=== PATIENT | female | born 1945 | race African-American/Black ===

== ENCOUNTER 2017-06-16 16:11 | Emergency (ER) | payer OTHER ==
[2017-06-16] MEDS ORDERED: NA CHLORIDE 0.9% 500 ML ONE (17:07)
[2017-06-16] MEDS ORDERED: INSULIN -REGULAR HUMAN 50 UNIT/0.5 ML ML ONE (17:07)
[2017-06-16 17:14] LABS: Absolute Lymphocytes (CBC) 2.5 K/uL (0.7-4.9); Absolute Monocytes 0.4 K/uL (0.1-1.3); Basophils % 0.5 % (0-1.3); Eosinophils % 1.4 % (0-4.4); Hematocrit 40.2 % (36.0-45.0); Lymphocytes % 42.1 % (15.3-44.8); MCH 26.3 pg (27.0-35.0); MCV 82.9 fL (80-100); MPV 10.7 fL (7.6-11.3); RBC Red Blood Cell Count 4.85 M/uL (3.86-4.86)
[2017-06-16 17:26] LABS: Potassium 4.9 mEq/L (3.6-5.0)
--- NOTE | 2017-06-16 17:51 | ER ---
Nurse's Notes [facility] Name: Miya Emanuel Age: 71 yrs Sex: Female : 1945 Arrival Date: 06/16/2017 Time: 16:14 Bed 5 Private MD: Jacob Khan Diagnosis: Hyperglycemia, unspecified Presentation: 06/16 16:08 Presenting complaint: EMS states: Pt woke up today with a BS of 460, ate breakfast and sv rechecked her BS and it was 520. On EMS arrival BS was 510. Pt stated she had a headache today but it is gone at this time. Pt is taking her medications as prescribed. Transition of care: patient was not received from another setting of care. Onset of symptoms was June 16, 2017. Care prior to arrival: 1 IV attempt but unsuccessful. 16:08 Method Of Arrival: EMS: [facility] sv 16:08 Acuity: SHIRLEY 3 sv Triage Assessment: 16:18 General: Appears in no apparent distress. comfortable, slender, well groomed, well sv developed, Behavior is calm, cooperative, appropriate for age. Pain: Denies pain. EENT: No signs and/or symptoms were reported regarding the EENT system. Neuro: Level of Consciousness is awake, alert, obeys commands, Oriented to person, place, time, situation, Moves all extremities. Full function Speech is normal. Cardiovascular: Patient's skin is warm and dry. Respiratory: Respiratory effort is even, unlabored, Respiratory pattern is regular, symmetrical. GI: Abdomen is flat, Patient currently denies diarrhea, nausea, vomiting. Derm: Skin is normal. Musculoskeletal: Range of motion: intact in all extremities. Historical: - Allergies: 16:18 No Known Allergies; sv - PMHx: 16:18 Diabetes - NIDDM; heart attack; Hepatitis C; Hyperlipidemia; Hypertension; sv - Immunization history:: Adult Immunizations up to date. - Social history:: The patient lives at home, Smoking status: Patient/guardian denies using tobacco. Screenin:19 Abuse screen: Denies threats or abuse. Denies injuries from another. Nutritional sv screening: No deficits noted. Tuberculosis screening: No symptoms or risk factors identified. Fall Risk None identified. Assessment: 16:18 Reassessment: See triage assessment. sv 17:29 Reassessment: Patient appears in no apparent distress at this time. Patient and/or sv family updated on plan of care and expected duration. Pain level reassessed. Patient is alert, oriented x 3, equal unlabored respirations, skin warm/dry/pink. Vital Signs: 16:19 BP 167 / 78; Pulse 72; Resp 18; Temp 98(O); Pulse Ox 100% on R/A; Weight 71.67 kg (R); sv Height 5 ft. 2 in. (157.48 cm) (R); Pain 0/10; 17:30 BP 163 / 88; Pulse 72; Resp 16; Pulse Ox 98% on R/A; Pain 0/10; sv 16:19 Body Mass Index 28.90 (71.67 kg, 157.48 cm) sv ED Course: 16:14 Patient arrived in ED. sv 16:14 Althea Cunningham, RN is Primary Nurse. sv 16:16 Triage completed. sv 16:16 Francisco Javier Adams MD is Attending Physician. gs 16:18 Arm band placed on right wrist. sv 16:19 Patient has correct armband on for positive identification. Bed in low position. Call sv light in reach. Side rails up X2. Pulse ox on. NIBP on. Head of bed elevated. 16:21 Inserted saline lock: 20 gauge in right antecubital area, using aseptic technique. sv Blood collected. 16:27 Jacob Khan MD is Private Physician. hb 16:37 ED physician to see patient. sv 16:57 Basic Metabolic Panel Sent. sv 16:57 CBC with Diff Sent. sv 17:51 Jacob Khan MD is Referral Physician. gs 17:59 No provider procedures requiring assistance completed. IV discontinued, intact, hb bleeding controlled, No redness/swelling at site. Pressure dressing applied. Administered Medications: 16:50 Drug: NS 0.9% 500 ml Route: IV; Rate: bolus; Site: right antecubital; sv 17:29 Follow up: Response: No adverse reaction; IV Status: Completed infusion; IV Intake: sv 500ml 16:50 Drug: Insulin Regular Human 5 units {Co-Signature: sv (Althea Cunningham RN).} Route: ss IVP; Site: left antecubital; 17:29 Follow up: Response: No adverse reaction; Blood sugar is lowered Point of Care Testing: Blood Glucose: 16:16 Blood Glucose: 416 mg/dL; sv 17:29 Blood Glucose: 305 mg/dL; sv Ranges: Intake: 17:29 IV: 500ml; Total: 500ml. sv Outcome: 17:51 Discharge ordered by . 17:59 Discharged to home ambulatory. hb 17:59 Condition: stable 17:59 Discharge instructions given to patient, Instructed on discharge instructions, follow up and referral plans. medication usage, Demonstrated understanding of instructions, follow-up care, medications. 17:59 Patient left the ED. hb Signatures: Althea Cunningham RN RN sv Lorna Orellana RN RN Martine Khoury RN RN hb Francisco Javier Adams MD MD Althea Cunningham RN sv Corrections: (The following items were deleted from the chart) 16:57 16:21 Inserted saline lock: 20 gauge in left antecubital area, using aseptic technique. sv Blood collected. sv
--- NOTE | 2017-06-16 17:51 | EDPHYS ---
Physician Documentation [facility] Name: Miya Emanuel Age: 71 yrs Sex: Female : 1945 Arrival Date: 06/16/2017 Time: 16:14 Bed 5 Private MD: Jacob Sales ED Physician Francisco Javier Adams HPI: 06/16 17:48 This 71 yrs old Black Female presents to ER via EMS with complaints of High Blood Sugar.gs 17:49 The patient or guardian reports hyperglycemia. Onset: The symptoms/episode gs began/occurred 1 month(s) ago, and became persistent. Associated signs and symptoms: Pertinent negatives: anorexia, constipation, diaphoresis. Current symptoms: In the emergency department the patient's symptoms are unchanged from the initial presentation. The patient has experienced similar episodes in the past, multiple times. The patient has been recently seen by a physician: the patient's primary care provider, Dr. sales. Historical: - Allergies: 16:18 No Known Allergies; sv - PMHx: 16:18 Diabetes - NIDDM; heart attack; Hepatitis C; Hyperlipidemia; Hypertension; sv - Immunization history:: Adult Immunizations up to date. - Social history:: The patient lives at home, Smoking status: Patient/guardian denies using tobacco. ROS: 17:49 All other systems are negative. gs Exam: 17:49 Head/Face: Normocephalic, atraumatic. Eyes: Pupils equal round and reactive to light, gs extra-ocular motions intact. Lids and lashes normal. Conjunctiva and sclera are non-icteric and not injected. Cornea within normal limits. Periorbital areas with no swelling, redness, or edema. ENT: Nares patent. No nasal discharge, no septal abnormalities noted. Tympanic membranes are normal and external auditory canals are clear. Oropharynx with no redness, swelling, or masses, exudates, or evidence of obstruction, uvula midline. Mucous membranes moist. Neck: Trachea midline, no thyromegaly or masses palpated, and no cervical lymphadenopathy. Supple, full range of motion without nuchal rigidity, or vertebral point tenderness. No Meningismus. Chest/axilla: Normal chest wall appearance and motion. Nontender with no deformity. No lesions are appreciated. Cardiovascular: Regular rate and rhythm with a normal S1 and S2. No gallops, murmurs, or rubs. Normal PMI, no JVD. No pulse deficits. Respiratory: Lungs have equal breath sounds bilaterally, clear to auscultation and percussion. No rales, rhonchi or wheezes noted. No increased work of breathing, no retractions or nasal flaring. Abdomen/GI: Soft, non-tender, with normal bowel sounds. No distension or tympany. No guarding or rebound. No evidence of tenderness throughout. Back: No spinal tenderness. No costovertebral tenderness. Full range of motion. Skin: Warm, dry with normal turgor. Normal color with no rashes, no lesions, and no evidence of cellulitis. MS/ Extremity: Pulses equal, no cyanosis. Neurovascular intact. Full, normal range of motion. Neuro: Awake and alert, GCS 15, oriented to person, place, time, and situation. Cranial nerves II-XII grossly intact. Motor strength 5/5 in all extremities. Sensory grossly intact. Cerebellar exam normal. Normal gait. 17:49 Constitutional: The patient appears alert, awake. Vital Signs: 16:19 BP 167 / 78; Pulse 72; Resp 18; Temp 98(O); Pulse Ox 100% on R/A; Weight 71.67 kg (R); sv Height 5 ft. 2 in. (157.48 cm) (R); Pain 0/10; 17:30 BP 163 / 88; Pulse 72; Resp 16; Pulse Ox 98% on R/A; Pain 0/10; sv 16:19 Body Mass Index 28.90 (71.67 kg, 157.48 cm) sv MDM: 16:35 Patient medically screened. gs 17:49 Differential diagnosis: DKA, hyperglycemia, hypoglycemic episode. Data reviewed: vital gs signs, nurses notes. Response to treatment: the patient's symptoms have markedly improved after treatment, and as a result, I will discharge patient. 06/16 16:17 Order name: Glucose, Ancillary Testing; Complete Time: 16:28 EDMS 06/16 16:41 Order name: CBC with Diff 06/16 16:41 Order name: Basic Metabolic Panel 06/16 17:16 Order name: CBC with Automated Diff; Complete Time: 17:48 EDMS 06/16 17:18 Order name: Basic Metabolic Panel; Complete Time: 17:48 EDMS 06/16 17:30 Order name: Glucose, Ancillary Testing; Complete Time: 17:48 EDMS Administered Medications: 16:50 Drug: NS 0.9% 500 ml Route: IV; Rate: bolus; Site: right antecubital; sv 17:29 Follow up: Response: No adverse reaction; IV Status: Completed infusion; IV Intake: sv 500ml 16:50 Drug: Insulin Regular Human 5 units {Co-Signature: (Althea Cunningham RN).} Route: ss IVP; Site: left antecubital; 17:29 Follow up: Response: No adverse reaction; Blood sugar is lowered sv Point of Care Testing: Blood Glucose: 16:16 Blood Glucose: 416 mg/dL; sv 17:29 Blood Glucose: 305 mg/dL; sv Ranges: Critical Glucose Levels:Adult <50 mg/dl or >400 mg/dl <40 mg/dl or >180 mg/dl Disposition: 06/16/17 17:51 Discharged to Home. Impression: Hyperglycemia, unspecified. - Condition is Stable. - Discharge Instructions: Hyperglycemia. - Medication Reconciliation Form, Thank You Letter, Antibiotic Education, Prescription Opioid Use form. - Follow up: Jacob Sales MD; When: Tomorrow. Signatures: Dispatcher [employer] Althea Menon RN RN sv Smirch, Shelby, RN RN ss Baxter, Heather, RN RN hb Starr, Gregory, MD MD Althea prabhakar
[2017-06-16 18:11] VITALS: TEMP 98
[2017-06-16 18:12] VITALS: BP 163/88; O2SAT 98
== END 2017-06-16 17:59 | disposition home or self-care (01) ==
LOC: ER 16:11
DX: E11.65 Type 2 diabetes mellitus with hyperglycemia (principal); I10 Essential (primary) hypertension
CPT/HCPCS: 36415; 80048; 82962; 85025; 96361; 96374; 99284

== ENCOUNTER 2017-07-17 12:19 | Emergency (ER) | payer OTHER ==
--- NOTE | 2017-07-17 13:11 | ER ---
Nurse's Notes [facility] Name: Miya Emanuel Age: 71 yrs Sex: Female : 1945 Arrival Date: 07/17/2017 Time: 12:16 Bed 23 Private MD: Diagnosis: Constipation Presentation: 07/17 12:16 Presenting complaint: Patient states: rectal pain that began one hour ago after having ss a small BM. Pt states, "they looked like two little rocks. I've been constipated, but not like this." Pt states her last normal bowel movement was yesterday or the day before. Transition of care: patient was not received from another setting of care. Onset of symptoms was July 17, 2017. Initial Sepsis Screen: Does the patient meet any 2 criteria? No. Patient's initial sepsis screen is negative. Does the patient have a suspected source of infection? No. Patient's initial sepsis screen is negative. Care prior to arrival: None. 12:16 Method Of Arrival: EMS: [facility] 12:16 Acuity: SHIRLEY 3 ss Historical: - Allergies: 12:22 No Known Allergies; ss - PMHx: 12:22 Diabetes - NIDDM; Hepatitis C; Hyperlipidemia; Hypertension; CAD; Myocardial infarction;ss - PSHx: 12:22 Cholecystectomy; CABG; Tonsillectomy; ss - Immunization history:: Adult Immunizations unknown. - Social history:: Smoking status: Patient/guardian denies using tobacco. Screenin:23 Abuse screen: Denies threats or abuse. Denies injuries from another. Nutritional ss screening: No deficits noted. Tuberculosis screening: Never had TB. Fall Risk None identified. Assessment: 12:23 General: Appears distressed, uncomfortable, Behavior is calm, cooperative, Denies ss fever, feeling ill, fatigue, chills. Pain: Complains of pain in rectum, anus Pain currently is 10 out of 10 on a pain scale. Quality of pain is described as sharp, tender, Pain began 1 hour ago. Is continuous. Neuro: Level of Consciousness is awake, alert, obeys commands, Oriented to person, place, time, situation. Cardiovascular: Capillary refill < 3 seconds is brisk in bilateral fingers. Respiratory: Airway is patent Respiratory effort is even, unlabored, Respiratory pattern is regular, symmetrical, Breath sounds are clear bilaterally. Denies cough, pain with respiration, pain with cough, pain with movement. GI: Abdomen is non-distended, Bowel sounds present X 4 quads. Abd is soft and non tender X 4 quads. EENT: Oral mucosa is moist. Derm: Skin is intact, is healthy with good turgor, Skin is dry, Skin is pink, warm \\T\\ dry. normal. Musculoskeletal: Circulation, motion, and sensation intact. Capillary refill < 3 seconds, is brisk, in bilateral fingers. Range of motion: intact in all extremities, Swelling absent. 12:57 Reassessment: Pt was in restroom and reports she had a large BM with little blood only ss when she wiped. Pt reports feeling much better and reports only soreness to her rectum. RADHA Davila notified. Pt states, "If y'all want me to stay, I'll stay, but I figured I would just stay here until I had a BM.". Vital Signs: 12:22 BP 214 / 97; Pulse 83; Resp 18; Temp 98.2(TE); Pulse Ox 98% on R/A; Weight 71.67 kg; ss Height 5 ft. 2 in. (157.48 cm); Pain 0/10; 13:00 BP 177 / 92; Pulse 82; Resp 15; Pulse Ox 99% on R/A; Pain 1/10; ss 12:22 Body Mass Index 28.90 (71.67 kg, 157.48 cm) ss ED Course: 12:16 Patient arrived in ED. ss 12:16 Donato Schneider PA is PHCP. cp 12:16 Lemuel Luong MD is Attending Physician. cp 12:20 Triage completed. ss 12:22 Arm band placed on right wrist. ss 12:23 Patient has correct armband on for positive identification. Placed in gown. Bed in low ss position. Call light in reach. 12:45 Lorna Orellana RN is Primary Nurse. ss 13:38 No provider procedures requiring assistance completed. Patient did not have IV access ss during this emergency room visit. Administered Medications: 13:36 Not Given (After BM, patient has no complaints): Zofran 4 mg IVP once; over 2 minutes ss 13:37 Not Given (After BM, patient has no complaints at this time. ): morphine 2 mg IVP once ss Outcome: 13:10 Discharge ordered by . cp 13:38 Discharged to home ambulatory, with family. ss 13:38 Condition: good 13:38 Discharge instructions given to patient, family, Instructed on discharge instructions, follow up and referral plans. Demonstrated understanding of instructions, follow-up care. 13:39 Patient left the ED. ss Signatures: Lorna Orellana RN RN ss Donato Schneider, RADHA GARCIA cp
--- NOTE | 2017-07-17 13:12 | EDPHYS ---
Physician Documentation [facility] Name: Miya Emanuel Age: 71 yrs Sex: Female : 1945 Arrival Date: 07/17/2017 Time: 12:16 Bed 23 Private MD: ED Physician Lemuel Luong HPI: 07/17 12:50 This 71 yrs old Black Female presents to ER via EMS with complaints of Constipation. cp 12:50 The patient presents to the emergency department with pain in the rectal area, that is cp moderate, constipation. 12:50 Onset: The symptoms/episode began/occurred today. Associate signs and symptoms: cp Pertinent positives: constipation, Pertinent negatives: abdominal pain, diarrhea, dysuria, fever, lower GI bleeding, vomiting. Historical: - Allergies: 12:22 No Known Allergies; ss - PMHx: 12:22 Diabetes - NIDDM; Hepatitis C; Hyperlipidemia; Hypertension; CAD; Myocardial infarction;ss - PSHx: 12:22 Cholecystectomy; CABG; Tonsillectomy; ss - Immunization history:: Adult Immunizations unknown. - Social history:: Smoking status: Patient/guardian denies using tobacco. ROS: 12:55 Constitutional: Negative for body aches, chills, fever, poor PO intake. cp 12:55 Eyes: Negative for injury, pain, redness, and discharge. cp 12:55 ENT: Negative for drainage from ear(s), ear pain, sore throat, difficulty swallowing, difficulty handling secretions. 12:55 Cardiovascular: Negative for chest pain, edema, palpitations. 12:55 Respiratory: Negative for cough, shortness of breath, wheezing. 12:55 Abdomen/GI: Positive for constipation, rectal pain, Negative for abdominal pain. 12:55 Back: Negative for radiated pain. 12:55 : Negative for urinary symptoms. 12:55 Skin: Negative for cellulitis, rash. 12:55 Neuro: Negative for altered mental status, dizziness, headache, weakness. 12:55 All other systems are negative. Exam: 13:00 Constitutional: The patient appears in no acute distress, alert, awake, cp non-diaphoretic, non-toxic, well developed, well nourished, uncomfortable. 13:00 Head/Face: Normocephalic, atraumatic. cp 13:00 Eyes: Periorbital structures: appear normal, Conjunctiva: normal, no exudate, no injection, Sclera: no appreciated abnormality, Lids and lashes: appear normal, bilaterally. 13:00 ENT: External ear(s): are unremarkable, Nose: is normal, Mouth: Lips: moist, Oral mucosa: moist, Posterior pharynx: is normal, airway is patent, no erythema, no exudate. 13:00 Neck: ROM/movement: is normal, is supple, without pain, no range of motions limitations, no nuchal rigidity. 13:00 Chest/axilla: Inspection: normal, Palpation: is normal, no crepitus, no tenderness. 13:00 Cardiovascular: Rate: normal, Rhythm: regular. 13:00 Respiratory: the patient does not display signs of respiratory distress, Respirations: normal, no use of accessory muscles, no retractions, no splinting, no tachypnea, Breath sounds: are clear throughout, no decreased breath sounds, no stridor, no wheezing. 13:00 Abdomen/GI: Inspection: abdomen appears normal, Bowel sounds: active, all quadrants, Palpation: abdomen is soft and non-tender, in all quadrants, rebound tenderness, is not appreciated, voluntary guarding, is not appreciated, involuntary guarding, is not appreciated, Rectal exam: the exam is deferred, patient refused. 13:00 Back: CVA tenderness, is absent. 13:00 Skin: cellulitis, is not appreciated, no rash present. Vital Signs: 12:22 BP 214 / 97; Pulse 83; Resp 18; Temp 98.2(TE); Pulse Ox 98% on R/A; Weight 71.67 kg; ss Height 5 ft. 2 in. (157.48 cm); Pain 0/10; 13:00 BP 177 / 92; Pulse 82; Resp 15; Pulse Ox 99% on R/A; Pain 1/10; ss 12:22 Body Mass Index 28.90 (71.67 kg, 157.48 cm) MDM: 12:22 Patient medically screened. cp 13:06 ED course: VSS. Patient reports having BM while in ED and now pain resolved. Will cp discharge to home for continued monitoring. 13:08 Data reviewed: vital signs, nurses notes, and as a result, I will discharge patient. cp 13:08 Counseling: I had a detailed discussion with the patient and/or guardian regarding: the cp historical points, exam findings, and any diagnostic results supporting the discharge/admit diagnosis, to return to the emergency department if symptoms worsen or persist or if there are any questions or concerns that arise at home. 07/17 12:36 Order name: Amylase, Serum cp 07/17 12:36 Order name: Basic Metabolic Panel cp 07/17 12:36 Order name: Hepatic Function cp 07/17 12:36 Order name: Lipase cp 07/17 12:36 Order name: Urine Microscopic Only 07/17 13:06 Order name: Urine Dipstick--Ancillary (enter results) 2 07/17 13:07 Order name: Urine Dipstick-Ancillary [facility] 07/17 13:35 Order name: Urine Culture [facility] 07/17 12:36 Order name: Urine Dipstick-Ancillary (obtain specimen); Complete Time: 13:37 cp Administered Medications: 13:36 Not Given (After BM, patient has no complaints): Zofran 4 mg IVP once; over 2 minutes ss 13:37 Not Given (After BM, patient has no complaints at this time. ): morphine 2 mg IVP once ss Disposition: 16:38 Co-signature as Attending Physician, Lemuel Luong MD. rn Disposition: 07/17/17 13:10 Discharged to Home. Impression: Constipation. - Condition is Stable. - Discharge Instructions: Constipation, Adult. - Medication Reconciliation Form, Thank You Letter, Antibiotic Education, Prescription Opioid Use form. - Follow up: Private Physician; When: 1 - 2 days; Reason: Recheck today's complaints. - Problem is new. - Symptoms have improved. Signatures: Dispatcher [employer] Lemuel Garza MD MD rn Smirch, Shelby, RN RN ss Donato Schneider PA PA cp Corrections: (The following items were deleted from the chart) 13:10 12:37 Abdomen Pelvis W Con+CT.RAD.BRZ ordered. EDOK EDMS 13:17 12:37 Amylase Level ordered. EDOK EDMS 13:17 12:37 Basic Metabolic Panel ordered. EDOK EDMS 13:17 12:37 Liver (Hepatic) Function ordered. EDOK EDMS 13:17 12:37 Lipase ordered. EDOK EDMS 13:17 12:37 CBC+H.LAB.BRZ ordered. EDOK EDMS 13:17 12:37 Creatinine for Radiology+C.LAB.BRZ ordered. EDMS EDMS :37 12:36 IV Saline Lock ordered. cp ss 13:37 12:36 Labs collected and sent ordered. cp ss
[2017-07-17 13:15] LABS: Urine Blood NEGATIVE (NEG); Urine Glucose NEGATIVE (NEG); Urine Protein TRACE (NEG); Urine Specific Gravity 1.015 (1.005-1.030)
[2017-07-17 13:34] LABS: Urine Bacteria <20 /HPF (<20); Urine Culture Reflex Order REFLEXED; Urine Mucus NS /HPF (NONE SEEN); Urine RBC <5 /HPF (NONE SEEN)
[2017-07-17 13:43] VITALS: TEMP 98.2
[2017-07-17 13:44] VITALS: BP 177/92; O2SAT 99
== END 2017-07-17 13:39 | disposition home or self-care (01) ==
LOC: ER 12:19
DX: K59.00 Constipation, unspecified (principal); E11.9 Type 2 diabetes mellitus without complications; I10 Essential (primary) hypertension; E78.5 Hyperlipidemia, unspecified; I25.10 Atherosclerotic heart disease of native coronary artery without angina pectoris; B18.2 Chronic viral hepatitis C; I25.2 Old myocardial infarction
CPT/HCPCS: 81003; 81015; 87086; 87088; 99283

== ENCOUNTER 2017-09-01 15:19 | Emergency (ER) | payer OTHER ==
[2017-09-01] MEDS ORDERED: PANTOPRAZOLE 40 MG INJ ONE (15:39)
[2017-09-01] MEDS ORDERED: ONDANSETRON 4 MG/2 ML VIAL ONE ×3 (15:39→17:57)
[2017-09-01 15:58] LABS: Absolute Lymphocytes (CBC) 1.7 K/uL (0.7-4.9); Absolute Monocytes 0.3 K/uL (0.1-1.3); Absolute Neutrophil 4.4 K/uL (1.8-8.0); Basophils % 0.2 % (0-1.3); Eosinophils % 0.3 % (0-4.4); Hematocrit 42.9 % (36.0-45.0); Lymphocytes % 25.8 % (15.3-44.8); MPV 10.3 fL (7.6-11.3); Monocytes % 4.6 % (3.3-12.3); RBC Red Blood Cell Count 5.23 M/uL (3.86-4.86)
[2017-09-01] MEDS ORDERED: NA CHLORIDE 0.9% 1,000 ML ONE (15:58)
[2017-09-01 16:04] LABS: Protime INR 1.03
[2017-09-01 16:27] LABS: Potassium 4.4 mEq/L (3.6-5.0)
[2017-09-01 16:33] LABS: Albumin 3.9 g/dL (3.2-5.5); Bilirubin Direct 0.2 mg/dL (0-0.2); Bilirubin Total 1.3 mg/dL (0.3-1.2); Magnesium 1.5 mg/dL (1.8-2.5); Protein, Total 8.3 g/dL (6.0-8.3)
[2017-09-01 16:34] LABS: CKMB Creatine Kinase MB 3.2 ng/ml (0.3-4.0)
--- NOTE | 2017-09-01 16:39 | RAD REPORT ---
EXAM DESCRIPTION: CT - Head Brain Wo Cont - 09/01/2017 4:28 pm CLINICAL HISTORY: Dizziness and vomiting COMPARISON: 2015 TECHNIQUE: Computed axial tomography of the head was obtained. IV contrast was not requested. All CT scans are performed using dose optimization technique as appropriate and may include automated exposure control or mA/KV adjustment according to patient size. FINDINGS: An intracranial bleed is not seen . The ventricles are normal in caliber. No extra-axial fluid collection is noted. Mild to moderate low-density areas within periventricular, deep and subcortical white matter likely represent ischemic changes secondary to small vessel disease . Fluid within the sinuses/ mastoids is not seen. IMPRESSION: No acute intracranial abnormality is seen. If patient's symptoms persist MRI of the bra in would be recommended.
[2017-09-01] MEDS ORDERED: cloNIDine HCl 0.1 MG TAB ONE (16:52)
[2017-09-01] MEDS ORDERED: HYDRALAZINE HCL 20 MG/ML VIAL ONE (17:57)
--- NOTE | 2017-09-01 19:15 | RAD REPORT ---
EXAM DESCRIPTION: CT - Chest Abdomen Pelvis W Cont - 09/01/2017 6:53 pm CLINICAL HISTORY: Chest and abdominal pain. Vomiting COMPARISON: none TECHNIQUE: Computed axial tomography of the chest, abdomen and pelvis was obtained. 100 cc Isovue-30 0 was administered intravenously. Oral contrast was not requested. This limits evaluation of bowel. All CT scans are performed using dose optimization technique as appropriate and may include automated exposure control or mA/KV adjustment according to patient size. FINDINGS: An aberrant right subclavian artery is present. A pleural effusion is not present. A pericardial effusion is not seen. A 13 millimeter nodule within the left upper lobe contains fat and may represent a hamartoma. No mediastinal or hilar lymphadenopathy is noted. The liver, spleen, pancreas, and adrenals appear unremarkable. Renal cortical thinning may be secondary to prior inflammation. The wall of the distal stomach appears thickened Spondylosis involves lumbar spine resulting in spinal stenosis. The gallbladder has been removed. There is no evidence of diverticulitis. An adnexal mass is not seen . A tiny umbilical hernia is present. Right iliac and femoral stents are in place. Atherosclerosis is noted. IMPRESSION: No acute abnormality involving the chest Apparent thickening of the wall of the distal stomach may be secondary to incomplete distention or pa thology such as inflammation
--- NOTE | 2017-09-01 19:20 | RAD REPORT ---
EXAM DESCRIPTION: Krysta Single View09/01/2017 4:25 pm CLINICAL HISTORY: Chest pain COMPARISON: May 2016 FINDINGS: A left upper lobe nodular opacity is unchanged. A CT chest on today's date demonstrates th is to contain fat and likely representing a hamartoma. The lungs appear clear of acute infiltrate. The heart is mildly enlarged. Postsurgical changes involve the chest. IMPRESSION: No acute abnormalities displayed
[2017-09-01 19:25] LABS: Urine Blood 2+ (NEG); Urine Glucose NEGATIVE (NEG); Urine Protein 2+ (NEG)
[2017-09-01] MEDS ORDERED: METOCLOPRAMIDE 10 MG/2mL INJ ONE (20:32)
[2017-09-01] MEDS ORDERED: ACETAMINOPHEN 500 MG TAB ONE (20:33)
[2017-09-01] MEDS ORDERED: LIDOCAINE VISCOUS 2% SOLN 15 ML UDC ONE (20:51)
[2017-09-01] MEDS ORDERED: MAGNE/ALUM HYDROXD 30 ML UCUP ONE (20:51)
--- NOTE | 2017-09-01 21:31 | ER ---
Nurse's Notes [facility] Name: Miya Emanuel Age: 71 yrs Sex: Female : 1945 Arrival Date: 09/01/2017 Time: 15:22 Bed 7 Private MD: Diagnosis: Nausea and vomiting;Hypertensive heart disease Presentation: 09/01 15:22 Presenting complaint: EMS states: pt c/o nausea vomiting started this morning around 0830 after taking her insulin. EMS had bp of 220/110, and bgl of 127. pt c/o nausea. Transition of care: patient was not received from another setting of care. Onset of symptoms was September 01, 2017 at 08:30. Risk Assessment: Do you want to hurt yourself or someone else? Patient reports no desire to harm self or others. Initial Sepsis Screen: Does the patient meet any 2 criteria? No. Patient's initial sepsis screen is negative. Does the patient have a suspected source of infection? No. Patient's initial sepsis screen is negative. Care prior to arrival: None. 15:22 Method Of Arrival: EMS: [facility] 15: Acuity: SHIRLEY 3 ch Triage Assessment: 15:27 General: Appears in no apparent distress. comfortable, Behavior is calm, cooperative, ch appropriate for age. Pain: Denies pain. Neuro: No deficits noted. GI: Reports cramping, nausea, vomiting. Historical: - Allergies: 15: No Known Allergies; ch - Home Meds: 15: aspirin 81 mg Oral chew 1 tab once daily [Active]; metformin 1,000 mg Oral tr24 2 tabs once daily [Active]; clopidogrel 75 mg Oral tab 1 tab once daily [Active]; carvedilol 6.25 mg Oral tab 1 tab 2 times per day [Active]; pravastatin 20 mg Oral tab 1 tab once daily [Active]; lisinopril 10 mg Oral tab 1 tab once daily [Active]; pantoprazole 40 mg oral TbEC 1 tab once daily [Active]; vorapaxar oral oral once daily [Active]; sitagliptin 100 mg Oral 1 tab once daily [Active]; - PMHx: 15:27 CAD; Diabetes - NIDDM; heart attack; Hepatitis C; Hyperlipidemia; Hypertension; Myocardial infarction; - PSHx: 15:27 Cholecystectomy; CABG; Tonsillectomy; 7 cardiac stents; ch - Immunization history:: Adult Immunizations up to date. - Social history:: Smoking status: Patient/guardian denies using tobacco. - Ebola Screening: : Patient negative for fever greater than or equal to 101.5 degrees Fahrenheit, and additional compatible Ebola Virus Disease symptoms Patient denies exposure to infectious person Patient denies travel to an Ebola-affected area in the 21 days before illness onset No symptoms or risks identified at this time. Screenin:07 Abuse screen: Denies threats or abuse. Denies injuries from another. Nutritional jl7 screening: No deficits noted. Tuberculosis screening: No symptoms or risk factors identified. Fall Risk IV access (20 points). Total Chavez Fall Scale indicates No Risk (0-24 pts). Assessment: 15:30 General: Appears in no apparent distress. uncomfortable, Behavior is calm, cooperative. jl7 Pain: Denies pain. Neuro: Level of Consciousness is awake, alert, obeys commands, Oriented to person, place, time, situation. Cardiovascular: Heart tones S1 S2 present. Respiratory: Airway is patent Respiratory effort is even, unlabored, Respiratory pattern is regular, symmetrical. GI: Abdomen is round non-distended, Bowel sounds present X 4 quads. : No signs and/or symptoms were reported regarding the genitourinary system. EENT: No signs and/or symptoms were reported regarding the EENT system. Derm: Skin is pink, warm \T\ dry. Musculoskeletal: No signs and/or symptoms reported regarding the musculoskeletal system. 16:23 Reassessment: Patient appears in no apparent distress at this time. Patient and/or ch family updated on plan of care and expected duration. Pain level reassessed. Patient is alert, oriented x 3, equal unlabored respirations, skin warm/dry/pink. donato page notified of pt bp, awaiting ct resuts to medicated pt bp per donato page orders. Patient states feeling better. Patient states symptoms have improved. 16:59 Reassessment: Patient appears in no apparent distress at this time. pt states she fells ch more nauseous. pt medicated per orders. 17:30 Reassessment: Patient appears in no apparent distress at this time. pt urinated into a bed frias. pt finished contrast. ct notified. 18:23 Reassessment: Patient appears in no apparent distress at this time. Patient and/or ch family updated on plan of care and expected duration. Pain level reassessed. Patient is alert, oriented x 3, equal unlabored respirations, skin warm/dry/pink. Patient states feeling better. Patient states symptoms have improved. 19:19 Reassessment: Patient appears in no apparent distress at this time. Patient and/or ch family updated on plan of care and expected duration. Pain level reassessed. Patient is alert, oriented x 3, equal unlabored respirations, skin warm/dry/pink. report given to Phoebe. 22:35 Reassessment: Patient and/or family updated on plan of care and expected duration. Pain tl1 level reassessed. Patient is alert, oriented x 3, equal unlabored respirations, skin warm/dry/pink. Patient denies pain at this time. Patient states feeling better. Patient states symptoms have improved. Vital Signs: 15:27 BP 195 / 105; Pulse 82; Resp 16; Temp 98.7(O); Pulse Ox 100% on R/A; Weight 68.95 kg; Height 5 ft. 2 in. (157.48 cm); Pain 0/10; 16:07 BP 192 / 90; Pulse 71; Resp 16; Pulse Ox 97% ; jl7 16:23 BP 202 / 115; Pulse 68; Resp 14; Temp 98.3; Pulse Ox 99% on R/A; Pain 0/10; ch 18:23 BP 145 / 86; Pulse 87; Resp 14; Pulse Ox 96% on R/A; Pain 0/10; ch 19:11 BP 157 / 81; Pulse 86; Resp 18; Pulse Ox 100% on R/A; tl2 19:46 BP 133 / 79; Pulse 88; Resp 16; Pulse Ox 98% on R/A; mt 20:40 BP 127 / 78; Pulse 95; Resp 14; Temp 98.2; Pulse Ox 97% on R/A; tl1 20:44 BP 132 / 76; Pulse 88; Resp 17; Pulse Ox 97% on R/A; tl2 21:19 BP 120 / 62; Pulse 84; Resp 15; Pulse Ox 96% on R/A; mt 22:36 BP 116 / 71; Pulse 87; Resp 16; Temp 98.2; Pulse Ox 97% on R/A; Pain 0/10; tl1 15:27 Body Mass Index 27.80 (68.95 kg, 157.48 cm) ED Course: 15:22 Patient arrived in ED. ch 15:24 Triage completed. ch 15:27 Arm band placed on left wrist. Patient placed in an exam room, on a stretcher. ch 15:30 Donato Schneidre PA is PHCP. cp 15:30 Donato Walden MD is Attending Physician. cp 15:30 Ashley Gautam, RN is Primary Nurse. ch 15:34 EKG done, by ED staff. jp3 16:07 Patient has correct armband on for positive identification. Placed in gown. Bed in low jl7 position. Call light in reach. Side rails up X 1. compliance monitor on. Pulse ox on. NIBP on. Warm blanket given. 16:07 Initial lab(s) drawn, by me, sent to lab. Inserted saline lock: 20 gauge in right jl7 antecubital area, using aseptic technique. Blood collected. 16:23 X-ray completed. Portable x-ray completed in exam room. Patient tolerated procedure la2 well. 16:26 XRAY Chest (1 view) In Process Unspecified. EDMS 16:28 CT Head Brain wo Cont In Process Unspecified. EDMS 18:53 CT Chest, Abdomen, Pelvis - W/Contrast In Process Unspecified. EDMS 19:01 CT completed. Patient tolerated procedure well. Patient moved back from CT. bq 19:17 Primary Nurse role handed off by Ashley Gautam, RN tl2 19:17 Rebeca Edwards, RN is Primary Nurse. tl2 19:18 Primary Nurse role handed off by Rebeca Edwards, JALIL ch 19:18 Ashley Gautam, JALIL is Primary Nurse. ch 20:28 Phoebe Trammell, JALIL is Primary Nurse. tl1 22:35 No provider procedures requiring assistance completed. IV discontinued, intact, tl1 bleeding controlled, No redness/swelling at site. Pressure dressing applied. Administered Medications: 15:41 Drug: Zofran 4 mg Route: IVP; Site: right antecubital; ch 16:01 Follow up: Response: No adverse reaction; Nausea is decreased jl7 15:41 Drug: ProTONIX 40 mg Route: IVP; Site: right antecubital; ch 16:02 Follow up: Response: No adverse reaction jl7 16:01 Drug: NS 0.9% 1000 ml Route: IV; Rate: 75 ml/hr; Site: right antecubital; jl7 22:34 Follow up: IV Status: Completed infusion tl1 16:01 Drug: NS 0.9% 250 ml Route: IV; Rate: bolus; Site: right antecubital; jl7 18:24 Follow up: IV Status: Completed infusion; IV Intake: 250ml ch 16:59 Drug: cloNIDine 0.2 mg Route: PO; ch 18:01 Follow up: Response: No adverse reaction; Marked relief of symptoms ch 16:59 Drug: NS 0.9% 250 ml Route: IV; Rate: bolus; Site: right antecubital; ch 18:24 Follow up: IV Status: Completed infusion; IV Intake: 250ml ch 17:00 Drug: Zofran 4 mg Route: IVP; Site: right antecubital; ch 18:01 Follow up: Response: No adverse reaction; Marked relief of symptoms ch 17:59 Drug: Zofran 4 mg Route: IVP; Site: right antecubital; ch 18:01 Follow up: Response: No adverse reaction; Marked relief of symptoms ch 18:00 Drug: hydrALAZINE 10 mg Route: IV; Rate: calculated rate; Site: right antecubital; ch 18:23 Follow up: IV Status: Completed infusion; IV Intake: 10ml ch 20:40 Drug: Reglan 10 mg Route: IVP; Infused Over: 3 mins; Site: right antecubital; tl1 22:34 Follow up: Response: No adverse reaction; Marked relief of symptoms; Nausea is decreasedtl1 20:40 Drug: Tylenol 1000 mg Route: PO; tl1 22:34 Follow up: Response: No adverse reaction; Marked relief of symptoms; Pain is decreased tl1 20:51 Drug: GI Cocktail without - (Maalox Suspension 30 ml, Lidocaine Liquid 2 % 15 tl2 ml) Route: PO; 22:33 Follow up: Response: No adverse reaction; Marked relief of symptoms tl1 21:35 Drug: Magnesium Sulfate 2 grams Route: IVPB; Infused Over: 30 mins; Site: right tl1 antecubital; 22:33 Follow up: IV Status: Completed infusion tl1 Intake: 18:23 IV: 10ml; Total: 10ml. ch 18:24 IV: 250ml; Total: 260ml. ch 18:24 IV: 250ml; Total: 510ml. ch Outcome: 21:31 Discharge ordered by . cp 22:35 Discharged to home via wheelchair, with family. tl1 22:35 Condition: stable 22:35 Discharge instructions given to patient, family, Instructed on discharge instructions, follow up and referral plans. medication usage, Demonstrated understanding of instructions, follow-up care, medications, Prescriptions given X 2. 22:37 Patient left the ED. tl1 Signatures: Dispatcher [employer] EDMS Ashley Gautam, RN RN Tory Mcginnis Tonya RN RN tl1 Donato Schneider PA PA cp Knox, Taylor RN RN tl2 Tish Potts RN RN jl7 Soni Rey mt, Leslie la2 Pisarski, Jacob 3
--- NOTE | 2017-09-01 21:32 | EDPHYS ---
Physician Documentation [facility] Name: Miya Emanuel Age: 71 yrs Sex: Female : 1945 Arrival Date: 09/01/2017 Time: 15:22 Bed 7 Private MD: ED Physician Donato Walden HPI: 09/01 16:00 This 71 yrs old Black Female presents to ER via EMS with complaints of Nausea/Vomiting. cp 16:00 Onset: The symptoms/episode began/occurred this morning, at 08:30. cp 16:00 The patient presents to the emergency department with nausea, that is moderate, cp vomiting, that is intermittent, described as bilious, abdominal pain, of the epigastric area, described as waxing and waning, and does not radiate. Possible causes: unknown. Associated signs and symptoms: Pertinent positives: abdominal pain, headache, Pertinent negatives: constipation, diarrhea, dysuria, fever, GI bleeding. Severity of symptoms: in the emergency department the symptoms are unchanged despite home interventions. Historical: - Allergies: 15:27 No Known Allergies; ch - Home Meds: 15:27 aspirin 81 mg Oral chew 1 tab once daily [Active]; metformin 1,000 mg Oral tr24 2 tabs ch once daily [Active]; clopidogrel 75 mg Oral tab 1 tab once daily [Active]; carvedilol 6.25 mg Oral tab 1 tab 2 times per day [Active]; pravastatin 20 mg Oral tab 1 tab once daily [Active]; lisinopril 10 mg Oral tab 1 tab once daily [Active]; pantoprazole 40 mg oral TbEC 1 tab once daily [Active]; vorapaxar oral oral once daily [Active]; sitagliptin 100 mg Oral 1 tab once daily [Active]; - PMHx: 15:27 CAD; Diabetes - NIDDM; heart attack; Hepatitis C; Hyperlipidemia; Hypertension; ch Myocardial infarction; - PSHx: 15:27 Cholecystectomy; CABG; Tonsillectomy; 7 cardiac stents; ch - Immunization history:: Adult Immunizations up to date. - Social history:: Smoking status: Patient/guardian denies using tobacco. - Ebola Screening: : Patient negative for fever greater than or equal to 101.5 degrees Fahrenheit, and additional compatible Ebola Virus Disease symptoms Patient denies exposure to infectious person Patient denies travel to an Ebola-affected area in the 21 days before illness onset No symptoms or risks identified at this time. ROS: 16:05 Constitutional: Negative for body aches, chills, fever, poor PO intake. cp 16:05 Eyes: Negative for injury, pain, redness, and discharge. cp 16:05 ENT: Negative for drainage from ear(s), ear pain, sore throat, difficulty swallowing, difficulty handling secretions. 16:05 Cardiovascular: Negative for chest pain, edema, palpitations. 16:05 Respiratory: Negative for cough, pleurisy, wheezing. 16:05 Abdomen/GI: Positive for abdominal pain, nausea, vomiting, of the epigastric area, Negative for diarrhea, constipation, black/tarry stool, rectal bleeding. 16:05 Back: Negative for pain at rest, pain with movement, radiated pain. 16:05 : Negative for urinary symptoms. 16:05 Skin: Negative for cellulitis, rash. 16:05 Neuro: Positive for headache, speech changes, Negative for altered mental status, loss of consciousness, syncope, visual changes, weakness. 16:05 All other systems are negative. Exam: 15:35 ECG was reviewed by the Attending Physician. cp 16:11 Constitutional: The patient appears in no acute distress, alert, awake, cp non-diaphoretic, non-toxic, well developed, well nourished, uncomfortable. 16:11 Head/Face: Normocephalic, atraumatic. cp 16:11 Eyes: Periorbital structures: appear normal, Pupils: equal, round, and reactive to light and accomodation, Extraocular movements: intact throughout, Conjunctiva: normal, no exudate, no injection, Sclera: no appreciated abnormality, Lids and lashes: appear normal, bilaterally, Nystagmus: is not appreciated. 16:11 ENT: External ear(s): are unremarkable, Ear canal(s): are normal, clear, TM's: bulging, is not appreciated, bilaterally, dullness, bilaterally, erythema, is not appreciated, bilaterally, Nose: is normal, Mouth: Lips: moist, Oral mucosa: pink and intact, moist, Posterior pharynx: is normal, airway is patent, no erythema, no exudate, Voice: is normal. 16:11 Neck: ROM/movement: is normal, is supple, without pain, no range of motions limitations, no meningismus, no nuchal rigidity, Lymph nodes: no appreciated lymphadenopathy. 16:11 Chest/axilla: Inspection: normal, Palpation: is normal, no crepitus, no tenderness. 16:11 Cardiovascular: Rate: normal, Rhythm: regular, Edema: is not appreciated, JVD: is not appreciated. 16:11 Respiratory: the patient does not display signs of respiratory distress, Respirations: normal, no use of accessory muscles, no retractions, no splinting, no tachypnea, labored breathing, is not present, Breath sounds: are clear throughout, no decreased breath sounds, no stridor, no wheezing. 16:11 Abdomen/GI: Inspection: abdomen appears normal, Bowel sounds: active, all quadrants, Palpation: soft, in all quadrants, moderate abdominal tenderness, in the epigastric area, rebound tenderness, is not appreciated, voluntary guarding, is elicited in the epigastric area, involuntary guarding, is not appreciated. 16:11 Back: pain, is absent, ROM is normal. 16:11 Musculoskeletal/extremity: Exam is negative for deformity, edema, injury. 16:11 Skin: cellulitis, is not appreciated, no rash present. 16:11 Neuro: Orientation: to person, place \T\ time. Mentation: lucid, able to follow commands, Cerebellar function: is grossly normal, Motor: moves all fours, strength is normal, Sensation: no obvious gross deficits. 21:02 ECG was reviewed by the Attending Physician. cp Vital Signs: 15:27 BP 195 / 105; Pulse 82; Resp 16; Temp 98.7(O); Pulse Ox 100% on R/A; Weight 68.95 kg; ch Height 5 ft. 2 in. (157.48 cm); Pain 0/10; 16:07 BP 192 / 90; Pulse 71; Resp 16; Pulse Ox 97% ; jl7 16:23 BP 202 / 115; Pulse 68; Resp 14; Temp 98.3; Pulse Ox 99% on R/A; Pain 0/10; ch 18:23 BP 145 / 86; Pulse 87; Resp 14; Pulse Ox 96% on R/A; Pain 0/10; ch 19:11 BP 157 / 81; Pulse 86; Resp 18; Pulse Ox 100% on R/A; tl2 19:46 BP 133 / 79; Pulse 88; Resp 16; Pulse Ox 98% on R/A; mt 20:40 BP 127 / 78; Pulse 95; Resp 14; Temp 98.2; Pulse Ox 97% on R/A; tl1 20:44 BP 132 / 76; Pulse 88; Resp 17; Pulse Ox 97% on R/A; tl2 21:19 BP 120 / 62; Pulse 84; Resp 15; Pulse Ox 96% on R/A; mt 22:36 BP 116 / 71; Pulse 87; Resp 16; Temp 98.2; Pulse Ox 97% on R/A; Pain 0/10; tl1 15:27 Body Mass Index 27.80 (68.95 kg, 157.48 cm) ch MDM: 15:36 Patient medically screened. chanel 16:00 Differential diagnosis: gastritis, pancreatitis, viral gastroenteritis, cp gastroenteritis, acute OH, angina, unstable angina, GI bleed, CVA. 21:30 Data reviewed: vital signs, nurses notes, lab test result(s), EKG, radiologic studies, cp CT scan, plain films, and as a result, I will discharge patient. 21:30 Response to treatment: the patient's symptoms have markedly improved after treatment, cp VSS. Blood pressure markedly improve, nausea and vomiting resolved. Will discharge to home for continued monitoring. 09/01 15:40 Order name: Basic Metabolic Panel; Complete Time: 16:40 cp 09/01 16:40 Interpretation: Normal except: GLUC 129; CRE 1.03; GFR 64. cp 09/01 15:40 Order name: BNP; Complete Time: 16:40 cp 09/01 15:40 Order name: CBC with Diff; Complete Time: 16:40 cp 09/01 16:40 Interpretation: Normal except: RBC 5.23; MCH 26.0; MCHC 31.7; RDW 15.8. cp 09/01 15:40 Order name: Ckmb; Complete Time: 16:40 cp 09/01 15:40 Order name: CPK; Complete Time: 16:40 cp 09/01 15:40 Order name: LFT's; Complete Time: 16:40 cp 09/01 20:41 Interpretation: Normal except: BILIT 1.3; GLOB 4.4; A/G 0.9. cp 09/01 15:40 Order name: Magnesium; Complete Time: 16:40 cp 09/01 20:41 Interpretation: Abnormal: MG 1.5. cp 06/10 15:40 Order name: PT-INR; Complete Time: 16:40 cp 06/10 15:40 Order name: Ptt, Activated; Complete Time: 16:40 cp 06/10 15:40 Order name: Troponin (emerg Dept Use Only); Complete Time: 16:40 cp 06/10 15:40 Order name: XRAY Chest (1 view); Complete Time: 19:31 cp 06/10 15:40 Order name: Lipase; Complete Time: 16:40 cp /10 17:41 Order name: Urine Dipstick--Ancillary (enter results); Complete Time: 19:31 bd 06/10 19:31 Interpretation: Normal except: UBLD 2+; UPROT 2+; UESTR TRACE. cp 06/10 20:49 Order name: Troponin I; Complete Time: 21:29 cp 06/10 15:40 Order name: EKG; Complete Time: 15:40 cp 06/10 15:43 Order name: CT Head Brain wo Cont; Complete Time: 16:40 cp /10 16:43 Order name: CT Chest, Abdomen, Pelvis - W/Contrast; Complete Time: 19:31 cp 06/10 15:40 Order name: Cardiac monitoring; Complete Time: 15:41 cp 06/10 15:40 Order name: EKG - Nurse/Tech; Complete Time: 15:41 cp 06/10 15:40 Order name: IV Saline Lock; Complete Time: 15:41 cp 06/10 15:40 Order name: Labs collected and sent; Complete Time: 16:59 cp 06/10 15:40 Order name: O2 Per Protocol; Complete Time: 15:41 cp 06/10 15:40 Order name: O2 Sat Monitoring; Complete Time: 15:41 cp 06/10 15:40 Order name: Urine Dipstick-Ancillary (obtain specimen); Complete Time: 18:25 cp 06/10 20:43 Order name: PO challenge; Complete Time: 20:49 cp 06/10 20:49 Order name: EKG; Complete Time: 20:50 cp 06/10 20:49 Order name: EKG - Nurse/Tech; Complete Time: 20:52 cp EC:35 Rate is 75 beats/min. Rhythm is regular. WA interval is normal. QRS interval is normal. cp QT interval is normal. T waves are Inverted in lead aVF. No ST changes noted. Interpreted by me. Reviewed by me. 21:02 Rate is 81 beats/min. Rhythm is regular. WA interval is normal. QRS interval is normal. cp QT interval is normal. T waves are Inverted in lead aVF. No ST changes noted. Interpreted by me. Reviewed by me. Administered Medications: 15:41 Drug: Zofran 4 mg Route: IVP; Site: right antecubital; ch 16:01 Follow up: Response: No adverse reaction; Nausea is decreased jl7 15:41 Drug: ProTONIX 40 mg Route: IVP; Site: right antecubital; ch 16:02 Follow up: Response: No adverse reaction jl7 16:01 Drug: NS 0.9% 1000 ml Route: IV; Rate: 75 ml/hr; Site: right antecubital; jl7 22:34 Follow up: IV Status: Completed infusion tl1 16:01 Drug: NS 0.9% 250 ml Route: IV; Rate: bolus; Site: right antecubital; jl7 18:24 Follow up: IV Status: Completed infusion; IV Intake: 250ml ch 16:59 Drug: cloNIDine 0.2 mg Route: PO; ch 18:01 Follow up: Response: No adverse reaction; Marked relief of symptoms ch 16:59 Drug: NS 0.9% 250 ml Route: IV; Rate: bolus; Site: right antecubital; ch 18:24 Follow up: IV Status: Completed infusion; IV Intake: 250ml ch 17:00 Drug: Zofran 4 mg Route: IVP; Site: right antecubital; ch 18:01 Follow up: Response: No adverse reaction; Marked relief of symptoms ch 17:59 Drug: Zofran 4 mg Route: IVP; Site: right antecubital; ch 18:01 Follow up: Response: No adverse reaction; Marked relief of symptoms ch 18:00 Drug: hydrALAZINE 10 mg Route: IV; Rate: calculated rate; Site: right antecubital; ch 18:23 Follow up: IV Status: Completed infusion; IV Intake: 10ml ch 20:40 Drug: Reglan 10 mg Route: IVP; Infused Over: 3 mins; Site: right antecubital; tl1 22:34 Follow up: Response: No adverse reaction; Marked relief of symptoms; Nausea is decreasedtl1 20:40 Drug: Tylenol 1000 mg Route: PO; tl1 22:34 Follow up: Response: No adverse reaction; Marked relief of symptoms; Pain is decreased tl1 20:51 Drug: GI Cocktail without - (Maalox Suspension 30 ml, Lidocaine Liquid 2 % 15 tl2 ml) Route: PO; 22:33 Follow up: Response: No adverse reaction; Marked relief of symptoms tl1 21:35 Drug: Magnesium Sulfate 2 grams Route: IVPB; Infused Over: 30 mins; Site: right tl1 antecubital; 22:33 Follow up: IV Status: Completed infusion tl1 Disposition: 09/02 09:09 Co-signature as Attending Physician, Donato Walden MD I agree with the assessment and chanel plan of care. Disposition: 09/01/17 21:31 Discharged to Home. Impression: Nausea and vomiting, Hypertensive heart disease. - Condition is Stable. - Discharge Instructions: Nausea and Vomiting, Managing Your High Blood Pressure. - Prescriptions for Protonix 40 mg Oral Tablet - take 1 tablet by ORAL route once daily; 30 tablet. Zofran 4 mg Oral Tablet - take 1 tablet by ORAL route every 12 hours As needed; 20 tablet. - Medication Reconciliation Form, Thank You Letter, Antibiotic Education, Prescription Opioid Use form. - Follow up: Private Physician; When: 1 - 2 days; Reason: Recheck today's complaints. - Problem is new. - Symptoms have improved. Signatures: Dispatcher [employer] EDAshley Shah, RN Donato Villalba ch, MD MD cha Lasagna, Tonya RN RN tl1 Donato Schneider PA PA cp Rebeca Edwards RN RN tl2 Tish Potts RN RN jl7 Corrections: (The following items were deleted from the chart) 09/01 22:37 21:31 09/01/2017 21:31 Discharged to Home. Impression: Nausea and vomiting; tl1 Hypertensive heart disease. Condition is Stable. Forms are Medication Reconciliation Form, Thank You Letter, Antibiotic Education, Prescription Opioid Use. Follow up: Private Physician; When: 1 - 2 days; Reason: Recheck today's complaints. Problem is new. Symptoms have improved. cp
[2017-09-01] MEDS ORDERED: Magnesium Sulfate 2gm IVPB 2 G/50 ML BAG IV ONE (21:34)
[2017-09-01 22:48] VITALS: TEMP 98.2
[2017-09-01 22:52] VITALS: BP 116/71; O2SAT 97
--- NOTE | 2017-09-02 06:29 | EKG ---
Test Date: 2017-09-01 Test Time: 20:55:51 Scoop Filler: KENDRICK MEASUREMENT RESULTS: Intervals: Rate: 81 PA: 140 QRSD: 92 QT: 404 QTc: 469 [place]: P: 61 PA: 140 QRS: 31 T: -27 INTERPRETIVE STATEMENTS: Normal sinus rhythm Inferior infarct, age undetermined Abnormal ECG Compared to ECG 06/12/2016 03:06:06 No significant changes Electronically Signed On 09-02-17 06:28:26 CDT by Alireza Brooks
--- NOTE | 2017-09-02 07:33 | EKG ---
Test Date: 2017-09-01 Test Time: 15:29:40 Crematory Attendant: ELISA MEASUREMENT RESULTS: Intervals: Rate: 75 IA: 152 QRSD: 98 QT: 402 QTc: 448 [place]: P: 56 IA: 152 QRS: 20 T: -20 INTERPRETIVE STATEMENTS: Normal sinus rhythm Minimal voltage criteria for LVH, may be normal variant Inferior infarct, age undetermined Abnormal ECG Compared to ECG 06/12/2016 03:06:06 Left ventricular hypertrophy now present Myocardial infarct finding still present Electronically Signed On 09-02-17 07:32:55 CDT by Alireza Brooks
== END 2017-09-01 22:37 | disposition home or self-care (01) ==
LOC: ER 15:19
DX: I11.9 Hypertensive heart disease without heart failure (principal); I10 Essential (primary) hypertension; E11.9 Type 2 diabetes mellitus without complications; E78.5 Hyperlipidemia, unspecified; I25.10 Atherosclerotic heart disease of native coronary artery without angina pectoris; Z79.82 Long term (current) use of aspirin; Z95.1 Presence of aortocoronary bypass graft; Z95.818 Presence of other cardiac implants and grafts
CPT/HCPCS: 36415; 70450; 71045; 71260; 74177; 80048; 80076; 81003; 82550; 82553; 83690; 83735; 83880; 84484 ×2; 85025; 85610; 85730; 93005 ×2; C9113; J0360; J2405 ×3; J2765; J3475; J7030; Q9967; 82962; 96361; 96365; 96367; 96375; 99285

== ENCOUNTER 2018-09-14 15:14 | Emergency (ER) | payer OTHER ==
--- OUTSIDE RECORDS SUMMARY | 2018-09-14 15:55 | XMS REPORT ---
:1945 Author Organization [employer] Care Team Providers Name Role Phone Jacob Khan Provider Role Unavailable Allergies, Adverse Reactions, Alerts Substance Reaction Event Type N.K.D.A. Info Not Available Non Drug Allergy Problems Problem Type Condition Code Onset Dates Condition Status Problem Stress incontinence N39.3 Active Problem Hyperlipidemia E78.5 Active Problem Hypertension I10 Active Problem Primary insomnia F51.01 Active Problem Chronic hepatitis C without hepatic B18.2 Active coma Problem Chronic renal failure, stage 2 N18.2 Active (mild) Problem Esophagitis, unspecified K20.9 Active Problem Osteoarthritis of knees, bilateral M17.0 Active Problem Hepatitis C carrier Z22.52 Active Problem Type 2 diabetes mellitus with other E11.69 Active specified complication Problem Respiratory tract congestion with R05 Active cough Problem Encounter for screening mammogram Z12.31 Active for malignant neoplasm of breast Assessment Medicare annual wellness visit, Z00.00 Active subsequent Problem Coronary atherosclerosis of artery I25.810 Active bypass graft Medications Medication Code Code Instructions Start End Status Dosage System Date Date Pantoprazole ND 71132943618 20 MG Oral Active not Sodium defined NovoTwist [facility] 44483303994 32G X 5 MM Active not defined Metformin HCl ND 77485735607 500 MG Oral Active 1 tablet twice a day with a meal Mavyret ND 17660142362 100-40 MG Orally Active 3 tablets Once a day Lisinopril ND 37818081671 20 MG Orally Active 1 tablet Once a day Ranexa ND 76073971897 500 MG Oral Active not defined Tresiba ND 85385159102 200 UNIT/ML May 10, Active 26 units FlexTouch Subcutaneous 2017 daily Atorvastatin ND 42629800725 40 MG Active TAKE 1 Calcium TABLET ONCE DAILY INTHE EVENING Nitroglycerin ND 45214670981 0.4 MG May Active as Sublingual as 2017 directed needed for chest pain Flonase ND 62861020938 50 MCG/ACT May 10, Active 1 spray in Nasally Once a 2018 each day nostril Zolpidem [facility] 77373758495 5 MG Orally Once August 12, Active 1 tablet Tartrate a day 2018 at bedtime Carvedilol [facility] 91463333471 12.5 MG Oral Active not defined Victoza [facility] 85977005644 18 MG/3ML Active 1.8 units Subcutaneous Nitroglycerin [facility] 55230630850 0.4 MG Active as Sublingual directed Clopidogrel [facility] 56936548575 75 MG Oral Active not Bisulfate defined Prevnar 13 [facility] 44912097222 - Intramuscular Active not defined Restasis [facility] 14057550438 0.05 % Active 1 drop Ophthalmic Twice into a day affected eye Results No Known Results Summary Purpose [employer] Submission
--- OUTSIDE RECORDS SUMMARY | 2018-09-14 15:55 | XMS REPORT ---
:1945 Author Organization [employer] Care Team Providers Name Role Phone Jacob Khan Provider Role Unavailable Allergies No Known Allergies Problems Problem Type Condition Code Onset Dates [...] Z12.31 Active for malignant neoplasm of breast Problem Coronary atherosclerosis of artery I25.810 Active bypass graft Medications No Known Medications Results No Known Results Summary Purpose [employer] Submission
--- OUTSIDE RECORDS SUMMARY | 2018-09-14 15:55 | XMS REPORT ---
[...] Active for malignant neoplasm of breast Assessment Type 2 diabetes mellitus with other E11.69 Active specified complication Problem Coronary atherosclerosis of artery I25.810 Active bypass graft Medications Medication Code Code Instructions Start End Status Dosage System Date Date Nitroglycerin [facility] 00928159587 0.4 MG Active as directed Sublingual Tresiba [facility] 71768678518 200 UNIT/ML May 10, Active 26 units FlexTouch Subcutaneous 2018 daily Results No Known Results Summary Purpose [employer]ClinicalWorks Submission
--- OUTSIDE RECORDS SUMMARY | 2018-09-14 15:55 | XMS REPORT | Clinical Summary ---
:1945 Author Organization [facility] Address [address] [place] [address] Care Team Providers Name Role Phone Jacob Khan MD Primary Care Provider Allergies No Known Allergies Medications Medication Sig Dispensed Refills Start Date End Date Status clopidogrel (PLAVIX) Take 75 mg by 0 Active 75 mg tablet mouth daily. atorvastatin Take 40 mg by 0 Active (LIPITOR) 40 MG mouth daily. tablet aspirin (ECOTRIN) 81 Take 81 mg by 0 Active MG enteric coated mouth daily. tablet lisinopril Take 20 mg by 0 Active (PRINIVIL,ZESTRIL) mouth daily. [address] 0.4 mg 0 Active (NITROSTAT) 0.4 MG under the SL tablet tongue every 5 (five) minutes as needed for chest pain. calcium carbonate Take by 0 Active (CALCIUM 600 ORAL) mouth. cholecalciferol, Take by mouth 0 Active vitamin D3, (VITAMIN daily. D3 ORAL) ferrous sulfate Take 325 mg 0 Active (IRON) 325 (65 FE) by mouth MG tablet daily with breakfast. ranolazine (RANEXA) Take 500 mg 0 Active 500 MG 12 hr ER by mouth 2 tablet (two) times a day. vitamin E 400 UNIT Take 400 0 Active capsule Units by mouth daily. insulin degludec Inject 40 0 Active (TRESIBA FLEXTOUCH Units under U-200) 200 unit/mL the skin (3 mL) insulin pen daily. liraglutide (VICTOZA Inject 0.6 mg 0 Active 2-ALIE) 0.6 mg/0.1 mL under the (18 mg/3 mL) pen skin daily injector with breakfast. vitamin A 59751 UNIT Take 10,000 0 01/09/2018 Discontinued capsule Units by mouth daily. metFORMIN Take 500 mg 0 01/14/2018 Discontinued (GLUCOPHAGE) 500 mg by mouth 2 tablet (two) times a day with meals. pravastatin Take 20 mg by 0 01/14/2018 Discontinued (PRAVACHOL) 20 MG mouth tablet nightly. 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 01/09/2018 Encounters Date Type Specialty Care Team Description 01/13/2018 Anesthesia Event Cardiothoracic Surgery Ollie Gabriel MD 01/13/2018 Surgery Cardiothoracic Surgery Jayshree Torres, ARTERIOGRAM WITH MD ANGIOPLASTY, IF INDICATED 01/09/2018 - Hospital Encounter Cardiology [facility], Peripheral vascular 01/14/2018 James Tay Sr., disease (HCC) (Primary Dx) 01/09/2018 Orders Only General Internal [facility], Medicine James Tay Sr., MD after 09/13/2017 Social History Tobacco Use Types Packs/Day Years Used Date Never Assessed Sex Assigned at Date Recorded Not on file Job Start Date Occupation Industry Not on file Not on file Not on file Travel History Travel Start Travel End No recent travel history available. Last Filed Vital Signs Vital Sign Reading Time Taken Blood Pressure 150/74 01/14/2018 7:28 AM CDT Pulse 82 01/14/2018 7:28 AM CDT Temperature 36.4 C (97.5 F) 01/14/2018 7:28 AM CDT Respiratory Rate 16 01/14/2018 7:28 AM CDT Oxygen Saturation 96% 01/14/2018 7:28 AM CDT Inhaled Oxygen Concentration - - Weight 65.8 kg (145 lb 1.6 oz) 01/14/2018 5:19 AM CDT Height 162.6 cm (5' 4") 01/09/2018 1:27 PM CDT Body Mass Index 24.91 01/09/2018 1:27 PM CDT Plan of Treatment Health Maintenance Due Date Last Done Comments DIABETIC RETINAL EYE EXAM 1945 DIABETIC FOOT EXAM 11/07/1955 URINE MICROALBUMIN 11/07/1955 BREAST CANCER SCREENING 11/07/1995 COLONOSCOPY SCREENING 11/07/1995 SHINGLES VACCINES (#1) 11/07/1995 65+ PNEUMOCOCCAL VACCINE (1 of 2 - PCV13) 2010 INFLUENZA VACCINE 10/23/2018 04/06/2015 Implants Implanted Type Area Erosion Control Coordinator Device Shelf Model / Identifier Expiration Serial / Date Lot Catheter Supp Quick-Cross Str Tip 5fr 0.035in 150cm 3.1fr - [id number] Cardiovascular N/A: [id number] / Implanted: Qty: 1 on 01/13/2018 by Jayshree Torres MD [employer]plants [employer] / Catheter [employer] [place] 5fr 75cm 6x40mm 0.035in H-Pres - [id number] Cardiovascular N/A: BSC PERIPHERAL [id number] / Implanted: Qty: 1 on 01/13/2018 by Jayshree Torres MD Implants N/A INTERVENTION / VASCULAR TANNA Device Vasclr Clsr Baln Cath 10ml Lkng Syr 6fr 7fr Mynxgrip - [id number] Cardiovascular N/A: CARDINAL 09/22/2019 [id number] / Implanted: Qty: 1 on 01/13/2018 by Jayshree Torres MD Implants N/A [facility] / [id number] Procedures Procedure Name Priority Date/Time Associated Comments Diagnosis POC GLUCOSE Routine 01/14/2018 7:28 Results for this AM CDT procedure are in the results section. B NATRIURETIC PEPTIDE Routine 01/14/2018 2:24 Results for this AM CDT procedure are in the results section. POC GLUCOSE Routine 01/13/2018 8:50 Results for this PM CDT procedure are in the results section. POC GLUCOSE Routine 01/13/2018 5:57 Results for this PM CDT procedure are in the results section. POC GLUCOSE Routine 01/13/2018 4:33 Results for this PM CDT procedure are in the results section. POC GLUCOSE Routine 01/13/2018 2:57 Results for this PM CDT procedure are in the results section. ACTIVATED CLOTTING TIME Routine 01/13/2018 2:56 Results for this PM CDT procedure are in the results section. POC GLUCOSE Routine 01/13/2018 11:43 Results for this AM CDT procedure are in the results section. POC GLUCOSE Routine 01/13/2018 7:21 Results for this AM CDT procedure are in the results section. ESTIMATED GFR Routine 01/13/2018 2:44 Results for this AM CDT procedure are in the results section. BASIC METABOLIC PANEL Routine 01/13/2018 2:44 Results for this AM CDT procedure are in the results section. TYPE AND SCREEN Routine 01/13/2018 2:30 Results for this AM CDT procedure are in the results section. HC COMPLETE BLD COUNT Routine 01/13/2018 2:30 Results for this W/AUTO DIFF AM CDT procedure are in the results section. B NATRIURETIC PEPTIDE Routine 01/13/2018 2:30 Results for this AM CDT procedure are in the results section. POC GLUCOSE Routine 01/12/2018 9:59 Results for this PM CDT procedure are in the results section. MRI LUMBAR SPINE WO Routine 01/12/2018 7:38 Results for this CONTRAST PM CDT procedure are in the results section. POC GLUCOSE Routine 01/12/2018 5:35 Results for this PM CDT procedure are in the results section. POC GLUCOSE Routine 01/12/2018 1:03 Results for this PM CDT procedure are in the results section. POC GLUCOSE Routine 01/12/2018 11:34 Results for this AM CDT procedure are in the results section. POC GLUCOSE Routine 01/12/2018 7:57 Results for this AM CDT procedure are in the results section. B NATRIURETIC PEPTIDE Routine 01/12/2018 5:14 Results for this AM CDT procedure are in the results section. HC COMPLETE BLD COUNT Routine 01/12/2018 5:14 Results for this W/AUTO DIFF AM CDT procedure are in the results section. ESTIMATED GFR Routine 01/12/2018 4:00 Results for this AM CDT procedure are in the results section. BASIC METABOLIC PANEL Routine 01/12/2018 4:00 Results for this AM CDT procedure are in the results section. POC GLUCOSE Routine 01/11/2018 8:53 Results for this PM CDT procedure are in the results section. POC GLUCOSE Routine 01/11/2018 5:48 Results for this PM CDT procedure are in the results section. POC GLUCOSE Routine 01/11/2018 12:34 Results for this PM CDT procedure are in the results section. POC GLUCOSE Routine 01/11/2018 7:58 Results for this AM CDT procedure are in the results section. PARTIAL THROMBOPLASTIN Routine 01/11/2018 4:30 Results for this TIME (PTT) AM CDT procedure are in the results section. PROTHROMBIN TIME WITH Routine 01/11/2018 4:30 Results for this INR AM CDT procedure are in the results section. ESTIMATED GFR Routine 01/11/2018 4:30 Results for this AM CDT procedure are in the results section. BASIC METABOLIC PANEL Routine 01/11/2018 4:30 Results for this AM CDT procedure are in the results section. HC COMPLETE BLD COUNT Routine 01/11/2018 4:30 Results for this W/AUTO DIFF AM CDT procedure are in the results section. POC GLUCOSE Routine 01/10/2018 8:47 Results for this PM CDT procedure are in the results section. POC GLUCOSE Routine 01/10/2018 5:17 Results for this PM CDT procedure are in the results section. XR CHEST 2 VW Routine 01/10/2018 3:44 Results for this PM CDT procedure are in the results section. POC GLUCOSE Routine 01/10/2018 12:00 Results for this PM CDT procedure are in the results section. POC GLUCOSE Routine 01/10/2018 8:35 Results for this AM CDT procedure are in the results section. POC GLUCOSE Routine 01/10/2018 7:34 Results for this AM CDT procedure are in the results section. ESTIMATED GFR Routine 01/10/2018 2:47 Results for this AM CDT procedure are in the results section. T4, FREE Routine 01/10/2018 2:47 Results for this AM CDT procedure are in the results section. THYROID STIMULATING Routine 01/10/2018 2:47 Results for this HORMONE AM CDT procedure are in the results section. LIPID PANEL Routine 01/10/2018 2:47 Results for this AM CDT procedure are in the results section. BASIC METABOLIC PANEL Routine 01/10/2018 2:47 Results for this AM CDT procedure are in the results section. HC COMPLETE BLD COUNT Routine 01/10/2018 2:14 Results for this W/AUTO DIFF AM CDT procedure are in the results section. HEPATIC FUNCTION PANEL Routine 01/10/2018 12:00 Results for this AM CDT procedure are in the results section. CT ANGIOGRAM ABDOMINAL STAT 01/09/2018 10:50 Results for this AORTA AND BILATERAL PM CDT procedure are in ILIOFEMORAL RUNOFF W WO the results CONTRAST section. URINALYSIS SCREEN AND Routine 01/09/2018 10:00 Results for this MICROSCOPY, WITH REFLEX PM CDT procedure are in TO CULTURE the results section. GRAM STAIN Routine 01/09/2018 10:00 Results for this PM CDT procedure are in the results section. URINE CULTURE Routine 01/09/2018 10:00 Results for this PM CDT procedure are in the results section. ECG 12-LEAD Routine 01/09/2018 9:27 Results for this PM CDT procedure are in the results section. POC GLUCOSE Routine 01/09/2018 7:23 Results for this PM CDT procedure are in the results section. HC COMPLETE BLD COUNT Routine 01/09/2018 5:00 Results for this W/AUTO DIFF PM CDT procedure are in the results section. HEMOGLOBIN A1C Routine 01/09/2018 5:00 Results for this PM CDT procedure are in the results section. PARTIAL THROMBOPLASTIN Routine 01/09/2018 5:00 Results for this TIME (PTT) PM CDT procedure are in the results section. PROTHROMBIN TIME WITH Routine 01/09/2018 5:00 Results for this INR PM CDT procedure are in the results section. ESTIMATED GFR Routine 01/09/2018 4:44 Results for this PM CDT procedure are in the results section. BASIC METABOLIC PANEL Routine 01/09/2018 4:44 Results for this PM CDT procedure are in the results section. POC GLUCOSE Routine 01/09/2018 4:08 Results for this PM CDT procedure are in the results section. after 09/13/2017 Results POC glucose (01/14/2018 7:28 AM CDT)Only the most recent of23 resultswithin the time period is included. [facility] POC glucose 115 (H) 65 - 99 mg/dL [facility] DEPARTMENT OF Comment: PATHOLOGY AND [facility] Notified RN [facility] Meter ID: [id number] Roller Embosser: Neal Kumar Specimen Performing Organization Address City/[facility]ode Phone Number [facility] DEPARTMENT OF PATHOLOGY AND [address] [place] [phone] [facility] MEDICINE B natriuretic peptide (01/14/2018 2:24 AM CDT)Only the most recent of3 resultswithin the time period is included. [facility] BNP 19 0 - 100 pg/mL [facility] DEPARTMENT OF PATHOLOGY AND GENOMIC MEDICINE Specimen Blood Performing Organization Address City/[facility] Cent[facility]ode Phone Number [facility] DEPARTMENT OF PATHOLOGY AND [address] [place] [phone] [facility] MEDICINE Activated clotting time (01/13/2018 2:56 PM CDT) [facility] Activated clotting 272 (H) 96 - 152 sec [facility] DEPARTMENT OF time Comment: PATHOLOGY AND Meter ID: [id number] GENOMIC MEDICINE Roller Embosser ID: David Hill Specimen Performing Organization Address City/[facility] Centercode Phone Number [facility] DEPARTMENT PATHOLOGY AND [address] [place] [address] MEDICINE Estimated GFR (01/13/2018 2:44 AM CDT)Only the most recent of5 resultswithin the time period is included. Pathologist [facility] Estimated GFR 48 (A) mL/min/1.73 [facility] DEPARTMENT OF Comment: m2 PATHOLOGY AND CatergoryUnitsInterpretation GENOMIC MEDICINE G1 >=90 Normal or high G2 60-89Mildly decreased [id number] to moderately decreased [id number] to severely decreased G4 15-29Severely decreased G5 <15Kidney failure The eGFR was calculated using the Chronic Kidney Disease Epidemiology Collaboration (CKD-EPI) equation. Interpretation is based on recommendations of the National Kidney Foundation-Kidney Disease Outcomes Quality Initiative (NKF-KDOQI) published in 2014. Specimen Plasma specimen Performing Organization Address [facility] Cent[facility]ode Phone Number [facility] DEPARTMENT OF PATHOLOGY AND [address] [place] [phone] [facility] Basic metabolic panel (01/13/2018 2:44 AM CDT)Only the most recent of5 resultswithin the time period is included. Pathologist [facility] Sodium 135 135 - 148 mEq/L [facility] DEPARTMENT OF PATHOLOGY AND GENOMIC MEDICINE Potassium 4.4 3.5 - 5.0 mEq/L [facility] DEPARTMENT OF PATHOLOGY AND GENOMIC MEDICINE Chloride 102 98 - 112 mEq/L [facility] DEPARTMENT OF PATHOLOGY AND GENOMIC MEDICINE CO2 22 (L) 24 - 31 mEq/L [facility] DEPARTMENT OF PATHOLOGY AND GENOMIC MEDICINE Anion gap 11@ANIO 7 - 15 mEq/L [facility] DEPARTMENT OF PATHOLOGY AND GENOMIC MEDICINE BUN 20 8 - 23 mg/dL [facility] DEPARTMENT OF PATHOLOGY AND GENOMIC MEDICINE Creatinine 1.14 (H) 0.50 - 0.90 mg/dL [facility] DEPARTMENT OF PATHOLOGY AND GENOMIC MEDICINE Glucose 147 (H) 65 - 99 mg/dL [facility] DEPARTMENT OF PATHOLOGY AND GENOMIC MEDICINE Calcium 8.8 8.8 - 10.2 mg/dL [facility] DEPARTMENT OF PATHOLOGY AND GENOMIC MEDICINE Specimen Plasma specimen Performing Organization Address City/[facility]/Zipcode Phone Number [facility] DEPARTMENT OF PATHOLOGY AND [address] [place] [address] GENOMIC MEDICINE CBC with platelet and differential (01/13/2018 2:30 AM CDT)Only the most recent of5 resultswithin the time period is included. WBC 7.19 4.50 - 11.00 [facility] DEPARTMENT OF k/uL PATHOLOGY AND GENOMIC MEDICINE RBC 4.13 (L) 4.20 - 5.50 [facility] DEPARTMENT OF m/uL PATHOLOGY AND GENOMIC MEDICINE HGB 11.3 (L) 12.0 - 16.0 [facility] DEPARTMENT OF g/dL PATHOLOGY AND GENOMIC MEDICINE HCT 35.2 (L) 37.0 - 47.0 % [facility] DEPARTMENT OF PATHOLOGY AND GENOMIC MEDICINE MCV 85.2 82.0 - 100.0 [facility] DEPARTMENT OF fL PATHOLOGY AND GENOMIC MEDICINE MCH 27.4 27.0 - 34.0 [facility] DEPARTMENT OF PATHOLOGY AND GENOMIC MEDICINE MCHC 32.1 31.0 - 37.0 [facility] DEPARTMENT OF g/dL PATHOLOGY AND GENOMIC MEDICINE RDW - SD 45.1 37.0 - 55.0 [facility] DEPARTMENT OF fL PATHOLOGY AND GENOMIC MEDICINE MPV 11.8 8.8 - 13.2 [facility] DEPARTMENT OF PATHOLOGY AND GENOMIC MEDICINE Platelet count 264 150 - 400 [facility] DEPARTMENT OF k/uL PATHOLOGY AND GENOMIC MEDICINE Nucleated RBC 0.00 /100 WBC [facility] DEPARTMENT OF PATHOLOGY AND GENOMIC MEDICINE Neutrophils 45.4 39.0 - 69.0 % [facility] DEPARTMENT OF PATHOLOGY AND GENOMIC MEDICINE Lymphocytes 43.1 25.0 - 45.0 % [facility] DEPARTMENT OF PATHOLOGY AND GENOMIC MEDICINE Monocytes 9.6 0.0 - 10.0 % [facility] DEPARTMENT OF PATHOLOGY AND GENOMIC MEDICINE Eosinophils 1.5 0.0 - 5.0 % [facility] DEPARTMENT OF PATHOLOGY AND GENOMIC MEDICINE Basophils 0.3 0.0 - 1.0 % [facility] DEPARTMENT OF PATHOLOGY AND GENOMIC MEDICINE Immature granulocytes 0.1Comment: 0.0 - 1.0 % [facility] DEPARTMENT OF "Immature PATHOLOGY AND granulocytes" GENOMIC MEDICINE (promyelocytes , myelocytes, metamyelocytes ) Specimen Blood Performing Organization Address City/State/Zipcode Phone Number [facility] DEPARTMENT OF PATHOLOGY AND [address] [place] [address] GENOMIC MEDICINE Type and screen (01/13/2018 2:30 AM CDT) ABO grouping O [facility] DEPARTMENT OF PATHOLOGY AND GENOMIC MEDICINE Rh type POS [facility] DEPARTMENT OF PATHOLOGY AND GENOMIC MEDICINE Antibody screen (gel) NEG [facility] DEPARTMENT OF PATHOLOGY AND GENOMIC MEDICINE Specimen Blood Performing Organization Address City/State/Zipcode Phone Number [facility] DEPARTMENT OF PATHOLOGY AND [address] [place] [address] GENOMIC MEDICINE MRI Lumbar Spine Wo Contrast (01/12/2018 7:38 PM CDT) Specimen Narrative Performed At EXAMINATION:MRI LUMBAR SPINE WO CONTRAST [facility] CLINICAL HISTORY:Back paincauda equina syndrome suspected COMPARISON: None. FINDINGS: Noncontrast MRI of the lumbar spine is interpreted. The lowest fully formed disc space is designated L5-S1. Conus terminates in a normal position and is normal in signal intensity. Bone marrow signal is normal. L1-2: Mild bilateral facet arthrosis. L2-3: Mild bilateral facet arthrosis. L3-4: Mild bilateral facet arthrosis. L4-5: Mild disc degenerative changes. Minimal disc bulge. Slight grade 1 anterolisthesis. Prominent bilateral facet arthrosis. Moderate canal stenosis, most pronounced in lateral recesses with contact on the traversing L5 nerve roots. Mild bilateral foraminal narrowing. L5-S1: Moderate disc degenerative changes. Disc bulge. Mild grade 1 anterolisthesis. Mild bilateral facet arthrosis. Moderate lateral recess stenosis with contact on the traversing S1 nerve roots. Moderate right and mild left foraminal stenosis. The paraspinous soft tissues are unremarkable. IMPRESSION: Multifactorial moderate canal stenosis at L4-5, most pronounced in the lateral recesses with contact on the traversing L5 nerve roots. Moderate lateral recess stenosis at L5-S1 with contact on the traversing S1 nerve roots. [facility]-[id number] Procedure Note Interface, Radiology Results Incoming - 01/12/2018 9:13 PM CDT EXAMINATION: MRI LUMBAR SPINE WO CONTRAST CLINICAL HISTORY: Back pain cauda equina syndrome suspected COMPARISON: None. FINDINGS: Noncontrast MRI of the lumbar spine is interpreted. The lowest fully formed disc space is designated L5-S1. Conus terminates in a normal position and is normal in signal intensity. Bone marrow signal is normal. L1-2: Mild bilateral facet arthrosis. L2-3: Mild bilateral facet arthrosis. L3-4: Mild bilateral facet arthrosis. L4-5: Mild disc degenerative changes. Minimal disc bulge. Slight grade 1 anterolisthesis. Prominent bilateral facet arthrosis. Moderate canal stenosis, most pronounced in lateral recesses with contact on the traversing L5 nerve roots. Mild bilateral foraminal narrowing. L5-S1: Moderate disc degenerative changes. Disc bulge. Mild grade 1 anterolisthesis. Mild bilateral facet arthrosis. Moderate lateral recess stenosis with contact on the traversing S1 nerve roots. Moderate right and mild left foraminal stenosis. The paraspinous soft tissues are unremarkable. IMPRESSION: Multifactorial moderate canal stenosis at L4-5, most pronounced in the lateral recesses with contact on the traversing L5 nerve roots. Moderate lateral recess stenosis at L5-S1 with contact on the traversing S1 nerve roots. [facility]-[id number] Performing Organization Address City/[facility]/Zipcode Phone Number [facility] [address] [place] [phone] Partial thromboplastin time, activated (01/11/2018 4:30 AM CDT)Only the most recent of2 resultswithin the time period is included. PTT 31.8 23.0 - 36.0 [facility] DEPARTMENT OF Comment: sec PATHOLOGY AND PTT therapeutic range for unfractionated heparin is [facility] MEDICINE 61.0-112.0 seconds which corresponds to Anti-Xa 0.3-0.7 U/ml. Specimen Blood Performing Organization Address City/[facility] Centercotn Phone Number [facility] DEPARTMENT OF PATHOLOGY AND [address] [place] [phone] [facility] Prothrombin time with INR (01/11/2018 4:30 AM CDT)Only the most recent of2 resultswithin the time period is included. Prothrombin time 16.1 (H) 12.0 - 15.0 [facility] DEPARTMENT OF sec PATHOLOGY AND GENOMIC MEDICINE INR 1.3 [facility] DEPARTMENT OF Comment: PATHOLOGY AND The International Normalized Ratio (INR) is a therapeutic GENOMIC MEDICINE monitoring tool for patients who are stable on oral anticoagulant therapy. An INR of 2.0-3.0 is suggested for deep vein thrombosis/pulmonary embolism. Specimen Blood Performing Organization Address City/[facility] Centercode Phone Number [facility] DEPARTMENT OF PATHOLOGY AND [address] [place] [phone] GENOMIC MEDICINE XR Chest 2 Vw (01/10/2018 3:44 PM CDT) Specimen Narrative Performed At EXAMINATION:XR CHEST 2 VW HM [facility] CLINICAL HISTORY:Shortness of breath COMPARISON:CTA abdomen from 01/09/2018 IMPRESSION: Sternotomy wires and postoperative changes from coronary bypass are present. Cardiac silhouette is normal in size. The aorta is minimally atherosclerotic. There is a small nodular opacity in the periphery of the left upper lobe. CT scan of the chest is recommended for further evaluation. No focal consolidations are present. There is no pulmonary edema. No pleural effusion or pneumothorax. There are no fractures or suspicious osseous lesions. Regional skeletal structures are osteopenic. Patient is status post cholecystectomy. I personally reviewed the images and the resident's findings and agree with the final report. [facility]-[id number] Procedure Note Hm Interface, Radiology Results Incoming - 01/10/2018 4:36 PM CDT EXAMINATION: XR CHEST 2 VW CLINICAL HISTORY: Shortness of breath COMPARISON: CTA abdomen from 01/09/2018 IMPRESSION: Sternotomy wires and postoperative changes from coronary bypass are present. Cardiac silhouette is normal in size. The aorta is minimally atherosclerotic. There is a small nodular opacity in the periphery of the left upper lobe. CT scan of the chest is recommended for further evaluation. No focal consolidations are present. There is no pulmonary edema. No pleural effusion or pneumothorax. There are no fractures or suspicious osseous lesions. Regional skeletal structures are osteopenic. Patient is status post cholecystectomy. I personally reviewed the images and the resident's findings and agree with the final report. [facility]-[id number] Performing Organization Address City/[facility]/Zipcode Phone Number [facility] [address] [place] [phone] Thyroid stimulating hormone (01/10/2018 2:47 AM CDT) TSH 1.55 0.27 - 4.20 uIU/mL [facility] DEPARTMENT OF PATHOLOGY AND GENOMIC MEDICINE Specimen Plasma specimen Performing Organization Address City/[facility]/Zipcode Phone Number [facility] DEPARTMENT OF PATHOLOGY AND [address] [place] [phone] GENOMIC MEDICINE T4, free (01/10/2018 2:47 AM CDT) T4, free 1.1 0.9 - 1.7 ng/dL [facility] DEPARTMENT OF PATHOLOGY AND GENOMIC MEDICINE Specimen Plasma specimen Performing Organization Address City/[facility]/Zipcode Phone Number [facility] DEPARTMENT OF PATHOLOGY AND [address] [place] [phone] GENOMIC MEDICINE Lipid panel (01/10/2018 2:47 AM CDT) Cholesterol 106 <200 mg/dL [facility] DEPARTMENT OF PATHOLOGY AND GENOMIC MEDICINE Triglycerides 114 <150 mg/dL [facility] DEPARTMENT OF PATHOLOGY AND GENOMIC MEDICINE HDL cholesterol 51 >40 mg/dL [facility] DEPARTMENT OF PATHOLOGY AND GENOMIC MEDICINE LDL cholesterol 43Comment: Result <100 mg/dL [facility] DEPARTMENT obtained by direct OF PATHOLOGY AND LDL measurement GENOMIC MEDICINE Lipid panel SeeBelow [facility] DEPARTMENT interpretation Comment: OF PATHOLOGY AND Total Cholesterol (mg/dL) GENOMIC MEDICINE <200 Desirable 175-560Cpywnzfcgr-ztyx >=240High Triglycerides (mg/dL) <150 Normal 279-152Ziprepqnmo-cizf 200-499High >=500Very high HDL Cholesterol (mg/dL) <40Low (male) <40Low (female) LDL Cholesterol (mg/dL) <100 Optimal 100-129Near or above optimal 455-848Gwwbrjegsm-nfjp 160-189High >=190Very high Risk Catergories that modify LDL goals. Risk CatergoriesLDL goal (mg/dL) CHD and CHD risk equivalent<100 (10-year risk >20%) Multiple (2+) risk factors <130 (10-year risk=<20%) 0-1 risk factors <160 (<10-year risk) Defining levels of lipids in metabolic syndrome Triglycerides>=150 mg/dL HDL Cholesterol Men<40 mg/dL Women<40 mg/dL Non-HDL cholesterol is a second target for therapy in persons with high triglycerides (>=200 mg/dL) Specimen Plasma specimen Performing Organization Address City/State/Zipcode Phone Number [facility] DEPARTMENT OF PATHOLOGY AND [address] [place] [address] [facility] Hepatic function panel (01/10/2018 12:00 AM CDT) Albumin 3.1 (L) 3.5 - 5.0 g/dL [facility] DEPARTMENT OF PATHOLOGY AND GENOMIC MEDICINE Total bilirubin 0.4 0.0 - 1.2 [facility] DEPARTMENT OF mg/dL PATHOLOGY AND GENOMIC MEDICINE Bilirubin direct <0.2 0.0 - 0.3 [facility] DEPARTMENT OF mg/dL PATHOLOGY AND GENOMIC MEDICINE Alkaline phosphatase 69 35 - 104 U/L [facility] DEPARTMENT OF PATHOLOGY AND GENOMIC MEDICINE Protein 7.1 6.3 - 8.3 g/dL [facility] DEPARTMENT OF Comment: PATHOLOGY AND 4.6-7.0 g/dL GENOMIC MEDICINE 1 week 4.4-7.6 g/dL 7 months-1year5.1-7.3 g/dL 1-2 years5.6-7.5 g/dL >3 years6.0-8.0 g/dL 18-150 6.3-8.3 g/dL ALT 8 5 - 50 U/L [facility] DEPARTMENT OF PATHOLOGY AND GENOMIC MEDICINE AST 14 10 - 35 U/L [facility] DEPARTMENT OF PATHOLOGY AND GENOMIC MEDICINE Specimen Plasma specimen Performing Organization Address City/State/Zipcode Phone Number [facility] DEPARTMENT OF PATHOLOGY AND [address] [place] [address] [facility] CTA Abdominal Aorta And Bilateral Iliofemoral Runoff W Wo Contrast (01/09/2018 10:50 PM CDT) Specimen Narrative Performed At EXAMINATION:CT ANGIOGRAM ABDOMINAL AORTA AND BILATERAL ILIOFEMORAL HM RADIANT RUNOFF W WO CONTRAST CLINICAL HISTORY:peripheral arterial disease TECHNIQUE: Multiple CT angiographic images of the abdomen, pelvis, and bilateral lower extremities were obtained during intravenous administration of iodinated contrast. Multiple computerized reformatted images as well as 3-D volume rendered images were also obtained. CT imaging was performed with iterative reconstruction technique and/or automated exposure control to reduce radiation dose. COMPARISON:None. 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 Mild atherosclerotic plaque and calcification is seen of the aorta throughout its course. Distal descending thoracic aorta measures 2.4 cm. Aorta at the diaphragmatic hiatus measures 2.4 cm. Suprarenal abdominal aorta measures 2.3 cm. Infrarenal abdominal aorta measures 1.6 cm. No aortic aneurysm or dissection is seen. Mild atherosclerotic calcification is seen at the origin of the celiac artery without significant stenosis. Common hepatic artery and splenic artery are normal. Some mild atherosclerotic plaque and calcification is seen of superior mesenteric artery, without stenosis. The major branches are normal. There is mild atherosclerotic plaque at the origin of the inferior mesenteric artery. There is moderate atherosclerotic plaque and calcification of the origin of the bilateral renal arteries. Stenosis is less than 50% stenosis on the right and up to 50% stenosis on the left. Bilateral lower extremity runoff: Right lower extremity: Mild atherosclerotic calcification is seen of the right common iliac artery and right external iliac artery, without significant stenosis. Right external iliac artery is stented; the stented portion is patent. Right common femoral artery is unremarkable, with postoperative changes seen. There is severe stenosis of the origin of the right femoral artery with up to 90% stenosis. Just beyond this, the right femoral artery is stented to the distal portion. Some minimal intimal thickening is seen of the stent distally with less than 50% stenosis. The stent is otherwise patent. Popliteal artery demonstrates some atherosclerotic plaque and calcification of the origin with up to 50% stenosis. Severe atherosclerotic calcification is seen of the distal popliteal artery and popliteal trifurcation limiting evaluation for patency. Anterior tibial and peroneal artery opacify in the mid and distal portion; however, it is unclear if these vessels are patent distally as no distal contrast opacification is seen. This could be secondary to occlusion or slow flow. The posterior tibial artery is occluded beyond its origin. Left lower extremity: Mild atherosclerotic calcification is seen of the left common iliac artery and proximal left external iliac artery without significant stenosis. Postoperative appearance of left common femoral artery. Stented left femoral artery is occluded. A common femoral-popliteal graft is occluded. Contrast opacification is seen of the profunda femoris and collaterals vessels. Reconstitution of the popliteal artery is seen. Runoff to the foot is seen via the peroneal artery and posterior tibial artery. Mid and distal anterior tibial artery are occluded. Abdomen/pelvis: Subsegmental atelectasis is seen of the lung bases. Some areas of air trapping are seen. A 3 mm nodule is seen in the right middle lobe. Coronary artery calcifications are seen. Patient is status post cholecystectomy. Liver, spleen, pancreas, adrenal glands are normal. Nonobstructive calculus is seen of interpolar region of the right kidney. Punctate nonobstructive calculi are seen of collecting system of the left kidney. No hydronephrosis or hydroureter. The bladder is normal. No free intraperitoneal fluid or air. A few diverticula are seen without diverticulitis. The appendix is normal. No gastrointestinal tract obstruction. No acute osseous abnormalities. Well-corticated nonaggressive sclerotic focus in the distal diaphysis of the left tibia is suggestive of enchondroma. 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 Multifocal atherosclerotic disease of the abdominal and bilateral lower extremity arterial vasculature as detailed above. Severe stenosis of the origin of the right femoral artery is seen with up to 90% stenosis. Just distal, the stented femoral artery is patent. No opacification of distal right anterior tibial and peroneal artery was seen; it is unclear if this is due to occlusion or slow flow. Posterior tibial artery is occluded beyond its origin. The stented ambler left femoral artery is occluded. Left common femoral-popliteal graft is occluded. Reconstitution of the left popliteal artery is seen via collaterals, and runoff to the foot is seen via the peroneal artery and posterior tibial artery. Nonobstructive calculi are seen of the collecting system of the kidneys. [facility]-[id number] Procedure Note [facility], Radiology Results Incoming - 01/09/2018 11:33 PM CDT EXAMINATION: CT ANGIOGRAM ABDOMINAL AORTA AND BILATERAL ILIOFEMORAL RUNOFF W WO CONTRAST CLINICAL HISTORY: peripheral arterial disease TECHNIQUE: Multiple CT angiographic images of the abdomen, pelvis, and bilateral lower extremities were obtained during intravenous administration of iodinated contrast. Multiple computerized reformatted images as well as 3-D volume rendered images were also obtained. CT imaging was performed with iterative reconstruction technique and/or automated exposure control to reduce radiation dose. COMPARISON: None. 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 Mild atherosclerotic plaque and calcification is seen of the aorta throughout its course. Distal descending thoracic aorta measures 2.4 cm. Aorta at the diaphragmatic hiatus measures 2.4 cm. Suprarenal abdominal aorta measures 2.3 cm. Infrarenal abdominal aorta measures 1.6 cm. No aortic aneurysm or dissection is seen. Mild atherosclerotic calcification is seen at the origin of the celiac artery without significant stenosis. Common hepatic artery and splenic artery are normal. Some mild atherosclerotic plaque and calcification is seen of superior mesenteric artery, without stenosis. The major branches are normal. There is mild atherosclerotic plaque at the origin of the inferior mesenteric artery. There is moderate atherosclerotic plaque and calcification of the origin of the bilateral renal arteries. Stenosis is less than 50% stenosis on the right and up to 50% stenosis on the left. Bilateral lower extremity runoff: Right lower extremity: Mild atherosclerotic calcification is seen of the right common iliac artery and right external iliac artery, without significant stenosis. Right external iliac artery is stented; the stented portion is patent. Right common femoral artery is unremarkable, with postoperative changes seen. There is severe stenosis of the origin of the right femoral artery with up to 90% stenosis. Just beyond this, the right femoral artery is stented to the distal portion. Some minimal intimal thickening is seen of the stent distally with less than 50% stenosis. The stent is otherwise patent. Popliteal artery demonstrates some atherosclerotic plaque and calcification of the origin with up to 50% stenosis. Severe atherosclerotic calcification is seen of the distal popliteal artery and popliteal trifurcation limiting evaluation for patency. Anterior tibial and peroneal artery opacify in the mid and distal portion; however, it is unclear if these vessels are patent distally as no distal contrast opacification is seen. This could be secondary to occlusion or slow flow. The posterior tibial artery is occluded beyond its origin. Left lower extremity: Mild atherosclerotic calcification is seen of the left common iliac artery and proximal left external iliac artery without significant stenosis. Postoperative appearance of left common femoral artery. Stented left femoral artery is occluded. A common femoral-popliteal graft is occluded. Contrast opacification is seen of the profunda femoris and collaterals vessels. Reconstitution of the popliteal artery is seen. Runoff to the foot is seen via the peroneal artery and posterior tibial artery. Mid and distal anterior tibial artery are occluded. Abdomen/pelvis: Subsegmental atelectasis is seen of the lung bases. Some areas of air trapping are seen. A 3 mm nodule is seen in the right middle lobe. Coronary artery calcifications are seen. Patient is status post cholecystectomy. Liver, spleen, pancreas, adrenal glands are normal. Nonobstructive calculus is seen of interpolar region of the right kidney. Punctate nonobstructive calculi are seen of collecting system of the left kidney. No hydronephrosis or hydroureter. The bladder is normal. No free intraperitoneal fluid or air. A few diverticula are seen without diverticulitis. The appendix is normal. No gastrointestinal tract obstruction. No acute osseous abnormalities. Well-corticated nonaggressive sclerotic focus in the distal diaphysis of the left tibia is suggestive of enchondroma. 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 Multifocal atherosclerotic disease of the abdominal and bilateral lower extremity arterial vasculature as detailed above. Severe stenosis of the origin of the right femoral artery is seen with up to 90% stenosis. Just distal, the stented femoral artery is patent. No opacification of distal right anterior tibial and peroneal artery was seen; it is unclear if this is due to occlusion or slow flow. Posterior tibial artery is occluded beyond its origin. The stented ambler left femoral artery is occluded. Left common femoral- popliteal graft is occluded. Reconstitution of the left popliteal artery is seen via collaterals, and runoff to the foot is seen via the peroneal artery and posterior tibial artery. Nonobstructive calculi are seen of the collecting system of the kidneys. [facility]-[id number] Performing Organization Address City/State/Zipcode Phone Number [facility] [address] [place] [address] Urinalysis screen and microscopy, with reflex to culture (01/09/2018 10:00 PM CDT) Specimen site Clean catch [facility] DEPARTMENT OF PATHOLOGY AND GENOMIC MEDICINE Color, UA Colorless [facility] DEPARTMENT OF PATHOLOGY AND GENOMIC MEDICINE Appearance, UA Clear [facility] DEPARTMENT OF PATHOLOGY AND GENOMIC MEDICINE Specific gravity, 1.002 1.001 - 1.035 [facility] DEPARTMENT OF UA PATHOLOGY AND GENOMIC MEDICINE pH, UA 7.0 5.0 - 8.5 [facility] DEPARTMENT OF PATHOLOGY AND GENOMIC MEDICINE Protein, UA Negative Negative [facility] DEPARTMENT OF PATHOLOGY AND GENOMIC MEDICINE Glucose, UA Negative Negative [facility] DEPARTMENT OF PATHOLOGY AND GENOMIC MEDICINE Ketones, UA Negative Negative [facility] DEPARTMENT OF PATHOLOGY AND GENOMIC MEDICINE Bilirubin, UA Negative Negative [facility] DEPARTMENT OF PATHOLOGY AND GENOMIC MEDICINE Blood, UA Negative Negative [facility] DEPARTMENT OF PATHOLOGY AND GENOMIC MEDICINE Nitrite, UA Negative Negative [facility] DEPARTMENT OF PATHOLOGY AND GENOMIC MEDICINE Urobilinogen, UA <2.0 <2.0 [facility] DEPARTMENT OF PATHOLOGY AND GENOMIC MEDICINE Leukocyte esterase, Trace (A) Negative [facility] DEPARTMENT OF UA PATHOLOGY AND GENOMIC MEDICINE WBC, UA 4 0 - 4 /HPF [facility] DEPARTMENT OF PATHOLOGY AND GENOMIC MEDICINE RBC, UA None seen 0 - 5 /HPF [facility] DEPARTMENT OF PATHOLOGY AND GENOMIC MEDICINE Bacteria, UA None seen None seen [facility] DEPARTMENT OF PATHOLOGY AND GENOMIC MEDICINE Yeast, UA None seen [facility] DEPARTMENT OF PATHOLOGY AND GENOMIC MEDICINE Yeast with None seen [facility] DEPARTMENT OF pseudohyphae, UA PATHOLOGY AND GENOMIC MEDICINE Specimen Urine Performing Organization Address City/[facility] Phone Number [facility] DEPARTMENT OF PATHOLOGY AND [address] [place] [phone] GENOMIC MEDICINE Gram stain (01/09/2018 10:00 PM CDT) Gram stain result No WBC's or organisms seen. [facility] DEPARTMENT OF Comment: PATHOLOGY AND Specimen Information GENOMIC MEDICINE Specimen Source: Urine Specimen Site: Clean catch Specimen Urine Performing Organization Address City/[facility] Phone Number [facility] DEPARTMENT OF PATHOLOGY AND [address] [place] [phone] [facility] MEDICINE Urine culture (01/09/2018 10:00 PM CDT) Urine culture Mixed Gram positive yohana [facility] DEPARTMENT OF isolate 10-2 cfu/ml PATHOLOGY AND (A) GENOMIC MEDICINE Comment: Specimen Information Specimen Source: Urine Specimen Site: Clean catch Specimen Urine Performing Organization Address [facility] Phone Number [facility] DEPARTMENT OF PATHOLOGY AND [address] [place] [phone] [facility] MEDICINE ECG 12 lead (01/09/2018 9:27 PM CDT) Ventricular rate 75 [facility] Atrial rate 75 [facility] AZ interval 156 [facility] QRSD interval 98 [facility] QT interval 398 [facility] QTC interval 444 [facility] P axis 1 60 [facility] QRS axis 1 28 [facility] T wave axis -29 [facility] EKG impression Normal sinus [facility] MUSE rhythm-Possible Inferior infarct (cited on or before 10-DEC-2012)-Abnormal ECG- Specimen Performing Organization Address [facility] Centercotn Phone Number [facility] MUSE [address] [place] [address] Hemoglobin A1c (01/09/2018 5:00 PM CDT) Hemoglobin A1C 5.5 4.0 - 5.6 % [facility] DEPARTMENT OF Comment: PATHOLOGY AND HbA1c cutoffs for diagnosing diabetes: GENOMIC MEDICINE 4.0% - 5.6%=normal 5.7% - 6.4%=increased risk for diabetes (prediabetes) >=6.5%=diabetes Goals for glycemic control (ADA 2016) < 7.0%Target for non adults with diabetes. More or less stringent targets may be appropriate for individual patients. <7.5% Target for Children and adolescents with type 1 diabetes. Specimen Blood Performing Organization Address City/State/Zipcode Phone Number [facility] DEPARTMENT OF PATHOLOGY AND [address] [place] [address] GENOMIC MEDICINE after 09/13/2017 Advance Directives Patient has advance care planning documents, and code status on file. For more information, please contact:Ruslan Luna[address] [place] [address] Code Status Date Activated Date Inactivated Comments Full Code 01/09/2018 4:44 PM 01/14/2018 2:20 PM Code Status decision reached by: Patient
--- OUTSIDE RECORDS SUMMARY | 2018-09-14 15:55 | XMS REPORT ---
:1945 Author Organization [employer] Care Team Providers Name Role Phone Jacob Khan Provider Role Unavailable Allergies No Known Allergies Problems Problem Type Condition Code Onset Dates Condition Status Problem Stress incontinence N39.3 Active Problem Hyperlipidemia E78.5 Active Problem Hypertension I10 Active Problem Respiratory tract congestion with R05 Active cough Problem Encounter for screening mammogram Z12.31 Active for malignant neoplasm of breast Problem Coronary atherosclerosis of artery I25.810 Active bypass graft Problem Primary insomnia F51.01 Active Problem Chronic hepatitis C without hepatic B18.2 Active coma Problem Chronic renal failure, stage 2 N18.2 Active (mild) Problem Esophagitis, unspecified K20.9 Active Problem Osteoarthritis of knees, bilateral M17.0 Active Problem Hepatitis C carrier Z22.52 Active Problem Type 2 diabetes mellitus with other E11.69 Active specified complication Medications Medication Code Code Instructions Start End Status Dosage System Date Date Atorvastatin [facility] 00144072542 40 MG Orally Active 1 tablet Calcium Once a day Nitroglycerin [facility] 73655658754 0.4 MG Inactive as Sublingual directed Nitrostat [facility] 72044750396 0.4 MG Mar 19, Active as Sublingual 2018 directed Results No Known Results Summary Purpose eClinicalWorks Submission
--- OUTSIDE RECORDS SUMMARY | 2018-09-14 15:55 | XMS REPORT ---
[...] mellitus with other E11.69 Active specified complication Assessment Chronic hepatitis C without hepatic B18.2 Active coma Assessment Type 2 diabetes mellitus with other E11.69 Active specified complication Assessment Chronic renal failure, stage 2 N18.2 Active (mild) Assessment Coronary atherosclerosis of artery I25.810 Active bypass graft Problem Respiratory tract congestion with R05 Active cough Assessment Hypertension I10 Active Problem Encounter for screening mammogram Z12.31 Active for malignant neoplasm of breast Assessment Hyperlipidemia E78.5 Active Problem Coronary atherosclerosis of artery I25.810 Active bypass graft Medications Medication Code Code Instructions Start End Status Dosage System Date Date Pantoprazole [facility] 01618166488 20 MG Oral Active not Sodium defined NovoTwist [facility] 77014080488 32G X 5 MM Active not defined Atorvastatin [facility] 16991709624 40 MG Active TAKE 1 Calcium TABLET ONCE DAILY INTHE EVENING Nitroglycerin ND 07345907328 0.4 MG May Active as Sublingual as 2017 directed needed for chest pain Metformin HCl ND 13128531105 500 MG Oral Active 1 tablet twice a day with a meal Ranexa [facility] 61758110172 500 MG Oral Active not defined Mavyret [facility] 57535196649 100-40 MG Orally Active 3 tablets Once a day Lisinopril [facility] 08615351714 20 MG Orally Active 1 tablet Once a day Flonase [facility] 53858582034 50 MCG/ACT May 10, Active 1 spray in Nasally Once a 2017 each day nostril Restasis [facility] 16941418193 0.05 % Active 1 drop Ophthalmic Twice into a day affected eye Nitroglycerin [facility] 67483308862 0.4 MG Active not Sublingual defined Zolpidem [facility] 68729904457 5 MG Orally Once August 12, Active 1 tablet Tartrate a day 2018 at bedtime Tresiba [facility] 08976097767 200 UNIT/ML May 10, Active 26 units FlexTouch Subcutaneous 2018 daily Victoza [facility] 36755622831 18 MG/3ML Active 1.8 units Subcutaneous Carvedilol [facility] 96347347212 12.5 MG Oral Active not defined Clopidogrel [facility] 82397707983 75 MG Oral Active not Bisulfate defined Prevnar 13 [facility] 93332769255 - Intramuscular Active not defined Results No Known Results Summary Purpose eClinicalWorks Submission
--- OUTSIDE RECORDS SUMMARY | 2018-09-14 15:56 | XMS REPORT ---
[...] with other E11.69 Active specified complication Assessment Osteoarthritis of knees, bilateral M17.0 Active Problem Respiratory tract congestion with R05 Active cough Assessment Chronic renal failure, stage 2 N18.2 Active (mild) Problem Encounter for screening mammogram Z12.31 Active for malignant neoplasm of breast Assessment Type 2 diabetes mellitus with other E11.69 Active specified complication Problem Coronary atherosclerosis of artery I25.810 Active bypass graft Medications Medication Code Code Instructions Start End Status Dosage System Date Date Pantoprazole [facility] 33594719516 20 MG Oral Once Active 1 tablet Sodium a day Carvedilol [facility] 34703254942 12.5 MG Orally Active 1 tablet twice a day Prevnar [address] [facility] 46081534675 - Intramuscular Active not defined Metformin HCl [facility] 12408684860 500 MG Oral Active 1 tablet twice a day with a meal Zolpidem ND 06996064739 5 MG Orally Once August 12, Active 1 tablet Tartrate a day 2018 at bedtime Tresiba [facility] [address]-44 200 UNIT/ML May 10, Active 36 units FlexTouch Subcutaneous [address] [facility] 02693949939 32G X 5 MM Active not defined Victoza [facility] 14228846275 18 MG/3ML Active 1.2 mg Subcutaneous once a day Restasis [facility] 63372829418 0.05 % Active 1 drop Ophthalmic Twice into a day affected eye Clopidogrel [facility] 36196397858 75 MG Orally Active 1 tablet Bisulfate Once a day Atorvastatin [facility] 87141994275 40 MG Orally Active 1 tablet Calcium Once a day Fluticasone [facility] 09971830513 50 MCG/ACT Mar 03, Active 1 spray in Propionate Nasally Once a 2017 each day nostril Nitrostat [facility] 92830469605 0.4 MG Mar 19, Active as Sublingual daily 2017 directed as needed Mavyret [facility] 85690770953 100-40 MG Orally Active 3 tablets Once a day Flonase [facility] 79940088566 50 MCG/ACT May 10, Active 1 spray in Nasally Once a 2017 each day nostril Lisinopril [facility] 57385606190 20 MG Orally Active 1 tablet Once a day Ranexa [facility] 43342028323 500 MG Orally Active 1 tablet Twice a day Results No Known Results Summary Purpose eClinicalWorks Submission
--- OUTSIDE RECORDS SUMMARY | 2018-09-14 15:56 | XMS REPORT ---
[...] Assessment Osteoarthritis of knees, bilateral M17.0 Active Assessment Type 2 diabetes mellitus with other E11.69 Active specified complication Problem Respiratory tract congestion with R05 Active cough Assessment Hyperlipidemia E78.5 Active Problem Encounter for screening mammogram Z12.31 Active for malignant neoplasm of breast Assessment Coronary atherosclerosis of artery I25.810 Active bypass graft Problem Coronary atherosclerosis of artery I25.810 Active bypass graft Medications Medication Code Code Instructions Start End Status Dosage System Date Date Pantoprazole [facility] 43028728387 20 MG Oral Once Active 1 tablet Sodium a day Clopidogrel [facility] 76497765282 75 MG Orally Active 1 tablet Bisulfate Once a day Metformin HCl [facility] 39354066729 500 MG Oral Active 1 tablet twice a day with a meal Flonase ND 42216374466 50 MCG/ACT May 10, Active 1 spray in Nasally Once a 2017 each day nostril NovoTwist [facility] 63162116471 32G X 5 MM Active not defined Zolpidem ND 15412667345 5 MG Orally Once August 12, Active 1 tablet at Tartrate a day 2018 bedtime Lisinopril ND 73655415942 20 MG Orally Active 1 tablet Once a day Atorvastatin [facility] 27472168833 40 MG Orally Active 1 tablet Calcium Once a day Carvedilol [facility] 39873995776 12.5 MG Orally Active 1 tablet twice a day Prevnar 13 [facility] 11787943571 - Intramuscular Active not defined Nitrostat [facility] 02314225343 0.4 MG Mar 19, Active as directed Sublingual daily 2018 as needed Tresiba [facility] 21233218146 200 UNIT/ML May 10, Active 16 units FlexTouch Subcutaneous 2018 daily Mavyret [facility] 08511933304 100-40 MG Orally Active 3 tablets Once a day Victoza [facility] 14024838761 18 MG/3ML Active 1.2 mg Subcutaneous once a day Restasis [facility] 32556596566 0.05 % Active 1 drop into Ophthalmic Twice affected a day eye Ranexa [facility] 59626068664 500 MG Orally Active 1 tablet Twice a day Results No Known Results Summary Purpose eClinicalWorks Submission
--- OUTSIDE RECORDS SUMMARY | 2018-09-14 15:56 | XMS REPORT ---
[...] Start End Status Dosage System Date Date Carvedilol [facility] 37192084240 12.5 MG Orally Active 1 tablet twice a day Clopidogrel [facility] 40564491130 75 MG Orally Active 1 tablet Bisulfate Once a day Ranexa [facility] 50695214336 500 MG Orally Active 1 tablet Twice a day Results No Known Results Summary Purpose eClinicalWorks Submission
--- OUTSIDE RECORDS SUMMARY | 2018-09-14 15:56 | XMS REPORT ---
[...] tract congestion with R05 Active cough Assessment Respiratory tract congestion with R05 Active cough Problem Encounter for screening mammogram Z12.31 Active for malignant neoplasm of breast Assessment Hypertension I10 Active Problem Coronary atherosclerosis of artery I25.810 Active bypass graft Medications Medication Code Code Instructions Start End Status Dosage System Date Date Tresiba [facility] 53969898595 200 UNIT/ML May 10, Active 40 units FlexTouch Subcutaneous 2017 daily Metformin HCl [facility] 31530461910 500 MG Oral Active 1 tablet twice a day with a meal Flonase ND 07457465344 50 MCG/ACT May 10, Active 1 spray in Nasally Once a 2017 each day nostril Nitroglycerin [facility] 66200997124 0.4 MG May Active as directed Sublingual as 2017 needed for chest pain Clopidogrel ND 45558883913 75 MG Orally Active 1 tablet Bisulfate Once a day Atorvastatin ND 53844905810 40 MG Orally Active 1 tablet Calcium Once a day Carvedilol ND 42576473100 12.5 MG Orally Active 1 tablet twice a day Restasis [facility] 78716471406 0.05 % Active 1 drop into Ophthalmic affected Twice a day eye Ranexa [facility] 08195900753 500 MG Orally Active 1 tablet Twice a day Victoza [facility] 00023279465 18 MG/3ML Active 1.2 mg Subcutaneous once a day Pantoprazole [facility] 67962221176 20 MG Oral Once Active 1 tablet Sodium a day Lisinopril [facility] 59050606709 20 MG Orally Active 1 tablet Once a day Results No Known Results Summary Purpose eClinicalWorks Submission
--- OUTSIDE RECORDS SUMMARY | 2018-09-14 15:56 | XMS REPORT ---
[...] with other E11.69 Active specified complication Assessment Type 2 diabetes mellitus with other E11.69 Active specified complication Assessment Hypertension I10 Active Assessment Chronic renal failure, stage 2 N18.2 Active (mild) Problem Respiratory tract congestion with R05 Active cough Assessment Hyperlipidemia E78.5 Active Problem Encounter for screening mammogram Z12.31 Active for malignant neoplasm of breast Assessment Coronary atherosclerosis of artery I25.810 Active bypass graft Problem Coronary atherosclerosis of artery I25.810 Active bypass graft Medications Medication Code Code Instructions Start End Status Dosage System Date Date Pantoprazole [facility] 74070080887 20 MG Oral Once Active 1 tablet Sodium a day Zolpidem [facility] 94743751030 5 MG Orally Once August 12, Active 1 tablet at Tartrate a day 2018 bedtime Prevnar 13 [facility] 65919241899 - Intramuscular Active not defined Mavyret [facility] 93695608063 100-40 MG Orally Active 3 tablets Once a day Lisinopril [facility] 70140987613 20 MG Orally Active 1 tablet Once a day Nitrostat [facility] 35831577601 0.4 MG Mar 19, Active as directed Sublingual daily 2018 as needed Victoza [facility] 55729273433 18 MG/3ML Active 1.2 mg Subcutaneous once a day Ranexa [facility] 78687961685 500 MG Orally Active 1 tablet Twice a day Carvedilol [facility] 02551976036 12.5 MG Orally Active 1 tablet twice a day Fluticasone [facility] 10396931456 50 MCG/ACT Mar 03, Active 1 spray in Propionate Nasally Once a 2017 each day nostril Metformin HCl [facility] 07703523152 500 MG Oral Active 1 tablet twice a day with a meal Tresiba [facility] 72346599571 200 UNIT/ML May 10, Active 40 units FlexTouch Subcutaneous 2017 daily NovoTwist [facility] 11368274567 32G X 5 MM Active not defined Flonase ND 63883996838 50 MCG/ACT May 10, Active 1 spray in Nasally Once a 2017 each day nostril Restasis [facility] 03692881809 0.05 % Active 1 drop into Ophthalmic Twice affected a day eye Clopidogrel [facility] 56840235710 75 MG Orally Active 1 tablet Bisulfate Once a day Atorvastatin [facility] 98016813190 40 MG Orally Active 1 tablet Calcium Once a day Results No Known Results Summary Purpose eClinicalWorks Submission
--- OUTSIDE RECORDS SUMMARY | 2018-09-14 15:56 | XMS REPORT ---
[...] Active for malignant neoplasm of breast Assessment Viral URI J06.9 Active Problem Coronary atherosclerosis of artery I25.810 Active bypass graft Medications Medication Code Code Instructions Start End Status Dosage System Date Date Nitroglycerin [facility] 48455416148 0.4 MG Active as Sublingual directed Atorvastatin [facility] 17482779202 40 MG Orally Active 1 tablet Calcium Once a day Pantoprazole [facility] 60780987483 20 MG Oral Once Active 1 tablet Sodium a day Victoza [facility] 00892963719 18 MG/3ML Active 1.2 mg Subcutaneous once a day Prevnar 13 [facility] 84943842122 - Intramuscular Active not defined NovoTwist [facility] 42836714195 32G X 5 MM Active not defined Metformin HCl ND 66997359197 500 MG Oral Active 1 tablet twice a day with a meal Clopidogrel [facility] 02932829630 75 MG Orally Active 1 tablet Bisulfate Once a day Carvedilol [facility] 89464283037 12.5 MG Orally Active 1 tablet twice a day Restasis [facility] 00443475442 0.05 % Active 1 drop Ophthalmic Twice into a day affected eye Ranexa [facility] 06264568955 500 MG Orally Active 1 tablet Twice a day Mavyret [facility] 43145181739 100-40 MG Orally Active 3 tablets Once a day Fluticasone [facility] 64013936239 50 MCG/ACT Mar 03, Active 1 spray in Propionate Nasally Once a 2017 each day nostril Flonase ND 29685426489 50 MCG/ACT May 10, Active 1 spray in Nasally Once a 2017 each day nostril Zolpidem [facility] 19988306827 5 MG Orally Once August 12, Active 1 tablet Tartrate a day 2018 at bedtime GNP Loratadine-D [facility] 65160312020 5-120 MG Orally Mar 03, Mar 18, Active 1 tablet 12HR every 12 hrs 2017 2017 as needed Tresiba [facility] 05502281289 200 UNIT/ML May 10, Active 40 units FlexTouch Subcutaneous 2018 daily Lisinopril [facility] 62469365677 20 MG Orally Active 1 tablet Once a day Results No Known Results Summary Purpose eClinicalWorks Submission
--- OUTSIDE RECORDS SUMMARY | 2018-09-14 15:56 | XMS REPORT ---
[...] tract congestion with R05 Active cough Assessment Viral upper respiratory tract J06.9 Active infection Problem Encounter for screening mammogram Z12.31 Active for malignant neoplasm of breast Assessment Type 2 diabetes mellitus with other E11.69 Active specified complication Problem Coronary atherosclerosis of artery I25.810 Active bypass graft Medications Medication Code Code Instructions Start End Date Status Dosage System Date NovoTwist [facility] 11599343607 32G X 5 MM Active not defined Lisinopril [facility] 50369667868 20 MG Orally Active 1 tablet Once a day Prevnar 13 [facility] 55543436290 - Intramuscular Active not defined GNP [facility] 79384193612 5-120 MG Orally May 21May Active 1 tablet Loratadine-D every 12 hrs 2018 as needed 12HR Flonase ND 51494197745 50 MCG/ACT May 10, Active 1 spray in Nasally Once a 2017 each day nostril Fluticasone ND 21807148317 50 MCG/ACT Mar 03, Active 1 spray in Propionate Nasally Once a 2017 each day nostril Restasis ND 04253393584 0.05 % Active 1 drop Ophthalmic Twice into a day affected eye Nitrostat ND 46021030004 0.4 MG Mar 19, Active as Sublingual daily 2017 directed as needed Metformin HCl [facility] 90400886855 500 MG Oral Active 1 tablet twice a day with a meal Pantoprazole [facility] 09851339413 20 MG Oral Once Active 1 tablet Sodium a day Carvedilol [facility] 45108215599 12.5 MG Orally Active 1 tablet twice a day Zolpidem [facility] 60788444677 5 MG Orally Once August 12, Active 1 tablet Tartrate a day 2018 at bedtime Tresiba [facility] 64684080225 200 UNIT/ML May 10, Active 16 units FlexTouch Subcutaneous 2018 daily Clopidogrel [facility] 15762356031 75 MG Orally Active 1 tablet Bisulfate Once a day Atorvastatin [facility] 89776284819 40 MG Orally Active 1 tablet Calcium Once a day Mavyret [facility] 68851755425 100-40 MG Orally Active 3 tablets Once a day Victoza [facility] 82403810266 18 MG/3ML Active 1.2 mg Subcutaneous once a day Ranexa [facility] 61850108504 500 MG Orally Active 1 tablet Twice a day Results No Known Results Summary Purpose eClinicalWorks Submission
[2018-09-14] MEDS ORDERED: ACETAMINOPHEN 325 MG TABLET ONE (15:59)
[2018-09-14] MEDS ORDERED: IBUPROFEN 400 MG TAB ONE (15:59)
--- NOTE | 2018-09-14 17:23 | RAD REPORT ---
EXAM DESCRIPTION: RAD - Hip Left 2 View - 09/14/2018 4:47 pm CLINICAL HISTORY: Trip and fall, hip pain COMPARISON: None. FINDINGS: AP and frogleg views of the left hip were obtained. There is no fracture or dislocation. N o AVN or focal femoral head abnormality. Moderate severity degenerative changes present along the sup erior aspect of the left hip joint. No fracture of the left hemipelvis seen. Dense arterial tree calcifications are present. There is extensive stenting of the left lower extremi ty arterial tree. IMPRESSION: Moderate severity left hip degenerative change. No fracture.
--- NOTE | 2018-09-14 17:24 | RAD REPORT ---
EXAM DESCRIPTION: RAD - Pelvis - 09/14/2018 4:47 pm CLINICAL HISTORY: Fall, pelvic pain COMPARISON: None. TECHNIQUE: AP imaging of the pelvis was obtained. FINDINGS: No fracture of the bony pelvis identified. Lower lumbar degenerative changes are only part ially imaged. Left greater than right hip joint degenerative change seen without fracture, dislocatio n or acute hip joint finding. Dense arterial tree calcifications are present. Patient has stenting along the right iliac arterial t ree and bilateral femoral arterial tree. IMPRESSION: Degenerative change as detailed. No fracture.
--- NOTE | 2018-09-14 17:25 | RAD REPORT ---
EXAM DESCRIPTION: RAD - Knee Left 3 View - 09/14/2018 4:47 pm CLINICAL HISTORY: Fall, knee pain COMPARISON: July 2013 FINDINGS: No fracture, dislocation or periosteal reaction.No joint effusion seen. No joint space vinod rowing. 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 Enchondroma is a lesser consideration. Arterial tree calcifications and femoral and popliteal artery stenting present. IMPRESSION: Negative left knee for acute bone or joint finding. No significant change from 2014.
--- NOTE | 2018-09-14 17:54 | EDPHYS ---
Physician Documentation [facility] Name: Miya Emanuel Age: 72 yrs Sex: Female : 1945 Arrival Date: 09/14/2018 Time: 15:18 Bed 30 Private MD: ED Physician oDnato Walden HPI: 09/14 15:35 This 72 yrs old Black Female presents to ER via EMS with complaints of Knee Injury, Hip cp Injury. 15:35 Details of fall: The patient fell from an upright position, while walking. Onset: The cp symptoms/episode began/occurred this morning. Associated injuries: The patient sustained left knee and left hip, painful injury. 15:35 Patient reports trip and fall onto ground while at [employer] this morning. Patient reports cp continued pain to left hip and left knee. Historical: - Allergies: 15:25 No Known Allergies; ls4 - Home Meds: 15:25 clopidogrel 75 mg Oral tab 1 tab once daily [Active]; aspirin 81 mg Oral chew 1 tab ls4 once daily [Active]; lisinopril 10 mg Oral tab 1 tab once daily [Active]; 15:27 atorvastatin oral oral 1 tab once daily [Active]; ls4 - PMHx: 15:25 CAD; Diabetes - NIDDM; heart attack; Hepatitis C; Hyperlipidemia; Hypertension; ls4 - PSHx: 15:25 Cholecystectomy; CABG; Tonsillectomy; 7 cardiac stents; ls4 - Immunization history:: Adult Immunizations up to date. - Social history:: Smoking status: Patient/guardian denies using tobacco. - Ebola Screening: : Patient negative for fever greater than or equal to 101.5 degrees Fahrenheit, and additional compatible Ebola Virus Disease symptoms Patient denies exposure to infectious person Patient denies travel to an Ebola-affected area in the 21 days before illness onset No symptoms or risks identified at this time. ROS: 15:45 Constitutional: Negative for body aches, chills, fever, poor PO intake. cp 15:45 Eyes: Negative for injury, pain, redness, and discharge. cp 15:45 Neck: Negative for pain with movement, pain at rest, stiffness, bony tenderness. 15:45 Cardiovascular: Negative for chest pain, edema, palpitations. 15:45 Respiratory: Negative for cough, shortness of breath, wheezing. 15:45 Abdomen/GI: Negative for abdominal pain, nausea, vomiting, and diarrhea. 15:45 Back: Negative for pain at rest, pain with movement, radiated pain. 15:45 MS/extremity: Positive for pain, tenderness, of the left hip and left knee, Negative for decreased range of motion, deformity, paresthesias. 15:45 Skin: Negative for rash. 15:45 Neuro: Negative for altered mental status, headache, loss of consciousness, syncope, weakness. 15:45 All other systems are negative. Exam: 15:50 Constitutional: The patient appears in no acute distress, alert, awake, cp non-diaphoretic, non-toxic, well developed, well nourished. 15:50 Head/Face: Normocephalic, atraumatic. cp 15:50 Eyes: Periorbital structures: appear normal, Pupils: equal, round, and reactive to light and accomodation, Extraocular movements: intact throughout, Lids and lashes: appear normal, bilaterally. 15:50 ENT: External ear(s): are unremarkable, Nose: is normal, Mouth: Lips: moist, Oral mucosa: moist, Posterior pharynx: Airway: no evidence of obstruction, patent. 15:50 Neck: C-spine: vertebral tenderness, is not appreciated, crepitus, is not appreciated, ROM/movement: is normal, is supple, without pain, no range of motions limitations, no nuchal rigidity. 15:50 Chest/axilla: Inspection: normal, Palpation: is normal, no crepitus, no tenderness. 15:50 Cardiovascular: Rate: normal. 15:50 Respiratory: the patient does not display signs of respiratory distress, Respirations: normal, no use of accessory muscles, no retractions, no splinting, no tachypnea. 15:50 Abdomen/GI: Inspection: abdomen appears normal, Bowel sounds: active, all quadrants, Palpation: abdomen is soft and non-tender, in all quadrants, voluntary guarding, is not appreciated, involuntary guarding, is not appreciated. 15:50 Back: pain, is absent, ROM is normal. 15:50 Musculoskeletal/extremity: ROM: limited passive range of motion due to pain, in the left hip and left knee, Perfusion: the extremity is normally perfused throughout, Sensation intact. Joints: All joints are normal except the left hip displays pain at rest, painful range of motion, tenderness, the left knee displays painful range of motion, tenderness. 15:50 Neuro: Orientation: to person, place \T\ time. Mentation: is normal. Vital Signs: 15:31 BP 167 / 67; Pulse 79; Resp 14; Temp 98.6; Pulse Ox 96% on R/A; Weight 63.5 kg; Height ls4 5 ft. 1 in. (154.94 cm); Pain 8/10; 16:30 BP 148 / 72; Pulse 74; Resp 14; Pulse Ox 99% on R/A; Pain 5/10; ls4 15:31 Body Mass Index 26.45 (63.50 kg, 154.94 cm) ls4 MDM: 15:39 Patient medically screened. chanel 16:00 Differential diagnosis: closed head injury, contusion, fracture, multiple trauma. cp 17:06 ED course: xray of pelvis negative for fracture, xrays of left hip negative for cp fracture, xrays of left knee negative for fracture. 17:07 Data reviewed: vital signs, nurses notes, radiologic studies, plain films, and as a cp result, I will discharge patient. 17:07 Test interpretation: by ED physician or midlevel provider: plain radiologic studies. cp Counseling: I had a detailed discussion with the patient and/or guardian regarding: the historical points, exam findings, and any diagnostic results supporting the discharge/admit diagnosis, radiology results, to return to the emergency department if symptoms worsen or persist or if there are any questions or concerns that arise at home. Response to treatment: the patient's symptoms have markedly improved after treatment, and as a result, I will discharge patient. ED course: Patient observed ambulating in ED w/o assistance. 09/14 15:32 Order name: XRAY Pelvis cp 09/14 15:32 Order name: XRAY Hip LEFT 2 view cp 09/14 15:32 Order name: XRAY Knee LEFT 3 view cp 09/14 16:32 Order name: Misc. Order: ambulate patient; Complete Time: 16:42 cp Administered Medications: 15:45 Drug: Ibuprofen 800 mg Route: PO; ls4 16:15 Follow up: Response: No adverse reaction; Marked relief of symptoms ls4 15:45 Drug: Tylenol 650 mg Route: PO; ls4 16:15 Follow up: Response: No adverse reaction; Marked relief of symptoms ls4 Disposition: 09/15 10:08 Co-signature as Attending Physician, Donato Walden MD I agree with the assessment and chanel plan of care. Disposition: 09/14/18 17:08 Discharged to Home. Impression: Fall on same level from slipping, tripping and stumbling, Pain in left hip, Pain in left knee. - Condition is Stable. - Discharge Instructions: Knee Pain, Hip Pain. - Prescriptions for Naprosyn 500 mg Oral Tablet - take 1 tablet by ORAL route 2 times per day As needed take with food; 15 tablet. - Medication Reconciliation Form, Thank You Letter, Antibiotic Education, Prescription Opioid Use form. - Follow up: Private Physician; When: 2 - 3 days; Reason: Recheck today's complaints. - Problem is new. - Symptoms have improved. Signatures: Dispatcher [employer] EDDonato Morocho MD MD cha Page, Corey, PA PA cp Mary Vivas, RN RN ls4 Corrections: (The following items were deleted from the chart) 09/14 17:39 17:08 09/14/2018 17:08 Discharged to Home. Impression: Fall on same level from ls4 slipping, tripping and stumbling; Pain in left hip; Pain in left knee. Condition is Stable. Forms are Medication Reconciliation Form, Thank You Letter, Antibiotic Education, Prescription Opioid Use. Follow up: Private Physician; When: 2 - 3 days; Reason: Recheck today's complaints. Problem is new. Symptoms have improved. cp
--- NOTE | 2018-09-14 17:54 | ER ---
Nurse's Notes [facility] Name: Miya Emanuel Age: 72 yrs Sex: Female : 1945 Arrival Date: 09/14/2018 Time: 15:18 Bed 30 Private MD: Diagnosis: Fall on same level from slipping, tripping and stumbling;Pain in left hip;Pain in left knee Presentation: 09/14 15:20 Presenting complaint: Patient states: I was at [employer] and someone left satchel on ls4 ground and I tripped over it. I got up and was able to walk and drive home but Im still in pain in my left knee and hip. Transition of care: patient was not received from another setting of care. Onset of symptoms was September 14, 2018. Risk Assessment: Do you want to hurt yourself or someone else? Patient reports no desire to harm self or others. Initial Sepsis Screen: Does the patient meet any 2 criteria? No. Patient's initial sepsis screen is negative. Does the patient have a suspected source of infection? No. Patient's initial sepsis screen is negative. Care prior to arrival: None. 15:20 Method Of Arrival: EMS: [facility] ls4 15:20 Acuity: SHIRLEY 4 ls4 Triage Assessment: 15:27 General: Appears in no apparent distress. Behavior is calm, cooperative. Pain: ls4 Complains of pain in left hip Pain currently is 8 out of 10 on a pain scale. 15:30 Pain: Complains of pain in left hip Pain currently is 8 out of 10 on a pain scale. ls4 Musculoskeletal: Circulation, motion, and sensation intact. Capillary refill < 3 seconds, Range of motion: intact in all extremities, none Swelling absent no visible bruising or or redness. Injury Description: pt reports pain. Historical: - Allergies: 15:25 No Known Allergies; ls4 - Home Meds: 15:25 clopidogrel 75 mg Oral tab 1 tab once daily [Active]; aspirin 81 mg Oral chew 1 tab ls4 once daily [Active]; lisinopril 10 mg Oral tab 1 tab once daily [Active]; 15:27 atorvastatin oral oral 1 tab once daily [Active]; ls4 - PMHx: 15:25 CAD; Diabetes - NIDDM; heart attack; Hepatitis C; Hyperlipidemia; Hypertension; ls4 - PSHx: 15:25 Cholecystectomy; CABG; Tonsillectomy; 7 cardiac stents; ls4 - Immunization history:: Adult Immunizations up to date. - Social history:: Smoking status: Patient/guardian denies using tobacco. - Ebola Screening: : Patient negative for fever greater than or equal to 101.5 degrees Fahrenheit, and additional compatible Ebola Virus Disease symptoms Patient denies exposure to infectious person Patient denies travel to an Ebola-affected area in the 21 days before illness onset No symptoms or risks identified at this time. Screenin:34 Abuse screen: Denies threats or abuse. Denies injuries from another. Nutritional ls4 screening: No deficits noted. Tuberculosis screening: No symptoms or risk factors identified. Fall Risk None identified. Assessment: 15:32 Reassessment: Patient appears in no apparent distress at this time. Patient is alert, ls4 oriented x 3, equal unlabored respirations, skin warm/dry/pink. Neuro: No deficits noted. Cardiovascular: No deficits noted. Respiratory: No deficits noted. GI: No deficits noted. : No deficits noted. Derm: No deficits noted. Musculoskeletal: Circulation, motion, and sensation intact. Capillary refill < 3 seconds, Range of motion: intact in all extremities, Tenderness present in left hip and left knee Denies. 16:43 Reassessment: Patient appears in no apparent distress at this time. Patient and/or ls4 family updated on plan of care and expected duration. Pain level reassessed. Patient is alert, oriented x 3, equal unlabored respirations, skin warm/dry/pink. pt ambulated. Pt has limp but gate steady. pt able to bend left hip and left knee while sitting on bed to put slipper independently. Vital Signs: 15:31 BP 167 / 67; Pulse 79; Resp 14; Temp 98.6; Pulse Ox 96% on R/A; Weight 63.5 kg; Height ls4 5 ft. 1 in. (154.94 cm); Pain 8/10; 16:30 BP 148 / 72; Pulse 74; Resp 14; Pulse Ox 99% on R/A; Pain 5/10; ls4 15:31 Body Mass Index 26.45 (63.50 kg, 154.94 cm) ls4 ED Course: 15:18 Patient arrived in ED. aa5 15:19 Mary Vivas, RN is Primary Nurse. ls4 15:21 Triage completed. ls4 15:22 Donato Schneider PA is PHCP. cp 15:22 Donato Walden MD is Attending Physician. cp 15:31 Arm band placed on. ls4 15:34 Patient has correct armband on for positive identification. Bed in low position. Call ls4 light in reach. Side rails up X 1. Pulse ox on. NIBP on. Warm blanket given. Pillow given. Verbal reassurance given. 16:42 No provider procedures requiring assistance completed. Patient did not have IV access ls4 during this emergency room visit. 16:47 XRAY Pelvis In Process Unspecified. EDMS 16:47 XRAY Hip LEFT 2 view In Process Unspecified. EDMS 16:47 XRAY Knee LEFT 3 view In Process Unspecified. EDMS Administered Medications: 15:45 Drug: Ibuprofen 800 mg Route: PO; ls4 16:15 Follow up: Response: No adverse reaction; Marked relief of symptoms ls4 15:45 Drug: Tylenol 650 mg Route: PO; ls4 16:15 Follow up: Response: No adverse reaction; Marked relief of symptoms ls4 Outcome: 17:08 Discharge ordered by MD. cp 17:24 Discharged to home ambulatory. ls4 17:24 Condition: stable 17:24 Discharge instructions given to patient, Instructed on discharge instructions, follow up and referral plans. medication usage, safety practices, Demonstrated understanding of instructions, follow-up care, medications, Prescriptions given X 1. 17:39 Patient left the ED. ls4 Signatures: Dispatcher [employer] EDMS Shaista Bojorquez, RN RN aa5 Donato Schneider PA PA cp Stewart, Lisa, RN RN ls4
[2018-09-14 18:48] VITALS: TEMP 98.6
[2018-09-14 18:50] VITALS: BP 148/72; O2SAT 99
== END 2018-09-14 17:39 | disposition home or self-care (01) ==
LOC: ER 15:14
DX: M25.562 Pain in left knee (principal); W01.0XXA Fall on same level from slipping, tripping and stumbling without subsequent striking against object, initial encounter; Y93.01 Activity, walking, marching and hiking; Y92.22 Religious institution as the place of occurrence of the external cause; Z79.82 Long term (current) use of aspirin; Z95.1 Presence of aortocoronary bypass graft; Z95.818 Presence of other cardiac implants and grafts; I10 Essential (primary) hypertension; E11.9 Type 2 diabetes mellitus without complications; E78.5 Hyperlipidemia, unspecified; I25.10 Atherosclerotic heart disease of native coronary artery without angina pectoris
CPT/HCPCS: 72170; 99284

== ENCOUNTER 2019-06-22 15:04 | Emergency (ER) | payer OTHER ==
--- OUTSIDE RECORDS SUMMARY | 2019-06-22 15:06 | XMS REPORT ---
[...] I25.810 Active bypass graft Medications Medication Code System Code Instructions Start Date End Date Status Dosage Lisinopril [facility] 92921906313 20 MG Orally Once Active 1 tablet a day Results No Known Results Summary Purpose eClinicalWorks Submission
--- OUTSIDE RECORDS SUMMARY | 2019-06-22 15:07 | XMS REPORT ---
:1945 Author Organization eClinicalWorks Care Team Providers Name Role Phone Katlyn Benitez Provider Role Unavailable Allergies No Known Allergies Problems Problem Type Condition Code Onset Dates Condition Status Problem Chronic renal failure, stage 2 N18.2 Active (mild) Problem Hyperlipidemia, unspecified E78.5 Active hyperlipidemia type Problem Type 2 diabetes mellitus with E11.21 Active diabetic nephropathy Problem Essential hypertension I10 Active Problem Encounter for screening mammogram Z12.31 Active for malignant neoplasm of breast Problem 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) Problem Respiratory tract congestion with R05 Active cough Problem Microalbuminuria R80.9 Active Problem History of hepatitis C virus Z86.19 Active infection Problem Stage 3 chronic kidney disease N18.3 Active Problem Right shoulder pain, unspecified M25.511 Active chronicity Problem 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 Problem Hypertension I10 Active Problem Hyperlipidemia E78.5 Active Problem Coronary atherosclerosis of artery I25.810 Active bypass graft Problem Stress incontinence N39.3 Active Problem Osteoarthritis of knees, bilateral M17.0 Active Problem Esophagitis, unspecified K20.9 Active Problem Hepatitis C carrier Z22.52 Active Problem Chronic hepatitis C without hepatic B18.2 Active coma Problem Type 2 diabetes mellitus with other E11.69 Active specified complication Problem Primary insomnia F51.01 Active Medications No Known Medications Results No Known Results Summary Purpose eClinicalWorks Submission
--- OUTSIDE RECORDS SUMMARY | 2019-06-22 15:07 | XMS REPORT ---
:1945 [facility] Care Team Providers Name Role Phone Katlyn Benitez Provider Role Unavailable Allergies, Adverse Reactions, Alerts Substance Reaction Event Type N.K.D.A. 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 Problem Chronic hepatitis C without hepatic B18.2 Active coma Assessment Essential hypertension I10 Active Problem Primary insomnia F51.01 Active Assessment Type 2 diabetes mellitus with E11.21 Active diabetic nephropathy Problem Chronic renal failure, stage 2 N18.2 Active (mild) Problem Hyperlipidemia, unspecified E78.5 Active hyperlipidemia type Problem Type 2 diabetes mellitus with E11.21 Active diabetic nephropathy Problem Essential hypertension I10 Active Problem 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) Problem Encounter for screening mammogram Z12.31 Active for malignant neoplasm of breast Problem Respiratory tract congestion with R05 Active cough Problem Microalbuminuria R80.9 Active Problem History of hepatitis C virus Z86.19 Active infection Problem Stage 3 chronic kidney disease N18.3 Active Problem Right shoulder pain, unspecified M25.511 Active chronicity Problem 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 Problem Hypertension I10 [...] Start End Status Dosage System Date Date Victoza [facility] 32004446801 18 MG/3ML Active 1.8 mg Subcutaneous Once a day NovoTwist [facility] 63018702131 32G X 5 MM Active not defined Atorvastatin [facility] 29397810848 40 MG Orally Active 1 tablet Calcium Once a day Pen [place] [facility] 10722965443 32G X 5 MM Mar 05, Active as directed Subcutaneous 2019 Once daily on each pen (To be used with Tresiba FlexTouch & Victoza) Carvedilol [facility] 97838991803 12.5 MG Orally Active 1 tablet twice a day Flonase [facility] 08884622674 50 MCG/ACT May 10, Active 1 spray in Nasally Once a 2017 each day nostril Metformin HCl [facility] 79833893818 500 MG Oral Active 1 tablet twice a day with a meal Nitrostat [facility] 32589021610 0.4 MG May 13, Active as directed Sublingual 1 2020 tablet every 5 minutes x 3 doses as needed for chest pain Zolpidem ND 00549636839 5 MG Orally Once August 12, Active 1 tablet at Tartrate a day 2017 bedtime Lisinopril [facility] 76018634305 20 MG Orally Active 1 tablet Once a day Amlodipine ND 92717791143 5 MG Orally Once Active 1 tablet Besylate daily Mavyret [facility] 64436178748 100-40 MG Orally Active 3 tablets Once a day Ranexa [facility] 05338431977 500 MG Orally Active 1 tablet Twice a day Prevnar 13 [facility] 97764114873 - Intramuscular Active not defined Tresiba [facility] 10079314665 200 UNIT/ML Active 40 units FlexTouch Subcutaneous Once daily Naproxen ND 99572834858 500 MG Orally Active 1 tablet every 12 hrs with food or milk as needed Nitrostat [facility] 58796037279 0.4 MG Mar 19, Active as directed Sublingual daily 2017 as needed Clopidogrel ND 68564563006 75 MG Orally Active 1 tablet Bisulfate Once a day Restasis [facility] 64794721585 0.05 % Active 1 drop into Ophthalmic Twice affected a day eye Pantoprazole [facility] 43251527683 20 MG Oral Once Active 1 tablet Sodium a day Results No Known Results Summary Purpose eClinicalWorks Submission
--- OUTSIDE RECORDS SUMMARY | 2019-06-22 15:07 | XMS REPORT ---
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
--- OUTSIDE RECORDS SUMMARY | 2019-06-22 15:07 | XMS REPORT ---
:1945 [facility] Team Providers Name Role Phone Katlyn Benitez Provider Role Unavailable Allergies, Adverse Reactions, Alerts Substance Reaction Event Type N.K.D.A. Info Not Available Non Drug Allergy Problems Problem Type Condition Code Onset Dates Condition Status Problem Hypertension I10 Active Problem Type 2 diabetes mellitus with other E11.69 Active specified complication Problem Hyperlipidemia E78.5 Active Problem Chronic renal failure, stage 2 N18.2 Active (mild) Problem Primary insomnia F51.01 Active Problem Type 2 diabetes mellitus with E11.21 Active diabetic nephropathy Problem Osteoarthritis of knees, bilateral M17.0 Active Problem Hepatitis C carrier Z22.52 Active Problem Chronic hepatitis C without hepatic B18.2 Active coma Problem Esophagitis, unspecified K20.9 Active Assessment Type 2 diabetes mellitus with E11.21 Active diabetic nephropathy Assessment Screening mammogram, encounter for Z12.31 Active Problem Respiratory tract congestion with R05 Active cough Problem Encounter for screening mammogram Z12.31 Active for malignant neoplasm of breast Assessment Eye hemorrhage H57.89 Active Problem Coronary atherosclerosis of artery I25.810 Active bypass graft Problem Stress incontinence N39.3 Active Medications Medication Code Code Instructions Start End Status Dosage System Date Date Carvedilol [facility] 88774636895 12.5 MG Orally Active 1 tablet twice a day Atorvastatin [facility] 51825748844 40 MG Orally Active 1 tablet Calcium Once a day NovoTwist ND 24984869973 32G X 5 MM Active not defined Naproxen ND 15016468451 500 MG Orally Active 1 tablet every 12 hrs with food or milk as needed Restasis [facility] 58324727527 0.05 % Active 1 drop into Ophthalmic Twice affected a day eye Lisinopril ND 13317365033 20 MG Orally Active 1 tablet Once a day Pantoprazole ND 84839832155 20 MG Oral Once Active 1 tablet Sodium a day Prevnar 13 [facility] 96074493308 - Intramuscular Active not defined Tresiba [facility] 58870484264 200 UNIT/ML May 10, Active 16 units FlexTouch Subcutaneous 2017 daily Ranexa [facility] 03079376455 500 MG Orally Active 1 tablet Twice a day Clopidogrel [facility] 31414153566 75 MG Orally Active 1 tablet Bisulfate Once a day Mavyret [facility] 66124936236 100-40 MG Orally Active 3 tablets Once a day Zolpidem ND 06676558101 5 MG Orally Once August 12, Active 1 tablet at Tartrate a day 2018 bedtime Victoza [facility] 46477768272 18 MG/3ML Mar 22, Active 1.2 mg Subcutaneous 2018 once a day Metformin HCl [facility] 41165762274 500 MG Oral Active 1 tablet twice a day with a meal Flonase [facility] 51056985299 50 MCG/ACT May 10, Active 1 spray in Nasally Once a 2017 each day nostril Nitrostat [facility] 95607744445 0.4 MG Mar 19, Active as directed Sublingual daily 2017 as needed Amlodipine [facility] 23686342303 5 MG Oral Active TAKE 1 Besylate TABLET BY MOUTH ONCE DAILY Results No Known Results Summary Purpose eClinicalWorks Submission
--- OUTSIDE RECORDS SUMMARY | 2019-06-22 15:07 | XMS REPORT ---
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 Problem Chronic renal failure, stage 2 N18.2 [...] Problem 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
--- OUTSIDE RECORDS SUMMARY | 2019-06-22 15:07 | XMS REPORT ---
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 Problem Hypertension I10 Active Problem Hyperlipidemia E78.5 Active Problem Coronary atherosclerosis of artery I25.810 Active bypass graft Problem Stress incontinence N39.3 Active Problem Osteoarthritis of knees, bilateral M17.0 Active Problem Esophagitis, unspecified K20.9 Active Assessment Essential hypertension I10 Active Problem Hepatitis C carrier Z22.52 Active Problem Chronic hepatitis C without hepatic B18.2 Active coma Assessment Hyperlipidemia, unspecified E78.5 Active hyperlipidemia type Problem Type 2 diabetes mellitus with other E11.69 Active specified complication Problem Primary insomnia F51.01 Active Medications Medication Code Code Instructions Start End Status Dosage System Date Date Atorvastatin [facility] 08388060766 40 MG Orally Active 1 tablet Calcium Once a day Lisinopril [facility] 94927842302 20 MG Orally Active 1 tablet Once a day Results No Known Results Summary Purpose eClinicalWorks Submission
--- OUTSIDE RECORDS SUMMARY | 2019-06-22 15:07 | XMS REPORT ---
:1945 [facility] Team Providers Name Role Phone Katlyn Benitez Provider Role Unavailable Allergies, Adverse Reactions, Alerts Substance Reaction Event Type N.K.D.A. 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 Problem Chronic hepatitis [...] Problem 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 Problem Hypertension I10 [...] Start End Date Status Dosage System Date Zolpidem [facility] 32607324389 5 MG Orally Once August 12, Active 1 tablet Tartrate a day 2017 at bedtime Pantoprazole [facility] 51499035958 20 MG Oral Once Active 1 tablet Sodium a day NovoTwist [facility] 16657875071 32G X 5 MM Active not defined Prevnar 13 [facility] 39369424018 - Intramuscular Active not defined Clopidogrel [facility] 39818354391 75 MG Orally Active 1 tablet Bisulfate Once a day Ranexa [facility] 17570635129 500 MG Orally Active 1 tablet Twice a day Restasis [facility] 86422362379 0.05 % Active 1 drop Ophthalmic Twice into a day affected eye Mavyret [facility] 31471288113 100-40 MG Orally Active 3 tablets Once a day Metformin HCl [facility] 18651966585 500 MG Oral Active 1 tablet twice a day with a meal Tresiba [facility] 47065274781 200 UNIT/ML May 10, Active 16 units FlexTouch Subcutaneous 2017 Once daily Victoza [facility] 91543397586 18 MG/3ML May Active 1.8 mg Subcutaneous 2020 Once a day Nitrostat [facility] 37500460723 0.4 MG Mar 19, Active as Sublingual daily 2017 directed as needed Atorvastatin [facility] 21555447394 40 MG Orally Active 1 tablet Calcium Once a day Naproxen [facility] 47520920032 500 MG Orally Active 1 tablet every 12 hrs with food or milk as needed Flonase [facility] 70414146845 50 MCG/ACT May 10, Active 1 spray in Nasally Once a 2017 each day nostril Lisinopril [facility] 11494947548 20 MG Orally Active 1 tablet Once a day Pen [place] [facility] 88917489187 32G X 5 MM Mar 05, Active as Subcutaneous 2018 directed Once daily on each pen (To be used with Tresiba FlexTouch & Victoza) Carvedilol [facility] 79257607247 12.5 MG Orally Active 1 tablet twice a day Meloxicam [facility] 83339747835 7.5 MG Orally Mar 05, May 04, Active 1-2 Once a day 2018 2019 tablets as needed for pain; take with food or milk Amlodipine [facility] 29674551826 5 MG Oral Active TAKE 1 Besylate TABLET BY MOUTH ONCE DAILY Results Name Result Date Reference Range Unit Abnormality Flag GLUCOSE FINGER ----Result 421--[facility] [id number] Summary Purpose eClinicalWorks Submission
[2019-06-22] MEDS ORDERED: NA CHLORIDE 0.9% 1,000 ML ONE (15:39)
[2019-06-22 15:51] LABS: Absolute Lymphocytes (CBC) 1.8 K/uL (0.7-4.9); Basophils % 0.7 % (0-1.3); Lymphocytes % 36.8 % (15.3-44.8); MPV 10.7 fL (7.6-11.3); RBC Red Blood Cell Count 4.74 M/uL (3.86-4.86)
[2019-06-22 16:08] LABS: Albumin 3.7 g/dL (3.4-5.0); Bilirubin Total 0.4 mg/dL (0.2-1.0); Potassium 4.9 mmol/L (3.5-5.1); Protein, Total 8.3 g/dL (6.4-8.2)
--- NOTE | 2019-06-22 16:35 | ER ---
Nurse's Notes [facility] Name: Miya Emanuel Age: 73 yrs Sex: Female : 1945 Arrival Date: 06/22/2019 Time: 15:10 Bed 20 Private MD: Diagnosis: Hyperglycemia, unspecified Presentation: 06/21 15:19 Chief complaint: Patient states: FSBS was 446 about 10 minutes ago. I haven't been able [facility] to see me doctor. Coronavirus screen: Patient denies fever greater than 100.4F, cough, shortness of breath, or difficulty breathing. Proceed with normal triage process. Ebola Screen: No symptoms or risks identified at this time. Initial Sepsis Screen: Does the patient meet any 2 criteria? No. Patient's initial sepsis screen is negative. Does the patient have a suspected source of infection? No. Patient's initial sepsis screen is negative. Risk Assessment: Do you want to hurt yourself or someone else? Patient reports no desire to harm self or others. Onset of symptoms is unknown. 15:19 Method Of Arrival: Ambulatory [facility] 15:19 Acuity: SHIRLEY 3 jl7 Triage Assessment: 15:23 General: Appears in no apparent distress. uncomfortable, Behavior is calm, cooperative, jl7 appropriate for age. Pain: Denies pain. Historical: - Allergies: 15:23 No Known Allergies; jl7 - Home Meds: 15:23 amlodipine 2.5 mg tab 1 tab TID [Active]; aspirin 81 mg Oral chew 1 tab once daily jl7 [Active]; atorvastatin Oral 1 tab once daily [Active]; carvedilol 6.25 mg Oral tab 1 tab 2 times per day [Active]; clopidogrel 75 mg Oral tab 1 tab once daily [Active]; gabapentin 300 mg Oral cap 1 cap BID [Active]; Iron CR Oral 27 mg daily [Active]; lisinopril 10 mg Oral tab 1 tab once daily [Active]; omeprazole 40 mg Oral cpDR 1 cap once daily [Active]; raloxifene 60 mg Oral tab 1 tab once daily [Active]; Ranexa oral oral [Active]; Tresiba FlexTouch U-100 100 unit/mL (3 mL) subcutaneous inpn [Active]; - PMHx: 15:23 CAD; Diabetes - NIDDM; heart attack; Hepatitis C; Hyperlipidemia; Hypertension; jl7 Myocardial infarction; - PSHx: 15:23 7 cardiac stents; Tonsillectomy; CABG; Cholecystectomy; jl7 - Immunization history:: Adult Immunizations up to date. - Social history:: Smoking status: Patient denies any tobacco usage or history of. Screenin:40 Abuse screen: Denies threats or abuse. Nutritional screening: No deficits noted. em Tuberculosis screening: No symptoms or risk factors identified. Fall Risk None identified. Assessment: 15:35 General: Appears in no apparent distress. comfortable, well groomed, well developed, em well nourished, Behavior is calm, cooperative, appropriate for age, Reports reports glucose in the 600s few days and 400s this morning Denies fever. Pain: Denies pain. Neuro: Level of Consciousness is awake, alert, obeys commands, Oriented to person, place, time, situation, Appropriate for age. Cardiovascular: Capillary refill < 3 seconds Patient's skin is warm and dry. Respiratory: Airway is patent Respiratory effort is even, unlabored, Respiratory pattern is regular, symmetrical. GI: Abdomen is round non-distended, Patient currently denies nausea, vomiting. Derm: Skin is intact, is healthy with good turgor, Skin is pink, warm \T\ dry. Musculoskeletal: Capillary refill < 3 seconds, Range of motion: intact in all extremities. Vital Signs: 15:19 BP 167 / 76; Pulse 73; Resp 16; Temp 97.3; Pulse Ox 100% ; Weight 71.67 kg; Pain 0/10; jl7 16:00 BP 165 / 75; Pulse 72; Resp 18; Pulse Ox 99% on R/A; em ED Course: 15:10 Patient arrived in ED. fj1 15:15 Anthony Guerrero PA is PHCP. jmm 15:15 Donato Walden MD is Attending Physician. jm 15:20 Triage completed. jl7 15:23 Arm band placed on right wrist. jl7 15:28 David Hurst, RN is Primary Nurse. em 15:40 Patient has correct armband on for positive identification. Bed in low position. Call em light in reach. Pulse ox on. NIBP on. 15:40 Initial lab(s) drawn, by ED staff, sent to lab. Inserted saline lock: 20 gauge in right em antecubital area, using aseptic technique. Blood collected. 16:50 No provider procedures requiring assistance completed. IV discontinued, intact, em bleeding controlled, No redness/swelling at site. Pressure dressing applied. Administered Medications: 15:46 Drug: NS 0.9% 1000 ml Route: IV; Rate: 1 bolus; Site: right antecubital; em 16:52 Follow up: IV Status: Completed infusion; IV Intake: 1000ml em Intake: 16:52 IV: 1000ml; Total: 1000ml. em Outcome: 16:34 Discharge ordered by . swati 16:52 Discharged to home ambulatory. em 16:52 Condition: good 16:52 Discharge instructions given to patient, Instructed on discharge instructions, follow up and referral plans. medication usage, Demonstrated understanding of instructions, follow-up care, medications, Prescriptions given X 1. 16:53 Patient left the ED. em Signatures: Anthony Guerrero PA PA jmm Munoz, Edgar, RN RN em Tish Potts RN RN Chapito Rogers fj1
--- NOTE | 2019-06-22 16:36 | EDPHYS ---
Physician Documentation [facility] Name: Miya Emanuel Age: 73 yrs Sex: Female : 1945 Arrival Date: 06/22/2019 Time: 15:10 Bed 20 Private MD: ED Physician Donato Walden HPI: 06/21 15:48 This 73 yrs old Black Female presents to ER via Ambulatory with complaints of High jmm Blood Sugar. 15:48 The patient or guardian reports hyperglycemia. Onset: The symptoms/episode jmm began/occurred gradually, 5 day(s) ago. Associated signs and symptoms: Pertinent negatives: vomiting. This is a 73 year old female with a history of CAD, DM, Hep C, HLP, that presents to the ED with complaints of elevated blood glucose. Patient states BGL have been as high as 600 at home. Denies vomiting or shortness of breath. . Historical: - Allergies: 15:23 No Known Allergies; jl7 - Home Meds: 15:23 amlodipine 2.5 mg tab 1 tab TID [Active]; aspirin 81 mg Oral chew 1 tab once daily jl7 [Active]; atorvastatin Oral 1 tab once daily [Active]; carvedilol 6.25 mg Oral tab 1 tab 2 times per day [Active]; clopidogrel 75 mg Oral tab 1 tab once daily [Active]; gabapentin 300 mg Oral cap 1 cap BID [Active]; Iron CR Oral 27 mg daily [Active]; lisinopril 10 mg Oral tab 1 tab once daily [Active]; omeprazole 40 mg Oral cpDR 1 cap once daily [Active]; raloxifene 60 mg Oral tab 1 tab once daily [Active]; Ranexa oral oral [Active]; Tresiba FlexTouch U-100 100 unit/mL (3 mL) subcutaneous inpn [Active]; - PMHx: 15:23 CAD; Diabetes - NIDDM; heart attack; Hepatitis C; Hyperlipidemia; Hypertension; jl7 Myocardial infarction; - PSHx: 15:23 7 cardiac stents; Tonsillectomy; CABG; Cholecystectomy; jl7 - Immunization history:: Adult Immunizations up to date. - Social history:: Smoking status: Patient denies any tobacco usage or history of. ROS: 15:48 Constitutional: Negative for fever, chills, and weight loss, Cardiovascular: Negative jmm for chest pain, palpitations, and edema, Respiratory: Negative for shortness of breath, cough, wheezing, and pleuritic chest pain, Abdomen/GI: Negative for abdominal pain, nausea, vomiting, diarrhea, and constipation, Neuro: Negative for headache, weakness, numbness, tingling, and seizure. 15:48 All other systems are negative. Exam: 15:48 Constitutional: This is a well developed, well nourished patient who is awake, alert, jmm and in no acute distress. Head/Face: atraumatic. Eyes: EOMI, no conjunctival erythema appreciated ENT: Moist Mucus Membranes Neck: Trachea midline, Supple Chest/axilla: Normal chest wall appearance and motion. Cardiovascular: Regular rate and rhythm. No edema appreciated Respiratory: Normal respirations, no respiratory distress appreciated Abdomen/GI: Non distended, soft Back: Normal ROM Skin: General appearance color normal MS/ Extremity: Moves all extremities, no obvious deformities appreciated, no edema noted to the lower extremities Neuro: Awake and alert, normal gait Psych: Behavior is normal, Mood is normal, Patient is cooperative and pleasant Vital Signs: 15:19 BP 167 / 76; Pulse 73; Resp 16; Temp 97.3; Pulse Ox 100% ; Weight 71.67 kg; Pain 0/10; jl7 16:00 BP 165 / 75; Pulse 72; Resp 18; Pulse Ox 99% on R/A; em MDM: 15:28 Patient medically screened. [facility] 16:32 Data reviewed: vital signs, nurses notes. Counseling: I had a detailed discussion with [facility] the patient and/or guardian regarding: the historical points, exam findings, and any diagnostic results supporting the discharge/admit diagnosis, lab results, the need for outpatient follow up, to return to the emergency department if symptoms worsen or persist or if there are any questions or concerns that arise at home. ED course: I discussed the lab results with the patient. Will add metformin 500 mg daily. Patient advised to closely monitor bgl at this time and return to the ED if symptoms develop. Patient understood and agrees with the plan. . 06/21 15:33 Order name: CBC with Diff; Complete Time: 15:57 [facility] 06/21 15:33 Order name: CMP; Complete Time: 16:11 [facility] 06/21 15:39 Order name: Glucose, Ancillary Testing; Complete Time: 15:50 EDMS Administered Medications: 15:46 Drug: NS 0.9% 1000 ml Route: IV; Rate: 1 bolus; Site: right antecubital; em 16:52 Follow up: IV Status: Completed infusion; IV Intake: 1000ml em Disposition: 17:06 Co-signature as Attending Physician, Donato Walden MD I agree with the assessment and chanel plan of care. Disposition: 06/22/19 16:34 Discharged to Home. Impression: Hyperglycemia, unspecified. - Condition is Stable. - Discharge Instructions: Hyperglycemia. - Prescriptions for Metformin 500 mg Oral Tablet - take 1 tablet by ORAL route once daily for 7 days Then take 1 tablet with morning meals AND evening meals; 21 tablet. - Medication Reconciliation Form, Thank You Letter, Antibiotic Education, Prescription Opioid Use form. - Follow up: Private Physician; When: 2 - 3 days; Reason: Recheck today's complaints, Continuance of care, Re-evaluation by your physician. Signatures: Dispatcher [employer] Donato Ng MD MD cha Mickail, Joel, PA PA jmm Munoz, Edgar, RN RN Tish Nuno RN RN jl7 Corrections: (The following items were deleted from the chart) 16:53 16:34 06/22/2019 16:34 Discharged to Home. Impression: Hyperglycemia, unspecified. em Condition is Stable. Forms are Medication Reconciliation Form, Thank You Letter, Antibiotic Education, Prescription Opioid Use. Follow up: Private Physician; When: 2 - 3 days; Reason: Recheck today's complaints, Continuance of care, Re-evaluation by your physician. swati
[2019-06-22 17:04] VITALS: TEMP 97.3
[2019-06-22 17:06] VITALS: BP 165/75; O2SAT 99
== END 2019-06-22 16:53 | disposition home or self-care (01) ==
LOC: ER 15:04
DX: E11.65 Type 2 diabetes mellitus with hyperglycemia (principal); I10 Essential (primary) hypertension; E78.5 Hyperlipidemia, unspecified; I25.10 Atherosclerotic heart disease of native coronary artery without angina pectoris; I25.2 Old myocardial infarction; Z79.82 Long term (current) use of aspirin; Z79.4 Long term (current) use of insulin; Z95.1 Presence of aortocoronary bypass graft; Z95.818 Presence of other cardiac implants and grafts
CPT/HCPCS: 85025; 36415; 82947; 80053; 96360; 99284; J7030

== ENCOUNTER → 2023-03-17 | Emergency (ER) | payer MEDICARE ==
[~2023-03-17] MED LIST: dexAMETHasone 10 MG/ML VIAL ONE
--- NOTE | 2023-03-17 19:55 | RAD REPORT ---
EXAM DESCRIPTION: Krysta Pa And Lat (2 Views)03/17/2023 7:00 pm CLINICAL HISTORY: Cough;Chest pain COMPARISON: Chest Single View dated 09/01/2017; Chest Single View dated 06/12/2016; Chest Single View dated 02/14/2016 TECHNIQUE: Portable AP view of the chest. FINDINGS: The lungs are clear. No pneumothorax or effusion. The cardiomediastinal contours are unch anged, again with sequelae of CABG and tortuosity of the descending aorta. IMPRESSION: No acute cardiopulmonary process.
[2023-03-17 20:04] LABS: SARS-CoV-2 Antigen Rapid Res Negative (Negative)
--- NOTE | 2023-03-17 20:06 | EDPHYS ---
Physician Documentation [facility] Name: Miya Emanuel Age: 77 yrs Sex: Female : 1945 Arrival Date: 03/17/2023 Time: 17:18 Bed DIS3 Private MD: ED Physician Guanakito Melchor HPI: 03/17 20:24 This 77 yrs old Black Female presents to ER via Wheelchair with complaints of Flu sb4 Symptoms. 21:06 patient states she has had cough, congestion, gen weakness for about 3 weeks now. she sb4 has been taking several OTC medications without relief. she was seen by her pcp a few days ago and started on antibiotics but states she is not feeling any better. denies any chest pain, shortness of breath. Historical: - PMHx: 18:00 Diabetes - NIDDM; heart attack; Hyperlipidemia; Hypertension; Hepatitis C; Myocardial db infarction; CAD; - Immunization history:: Adult Immunizations unknown, Client reports receiving the 2nd dose of the Covid vaccine. - Social history:: Smoking status: Patient denies any tobacco usage or history of. ROS: 21:06 Eyes: Negative for injury, pain, redness, and discharge, Cardiovascular: Negative for sb4 chest pain, palpitations, and edema, Abdomen/GI: Negative for abdominal pain, nausea, vomiting, diarrhea, and constipation, MS/Extremity: Negative for injury and deformity, Skin: Negative for injury, rash, and discoloration, Neuro: Negative for headache, weakness, numbness, tingling, and seizure, 21:06 Constitutional: Positive for body aches, malaise, 21:06 ENT: Positive for sinus congestion, sore throat, 21:06 Respiratory: Positive for cough, 21:06 All other systems are negative, Exam: 21:06 Constitutional: This is a well developed, well nourished patient who is awake, alert, sb4 and in no acute distress. Head/Face: Normocephalic, atraumatic. Eyes: Extra-ocular motions intact. Periorbital areas with no swelling, redness, or edema. ENT: Mucous membranes moist. Cardiovascular: Regular rate and rhythm with a normal S1 and S2. Respiratory: Lungs have equal breath sounds bilaterally, clear to auscultation and percussion. No rales, rhonchi or wheezes noted. No increased work of breathing, no retractions or nasal flaring. Abdomen/GI: Soft, non-tender, no distension. Skin: Warm, dry with normal turgor. Normal color with no rashes, no lesions, and no evidence of cellulitis. MS/ Extremity: Pulses equal, no cyanosis. Neurovascular intact. Full, normal range of motion. Neuro: Awake and alert, GCS 15, oriented to person, place, time, and situation. Motor strength 5/5 in all extremities. Sensory grossly intact. Vital Signs: 17:59 BP 141 / 51; Pulse 51; Resp 18; Temp 97.3; Pulse Ox 98% ; Weight 72.57 kg; Height 5 ft. db 2 in. ; Pain 0/10; 17:59 Body Mass Index 29.26 (72.57 kg, 157.48 cm) db 17:59 Pain Scale: Adult db MDM: 17:24 Patient medically screened. sb4 21:06 Differential diagnosis: viral Infection, bacterial infection, URI, pneumonia. Data sb4 reviewed: vital signs, nurses notes, lab test result(s), radiologic studies, and as a result, I will discharge patient. Counseling: I had a detailed discussion with the patient and/or guardian regarding the historical points, exam findings, and any diagnostic results supporting the discharge/admit diagnosis, lab results, radiology results, to return to the emergency department if symptoms worsen or persist or if there are any questions or concerns that arise at home. 03/17 18:14 Order name: SARS RAPID; Complete Time: 20:06 sb4 03/17 18:14 Order name: Flu; Complete Time: 20:06 sb4 03/17 18:14 Order name: Chest Pa And Lat (2 Views) XRAY; Complete Time: 19:57 sb4 Administered Medications: 20:23 Drug: Dexamethasone IM 10 mg IM once Route: IM; Site: right gluteus; jb4 Disposition: 03/18 07:07 Co-signature as Attending Physician, Guanakito Melchor MD I reviewed the patient's care rt provided by the Advanced Practice Provider and agree with the diagnosis and treatment plan. Disposition Summary: 03/17/23 20:06 Discharge Ordered Notes: Location: Home sb4 Problem: an ongoing problem sb4 Symptoms: are unchanged sb4 Condition: Stable sb4 Diagnosis - Acute upper respiratory infection, unspecified sb4 Followup: sb4 - With: Emergency Department - When: As needed - Reason: Trouble breathing, Worsening of condition Discharge Instructions: - Discharge Summary Sheet sb4 - Upper Respiratory Infection, Adult, [id number] sb4 Forms: - Medication Reconciliation Form sb4 - Thank You Letter sb4 - Antibiotic Education sb4 - Prescription Opioid Use sb4 - Patient Portal Instructions sb4 - Leadership Thank You Letter sb4 Prescriptions: - Medrol (José Miguel) 4 mg Oral Tablets, Dose Pack - take 1 tablet ORAL route as directed - follow package instructions; 1 packet; sb4 Refills: 0, Product Selection Permitted Signatures: Dispatcher [employer] EDJun Durham, RN RN jb4 Elena Patel RN RN Virginia Barraza, PAJl PAJl sb4 Guanakito Melchor MD MD rt
--- NOTE | 2023-03-17 20:06 | ER ---
Nurse's Notes [facility] Name: Miya Emanuel Age: 77 yrs Sex: Female : 1945 Arrival Date: 03/17/2023 Time: 17:18 Bed DIS3 Private MD: Diagnosis: Acute upper respiratory infection, unspecified Presentation: 03/17 17:59 Method Of Arrival: Wheelchair db 17:59 Chief complaint: Patient states: COLD SYMPTOMS X 3 WEEKS WITH A COUGH. STATES IT IS NOT db GOING AWAY. Coronavirus screen: Client denies travel out of the [place] in the last 14 days. At this time, the client does not indicate any symptoms associated with coronavirus-19. Ebola Screen: Patient negative for fever greater than or equal to 101.5 degrees Fahrenheit, and additional compatible Ebola Virus Disease symptoms Patient denies exposure to infectious person. Patient denies travel to an Ebola-affected area in the 21 days before illness onset. No symptoms or risks identified at this time. Initial Sepsis Screen: Does the patient meet any 2 criteria? No. Patient's initial sepsis screen is negative. Does the patient have a suspected source of infection? No. Patient's initial sepsis screen is negative. Risk Assessment: Do you want to hurt yourself or someone else? Patient reports no desire to harm self or others. Onset of symptoms was March 17, 2023. 17:59 Acuity: SHIRLEY 4 db Triage Assessment: 18:00 General: Appears in no apparent distress. comfortable, Behavior is calm, cooperative. db Pain: Denies pain. EENT: Reports. Neuro: Level of Consciousness is awake, alert, obeys commands, Oriented to person, place, time, situation. Respiratory: Reports cough that is productive, Airway is patent Respiratory effort is even, unlabored, Respiratory pattern is regular, symmetrical. Historical: - PMHx: 18:00 Diabetes - NIDDM; heart attack; Hyperlipidemia; Hypertension; Hepatitis C; Myocardial db infarction; CAD; - Immunization history:: Adult Immunizations unknown, Client reports receiving the 2nd dose of the Covid vaccine. - Social history:: Smoking status: Patient denies any tobacco usage or history of. Screenin:24 [facility] ED Fall Risk Assessment (Adult) History of falling in the last 3 months, jb4 including since admission No falls in past 3 months (0 pts) Confusion or Disorientation No (0 pts). Abuse screen: Denies threats or abuse. Nutritional screening: No deficits noted. Tuberculosis screening: No symptoms or risk factors identified. Assessment: 20:24 Reassessment: Patient appears in no apparent distress at this time. Patient and/or jb4 family updated on plan of care and expected duration. Pain level reassessed. Patient is alert, oriented x 3, equal unlabored respirations, skin warm/dry/pink. Vital Signs: 17:59 BP 141 / 51; Pulse 51; Resp 18; Temp 97.3; Pulse Ox 98% ; Weight 72.57 kg; Height 5 ft. db 2 in. ; Pain 0/10; 17:59 Body Mass Index 29.26 (72.57 kg, 157.48 cm) db 17:59 Pain Scale: Adult db ED Course: 17:21 Patient arrived in ED. im 17:24 Virginia Harris [facility]C [facility] sb4 17:24 Guanakito Melchor MD is Attending Physician. sb4 18:00 Triage completed. db 18:00 Arm band placed on Patient placed in an exam room. db 19:02 Chest Pa And Lat (2 Views) XRAY In Process Unspecified. EDMS 20:24 Patient has correct armband on for positive identification. jb4 20:24 No provider procedures requiring assistance completed. Patient did not have IV access jb4 during this emergency room visit. Administered Medications: 20:23 Drug: Dexamethasone IM 10 mg IM once Route: IM; Site: right gluteus; jb4 Outcome: 20:06 Discharge ordered by MD. sb4 20:24 Discharged to home via wheelchair, with family, jb4 20:24 Condition: stable 20:24 Discharge instructions given to patient, Instructed on discharge instructions, follow up and referral plans. Demonstrated understanding of instructions, follow-up care, medications, Prescriptions given X 1, 20:26 Patient left the ED. jb4 Signatures: Dispatcher [employer] EDMS Jun Lin RN RN jb4 Elena Patel RN RN Virginia Barraza PA-C PA-C sb4 Odalys Murphy im Corrections: (The following items were deleted from the chart) 18:00 17:59 Method Of Arrival: Ambulatory db db
[2023-03-17 21:43] VITALS: BP 141/51; TEMP 97.3; O2SAT 98
== END ==
LOC: ER 17:18
DX: J06.9 Acute upper respiratory infection, unspecified (principal); Z11.52 Encounter for screening for COVID-19; E11.9 Type 2 diabetes mellitus without complications; I10 Essential (primary) hypertension
CPT/HCPCS: 36415; 87804 ×2; 71046; 96372; 99284; 87811; J1100

== ENCOUNTER 2023-03-22 16:16 | Inpatient (IN) | payer MEDICARE ==
[2023-03-22 16:48] LABS: Absolute Lymphocytes (CBC) 2.8 K/uL (0.7-4.9); Hematocrit 41.1 % (36.0-45.0); Lymphocytes % 19.1 % (15.3-44.8); MCV 83.5 fL (80-100); MPV 8.1 fL (7.6-11.3); Platelets 471 thou/uL (152-406); RBC Red Blood Cell Count 4.92 M/uL (3.86-4.86)
[2023-03-22 17:15] LABS: Albumin 2.9 g/dL (3.4-5.0); Bilirubin Direct 0.1 mg/dL (0-0.2); Bilirubin Indirect, Calculated 0.2 mg/dL (0.2-0.8); Bilirubin Total 0.3 mg/dL (0.2-1.0); Protein, Total 8.8 g/dL (6.4-8.2)
[2023-03-22 17:16] LABS: Troponin High Sensitivity 76.9 pg/mL (<58.9)
[2023-03-22 17:17] LABS: Potassium 6.7 mEq/L (3.5-5.1)
--- NOTE | 2023-03-22 17:46 | RAD REPORT ---
EXAM DESCRIPTION: RADChest Single View03/22/2023 5:38 pm CLINICAL HISTORY: upper resp infection COMPARISON: Chest Pa And Lat (2 Views) dated 03/17/2023; Abdomen 1 View (KUB) dated 08/05/2020; Chest Single View dated 09/01/2017; Chest Single View dated 06/12/2016 TECHNIQUE: Portable AP view of the chest. FINDINGS: Small right basilar airspace opacity. No pneumothorax or effusion. The cardiomediastinal contours are unchanged, with sequelae of prior CABG and tortuosity of the thoracic aorta. IMPRESSION: Small right basilar airspace opacity, may reflect atelectasis or pneumonia.
--- NOTE | 2023-03-22 19:18 | ER ---
Nurse's Notes [facility] Name: Miya Emanuel Age: 77 yrs Sex: Female : 1945 Arrival Date: 03/22/2023 Time: 16:16 Bed 6 Private MD: Diagnosis: Pneumonia, unspecified organism;Hyperkalemia Presentation: 03/22 16:21 Chief complaint: EMS states: patient had the flu, then she was diagnosed with an upper ko1 respiratory infection on Saturday. Now is feeling some chest pressure, not pain. Still has a persistent cough. Coronavirus screen: At this time, the client does not indicate any symptoms associated with coronavirus-19. Ebola Screen: No symptoms or risks identified at this time. Initial Sepsis Screen: Does the patient meet any 2 criteria? No. Patient's initial sepsis screen is negative. Does the patient have a suspected source of infection? No. Patient's initial sepsis screen is negative. Risk Assessment: Do you want to hurt yourself or someone else? Patient reports no desire to harm self or others. Onset of symptoms is unknown. 16:21 Method Of Arrival: EMS: [facility] ko1 16:21 Acuity: SHIRLEY 3 ko1 Triage Assessment: 16:23 General: Appears in no apparent distress. Behavior is calm, cooperative, appropriate ko1 for age. Pain: Denies pain. Historical: - Allergies: 16:23 No Known Allergies; ko1 - PMHx: 16:23 CAD; Diabetes - NIDDM; heart attack; Hepatitis C; Hyperlipidemia; Hypertension; ko1 Myocardial infarction; - Immunization history:: Adult Immunizations unknown. - Social history:: Smoking status: Patient denies any tobacco usage or history of. Screenin:30 [facility] ED Fall Risk Assessment (Adult) History of falling in the last 3 months, ko1 including since admission No falls in past 3 months (0 pts) Confusion or Disorientation No (0 pts) Intoxicated or Sedated No (0 pts) Impaired Gait No (0 pts) Mobility Assist Device Used No (0 pt) Altered Elimination No (0 pt) Score/Fall Risk Level 0 - 2 = Low Risk Oriented to surroundings, Maintained a safe environment, Educated pt \T\ family on fall prevention, incl call for assistance when getting out of bed, Assessed \T\ reinforced patient's understanding of fall precautions, Provided non-skid footwear, Hourly rounding (assess needs \T\ fall precautionary measures) done, Used ambulatory aids as needed (educated on \T\ assisted with), Used gait belt as appropriate. Abuse screen: Denies threats or abuse. Denies injuries from another. Nutritional screening: No deficits noted. Tuberculosis screening: No symptoms or risk factors identified. Assessment: 16:25 Neuro: No deficits noted. Cardiovascular: Reports chest pressure. Respiratory: Reports ko1 cough that is non-productive. GI: No deficits noted. : No deficits noted. EENT: No deficits noted. Derm: No deficits noted. Musculoskeletal: No deficits noted. 19:00 General: Appears in no apparent distress. comfortable, Behavior is calm, cooperative. jw7 Pain: Denies pain. Neuro: Bills Agitation-Sedation Scale (RASS): 0 - Alert and Calm Level of Consciousness is awake, alert, obeys commands, Oriented to person, place, time, situation. Cardiovascular: Reports chest pressure with cough. Respiratory: Reports cough that is non-productive. Respiratory: Airway is patent Trachea midline Respiratory effort is even, unlabored, Respiratory pattern is regular, symmetrical. 19:00 GI: No deficits noted. No signs and/or symptoms were reported involving the jw7 gastrointestinal system. : No deficits noted. No signs and/or symptoms were reported regarding the genitourinary system. EENT: No deficits noted. No signs and/or symptoms were reported regarding the EENT system. Derm: No deficits noted. No signs and/or symptoms reported regarding the dermatologic system. Musculoskeletal: No deficits noted. No signs and/or symptoms reported regarding the musculoskeletal system. 20:00 Reassessment: Patient appears in no apparent distress at this time. No changes from 7 previously documented assessment. Patient and/or family updated on plan of care and expected duration. Pain level reassessed. Patient is alert, oriented x 3, equal unlabored respirations, skin warm/dry/pink. 21:00 Reassessment: Patient appears in no apparent distress at this time. No changes from 7 previously documented assessment. Patient and/or family updated on plan of care and expected duration. Pain level reassessed. Patient is alert, oriented x 3, equal unlabored respirations, skin warm/dry/pink. 21:34 General: Report given to Mary Delaney, RN. jw7 22:00 Reassessment: Patient appears in no apparent distress at this time. No changes from jw7 previously documented assessment. Patient and/or family updated on plan of care and expected duration. Pain level reassessed. Patient is alert, oriented x 3, equal unlabored respirations, skin warm/dry/pink. 23:20 Reassessment: Patient appears in no apparent distress at this time. No changes from jw7 previously documented assessment. Patient and/or family updated on plan of care and expected duration. Pain level reassessed. Patient is alert, oriented x 3, equal unlabored respirations, skin warm/dry/pink. Vital Signs: 16:21 BP 140 / 95; Pulse 59; Resp 15; Temp 98.3; Pulse Ox 98% on R/A; ko1 17:30 BP 138 / 92; Pulse 85; Resp 16; Pulse Ox 98% ; jw7 19:00 BP 165 / 65; Pulse 57; Resp 19 S; Pulse Ox 96% on R/A; jw7 20:30 BP 105 / 82; Pulse 90; Resp 17 S; Pulse Ox 96% on R/A; jw7 21:20 BP 133 / 90; Pulse 94; Resp 26 S; Pulse Ox 100% on R/A; jw7 22:30 BP 122 / 67; Pulse 88; Resp 17 S; Pulse Ox 99% on R/A; jw7 23:30 BP 145 / 70; Pulse 85; Resp 19 S; Pulse Ox 96% on R/A; jw7 ED Course: 16:19 Patient arrived in ED. ko1 16:20 Venkatesh Narayanan MD is Attending Physician. kdr 16:21 Evie Skaggs RN is Primary Nurse. ko1 16:23 Triage completed. ko1 16:23 Arm band placed on right wrist. Patient placed in an exam room, on a stretcher, on ko1 cardiac tech, on pulse oximetry, Patient notified of wait time. 17:30 Patient has correct armband on for positive identification. Bed in low position. Call ko1 light in reach. Side rails up X2. Pulse ox on. NIBP on. Door closed. Noise minimized. 17:30 Inserted saline lock: 22 gauge in right antecubital area, using aseptic technique. ko1 Blood collected. 17:45 IV discontinued, intact, bleeding controlled, No redness/swelling at site. Pressure ko1 dressing applied. 19:15 Chapito Dubon is Hospitalizing Provider. kdr 19:25 Basic Metabolic Panel Sent. jw7 19:25 CBC with Diff Sent. jw7 19:25 LFT's Sent. jw7 19:25 NT PRO-BNP Sent. jw7 19:25 Troponin HS Sent. jw7 20:07 Notified Nurse Practitioner and/or Physician Dispensary Technician of a critical lab result(s), pf1 potassium 7.6. 20:19 Blood Culture Adult (2) Sent. jw7 23:38 No provider procedures requiring assistance completed. Patient admitted, IV remains in jw7 place. 23:39 Provided Education on: need for admit. jw7 Administered Medications: 19:45 Drug: D10 in Water IVP 250 ml IVP once Route: IVP; Site: right forearm; jw 23:45 Follow up: Response: No adverse reaction jw7 19:45 Drug: DuoNeb Nebulize (2.5 mg - 0.5 mg) 3 ml Nebulizer once Route: Nebulizer; jw 23:45 Follow up: Response: No adverse reaction jw7 19:49 Drug: Insulin Regular Human IVP 10 units IVP once {Co-Signature: bp (Timothy Whalen jw7 RN).} Route: IVP; Site: right forearm; 23:45 Follow up: Response: No adverse reaction jw7 19:50 Drug: Rocephin - Rocephin (cefTRIAXone) IVPB 1 grams IVPB once over 30 mins; (mix in 50 jw7 mL NS) Route: IVPB; Infused Over: 30 mins; Site: right forearm; 23:44 Follow up: Response: No adverse reaction; IV Status: Completed infusion; IV Intake: [id number] 20:00 Drug: Sodium Bicarbonate IVP 1 amp IVP once; (50 mL); equals 50 mEq Route: IVP; Site: [facility] right forearm; 23:45 Follow up: Response: No adverse reaction jw7 20:34 Drug: Calcium Gluconate IVPB 1 grams IVPB once over 60 mins; (mix in NS 100 mL) Route: jw7 IVPB; Infused Over: 60 mins; Site: right forearm; 23:45 Follow up: Response: No adverse reaction; IV Status: Completed infusion; IV Intake: jw7 100ml 21:00 Drug: Tussionex Pennkinetic ER PO Suspension 5 ml PO once Route: PO; jw7 23:44 Follow up: Response: No adverse reaction jw7 21:00 Drug: Kayexalate PO 45 grams PO once Route: PO; jw7 23:44 Follow up: Response: No adverse reaction jw7 21:18 Drug: NS 0.9% IV 500 ml IV at bolus once Route: IV; Rate: bolus; Site: right forearm; jw7 23:44 Follow up: Response: No adverse reaction; IV Status: Completed infusion; IV Intake: jw7 500ml Medication: 23:39 VIS not applicable for this client. jw7 Intake: 23:44 IV: 500ml; Total: 500ml. jw7 23:44 IV: 50ml; Total: 550ml. jw7 23:45 IV: 100ml; Total: 650ml. jw7 Outcome: 19:18 Decision to Hospitalize by Provider. kdr 23:38 Admitted to ICU accompanied by nurse, via stretcher, room 3, on monitor, with chart, jw7 23:38 Condition: stable 23:38 Instructed on the need for admit, Demonstrated understanding of instructions, 23:46 Patient left the ED. jw7 Signatures: Venkatesh Narayanan MD MD kdr Anna Sotelo RN RN jw7 Evie Skaggs RN RN ko1 Diane Boothe RN RN Timothy Rodriguez RN bp Corrections: (The following items were deleted from the chart) 20:35 17:30 BP 138 / 92; Pulse 15bpm; Resp 16bpm; Pulse Ox 98%; ko1 jw7
--- NOTE | 2023-03-22 19:18 | EDPHYS ---
Physician Documentation [facility] Name: Miya Emanuel Age: 77 yrs Sex: Female : 1945 Arrival Date: 03/22/2023 Time: 16:16 Bed 6 Private MD: ED Physician Venkatesh Narayanan HPI: 03/22 17:52 This 77 yrs old Black Female presents to ER via EMS with unknown complaint. kdr 17:52 Patient has had several visits to her physician and to this ED. She was last here on kdr Saturday. She was previously diagnosed with flu. And a vague undefined upper respiratory infection on Saturday. She now complains of chest congestion but denies pain. She has had a persistent cough with occasional expectorant. Patient is otherwise nontoxic-appearing. Her vital signs are stable. O2 saturation is 98%.. Onset: The symptoms/episode began/occurred gradually, Patient has had symptoms for 4 to 5 weeks. They persist. Despite being on antibiotics previously and other treatments, she continues to have upper respiratory congestion. She denies recent fever.. Severity of symptoms: At their worst the symptoms were mild in the emergency department the symptoms are unchanged. The patient has not experienced similar symptoms in the past. The patient has been recently seen by a physician: the patient's primary care provider, The patient has been recently seen at the [facility] Emergency Department, Last Saturday. Historical: - Allergies: 16:23 No Known Allergies; ko1 - PMHx: 16:23 CAD; Diabetes - NIDDM; heart attack; Hepatitis C; Hyperlipidemia; Hypertension; ko1 Myocardial infarction; - Immunization history:: Adult Immunizations unknown. - Social history:: Smoking status: Patient denies any tobacco usage or history of. ROS: 17:52 Constitutional: Negative for fever, chills, and weight loss, Eyes: Negative for injury, kdr pain, redness, and discharge, ENT: Negative for injury, pain, and discharge, Neck: Negative for injury, pain, and swelling, Abdomen/GI: Negative for abdominal pain, nausea, vomiting, diarrhea, and constipation, Back: Negative for injury and pain, : Negative for injury, bleeding, discharge, and swelling, MS/Extremity: Negative for injury and deformity, Skin: Negative for injury, rash, and discoloration, Neuro: Negative for headache, weakness, numbness, tingling, and seizure activity. Psych: Negative for depression, anxiety, suicide ideation, homicidal ideation, and hallucinations, Allergy/Immunology: Negative for hives, rash, and allergies, Endocrine: Negative for neck swelling, polydipsia, polyuria, polyphagia, and marked weight changes, Hematologic/Lymphatic: Negative for swollen nodes, abnormal bleeding, and unusual bruising, 17:52 Cardiovascular: Positive for chest pain, with cough, with movement, Negative for edema, orthopnea, palpitations, paroxysmal nocturnal dyspnea, acute changes, Exam: 17:52 Constitutional: This is a well developed, well nourished patient who is awake, alert, kdr and in no acute distress. Head/Face: Normocephalic, atraumatic. Eyes: Pupils equal round and reactive to light, extra-ocular motions intact. Lids and lashes normal. Conjunctiva and sclera are non-icteric and not injected. Cornea within normal limits. Periorbital areas with no swelling, redness, or edema. Neck: Trachea midline, no thyromegaly or masses palpated, and no cervical lymphadenopathy. Supple, full range of motion without nuchal rigidity, or vertebral point tenderness. No Meningismus. Chest/axilla: Normal chest wall appearance and motion. Nontender with no deformity. No lesions are appreciated. Cardiovascular: Regular rate and rhythm with a normal S1 and S2. No gallops, murmurs, or rubs. Normal PMI, no JVD. No pulse deficits. Abdomen/GI: Soft, non-tender, with normal bowel sounds. No distension or tympany. No guarding or rebound. No evidence of tenderness throughout. Back: No spinal tenderness. No costovertebral tenderness. Full range of motion. Female : Normal external genitalia. Skin: Warm, dry with normal turgor. Normal color with no rashes, no lesions, and no evidence of cellulitis. MS/ Extremity: Pulses equal, no cyanosis. Neurovascular intact. Full, normal range of motion. Neuro: Awake and alert, GCS 15, oriented to person, place, time, and situation. Cranial nerves II-XII grossly intact. Motor strength 5/5 in all extremities. Sensory grossly intact. Cerebellar exam normal. Normal gait. Psych: Awake, alert, with orientation to person, place and time. Behavior, mood, and affect are within normal limits. 17:52 Respiratory: mild respiratory distress is noted, Respirations: normal, Breath sounds: Vital Signs: 16:21 BP 140 / 95; Pulse 59; Resp 15; Temp 98.3; Pulse Ox 98% on R/A; ko1 17:30 BP 138 / 92; Pulse 85; Resp 16; Pulse Ox 98% ; jw7 19:00 BP 165 / 65; Pulse 57; Resp 19 S; Pulse Ox 96% on R/A; jw7 20:30 BP 105 / 82; Pulse 90; Resp 17 S; Pulse Ox 96% on R/A; jw7 21:20 BP 133 / 90; Pulse 94; Resp 26 S; Pulse Ox 100% on R/A; jw7 22:30 BP 122 / 67; Pulse 88; Resp 17 S; Pulse Ox 99% on R/A; jw7 23:30 BP 145 / 70; Pulse 85; Resp 19 S; Pulse Ox 96% on R/A; jw7 MDM: 17:52 Data reviewed: vital signs, nurses notes, old medical records, EKG. [facility] 19:18 Patient medically screened. [facility] 03/22 16:30 Order name: Basic Metabolic Panel [facility] 03/22 16:30 Order name: CBC with Diff [facility] 03/22 16:30 Order name: LFT's [facility] 03/22 16:30 Order name: NT PRO-BNP [facility] 03/22 16:30 Order name: Troponin HS [facility] 03/22 16:49 Order name: CBC with Automated Diff; Complete Time: 18:21 EDMN 03/22 17:17 Order name: Basic Metabolic Panel; Complete Time: 18:21 [facility] 03/22 17:17 Order name: Liver (Hepatic) Function; Complete Time: 18:21 [facility] 03/22 17:17 Order name: Troponin High Sensitivity; Complete Time: 18:21 EDMN 03/22 17:17 Order name: NT PRO-BNP; Complete Time: 18:21 EDMN 03/22 19:40 Order name: Blood Culture Adult (2) [facility] 03/22 19:40 Order name: Lactate w/ 2H reflex if indic.; Complete Time: 05:03 w 03/22 19:40 Order name: Potassium; Complete Time: 05:03 [facility] 03/22 19:40 Order name: Magnesium; Complete Time: 05:03 [facility] 03/22 20:06 Order name: CBC with Automated Diff EDMN 03/22 20:06 Order name: Comprehensive Metabolic Panel EDMN 03/22 20:06 Order name: Magnesium EDMN 03/22 20:06 Order name: Phosphorus EDMN 03/22 20:06 Order name: Troponin High Sensitivity EDMN 03/22 20:06 Order name: Troponin High Sensitivity; Complete Time: 05:03 EDMS 03/22 20:06 Order name: Troponin High Sensitivity EDMN 03/22 17:47 Order name: RAD; Complete Time: 18:21 EDMS 03/22 16:30 Order name: EKG; Complete Time: 19:12 kdr 03/22 16:30 Order name: Cardiac monitoring; Complete Time: 16:30 kdr 03/22 16:30 Order name: EKG - Nurse/Tech; Complete Time: 16:53 kdr 03/22 16:30 Order name: IV Saline Lock; Complete Time: 16:41 kdr 03/22 16:30 Order name: Labs collected and sent; Complete Time: 16:40 kdr 03/22 16:30 Order name: O2 Per Protocol; Complete Time: 16:30 kdr 03/22 16:30 Order name: O2 Sat Monitoring; Complete Time: 16:30 kdr 03/22 20:30 Order name: Black; Complete Time: 21:17 km8 Administered Medications: 19:45 Drug: D10 in Water IVP 250 ml IVP once Route: IVP; Site: right forearm; jw7 23:45 Follow up: Response: No adverse reaction jw7 19:45 Drug: DuoNeb Nebulize (2.5 mg - 0.5 mg) 3 ml Nebulizer once Route: Nebulizer; [facility] 23:45 Follow up: Response: No adverse reaction jw7 19:49 Drug: Insulin Regular Human IVP 10 units IVP once {Co-Signature: bp (Timothy Whalen jw7 RN).} Route: IVP; Site: right forearm; 23:45 Follow up: Response: No adverse reaction jw7 19:50 Drug: Rocephin - Rocephin (cefTRIAXone) IVPB 1 grams IVPB once over 30 mins; (mix in 50 jw7 mL NS) Route: IVPB; Infused Over: 30 mins; Site: right forearm; 23:44 Follow up: Response: No adverse reaction; IV Status: Completed infusion; IV Intake: [id number] 20:00 Drug: Sodium Bicarbonate IVP 1 amp IVP once; (50 mL); equals 50 mEq Route: IVP; Site: [facility] right forearm; 23:45 Follow up: Response: No adverse reaction [facility] 20:34 Drug: Calcium Gluconate IVPB 1 grams IVPB once over 60 mins; (mix in NS 100 mL) Route: jw7 IVPB; Infused Over: 60 mins; Site: right forearm; 23:45 Follow up: Response: No adverse reaction; IV Status: Completed infusion; IV Intake: jw7 100ml 21:00 Drug: Tussionex Pennkinetic ER PO Suspension 5 ml PO once Route: PO; jw 23:44 Follow up: Response: No adverse reaction [facility] 21:00 Drug: Kayexalate PO 45 grams PO once Route: PO; jw7 :44 Follow up: Response: No adverse reaction [facility] 21:18 Drug: NS 0.9% IV 500 ml IV at bolus once Route: IV; Rate: bolus; Site: right forearm; [facility] :44 Follow up: Response: No adverse reaction; IV Status: Completed infusion; IV Intake: jw7 500ml Disposition Summary: 03/22/23 19:18 Hospitalization Ordered Notes: Hospitalization Status: Inpatient Admission kdr Provider: Chapito Dubon Location: Intensive Care Unit kdr Condition: Serious kdr Problem: new kdr Symptoms: have improved kdr Bed/Room Type: Standard kdr Room Assignment: 3-(03/22/23 20:47) cg Diagnosis - Pneumonia, unspecified organism kdr - Hyperkalemia kdr Forms: - Medication Reconciliation Form kdr - SBAR form kdr - Leadership Thank You Letter kdr Signatures: Dispatcher [employer] EDMS Venkatesh Narayanan MD MD kdr Mildred Roberts FNP-C DRY [employer]-Ingrid Engle RN RN cg Anna Sotelo RN RN jw7 Evie Skaggs, RN RN ko1 Tammy Parsons, JALIL RN [id number] Timothy Whalen RN bp Corrections: (The following items were deleted from the chart) 19:35 19:12 Chest Single View+RAD.[email or web address].[email or web address] ordered. EDMN EDMN 20:47 19:18 kdr cg
[2023-03-22] MEDS ORDERED: CEFTRIAXONE 1000 MG/VIAL ONE (19:34)
[2023-03-22] MEDS ORDERED: IPRATROPIUM BROM 0.5MG/2.5ML ONE (19:34)
[2023-03-22] MEDS ORDERED: ALBUTEROL 2.5 MG/3 ML NEB SOL ONE (19:34)
[2023-03-22] MEDS ORDERED: INSULIN REGULAR (HUMAN) 100 UNIT/ML ONE ×2 (19:35→23:53)
[2023-03-22] MEDS ORDERED: NA CHLORIDE 0.9% 50 ML ONE (19:35)
[2023-03-22] MEDS ORDERED: CALCIUM GLUCONATE 1 GM IVPB 1 GM/50 ML BAG IV ONE ×2 (19:36→21:45)
[2023-03-22] MEDS ORDERED: D10W 250 ML IV ONE (19:36)
[2023-03-22] MEDS ORDERED: PROMETHAZINE 25 MG/SUPP PR PRN (19:48)
[2023-03-22 20:06] LABS: Magnesium 1.9 mg/dL (1.6-2.4)
[2023-03-22 20:08] LABS: Potassium 7.6 mEq/L (3.5-5.1)
[2023-03-22] MEDS ORDERED: SOD POLYSTYREN SUL 15 GM/60 ML UCUP ONE (20:41)
[2023-03-22] MEDS ORDERED: HYDROCODONE/CHLORPHEN 5 ML/OSYR ONE (20:41)
[2023-03-22] MEDS ORDERED: NA CHLORIDE 0.9% 500 ML ONE (20:42)
[2023-03-22] MEDS ORDERED: CEFEPIME 1 GM in NA CHLORIDE 0.9% 100 ML IV ONE (21:00)
[2023-03-22] MEDS ORDERED: GLUCAGON 1 MG/VIAL IM PRN (21:31)
[2023-03-22] MEDS ORDERED: D50W 25 GM/50 ML SYRINGE IV PRN (21:31)
[2023-03-22] MEDS ORDERED: CALCIUM GLUC 10% INJ 4.65 MEQ in NA CHLORIDE 0.9% 100 ML IV ONE (21:31)
[2023-03-22] MEDS ORDERED: INSULIN REGULAR (HUMAN) 100 UNIT/ML IV ONE (21:34)
[2023-03-22] MEDS ORDERED: D10W 125 ML IV PRN (21:40)
[2023-03-22] MEDS ORDERED: NA CHLORIDE 0.9% 500 ML IV SCH (23:45)
[2023-03-22] MEDS ORDERED: NA CHLORIDE 0.9% 1,000 ML ONE (23:54)
[2023-03-22] MEDS ORDERED: NA CHLORIDE 0.9% 100 ML ONE (23:54)
[2023-03-22] MEDS ORDERED: CEFEPIME 1 GM/VIAL ONE (23:54)
[2023-03-22] MEDS: INSULIN REGULAR (HUMAN) 100 UNIT/ML SQ SCH (23:56)
[2023-03-22] MEDS: NA CHLORIDE 0.9% 1,000 ML IV SCH (23:56)
[2023-03-23] MEDS: ALBUTEROL 2.5 MG/3 ML NEB SOL NEB SCH ×2 (00:16→08:14)
[2023-03-23] MEDS ORDERED: CALCIUM GLUCONATE 1 GM IVPB 1 GM/50 ML BAG IV ONE (00:18)
[2023-03-23] MEDS ORDERED: HEPARIN 5000 UNIT/ML 1 ML VIAL ONE (00:19)
[2023-03-23] MEDS ORDERED: HEPARIN 5000 UNIT/ML 1 ML VIAL SQ SCH (01:00)
--- NOTE | 2023-03-23 04:50 | P.HP ---
Certification for Inpatient Patient admitted to: Inpatient With expected LOS: >2 Midnights Patient will require the following post-hospital care: None Practitioner: I am a practitioner with admitting privileges, knowledge of patient current condition, hospital course, and medical plan of care. Services: Services provided to patient in accordance with Admission requirements found in Title 42 Section 412.3 of the Code of Federal Regulations Patient History Date of Service: 03/23/23 Reason for admission: chest pain, hyperkalemia, shortness of breath, elevated troponin History of Present Illness: Ms. Emanuel is a 77 yo with a past medical history of HTN, HLD, CHF, CVA, NIDDM who was treated for an upper respiratory infection on 03/17/23 with Zithromax and a shot of antibiotics at an outside facility. She had a renal ultrasound on 03/20/23 that was normal. Today she presents to [facility] ED with chest pain, cough, and shortness of breath. Her x-ray reveals a small right lower lobe pneumonia. EKG was significant for bradycardia and peaked T waves. Her initial serum potassium at 1635 returned at 6.7. She was to be given calcium gluconate, d50, insulin and she was admitted to . On my assessment Ms. Emanuel did not have an IV, had not received the ordered medications except for some neb treatments. I started a 22g to the right forearm, tamara blood for a lactate and blood cultures and a repeat potassium and inital magnesium level. Ms. Emanuel received the above medications, a 500 ml NS bolus, Kayexalate 45grams po, and NS at 100ml/hr. Her second potassium level returned at 7.6. Dr. Rivas was contacted for consultation. Ms. Emanuel will be admitted to ICU for evaluation and treatment. Allergies No Known Drug Allergies Allergy (Verified 06/21/15 11:58) Unknown Home medications list reviewed: Yes Home Medications: Iron 65 mg PO DAILY 05/25/14 carvediloL [Coreg*] 12.5 mg PO BID 05/25/14 Aspirin [Adult Low Dose Aspirin EC] 81 mg PO DAILY 06/21/15 Clopidogrel Bisulfate [Plavix*] 75 mg PO DAILY 06/21/15 Nitroglycerin [Nitrostat] 0.4 mg SL PRN PRN 06/21/15 Amlodipine [Norvasc*] 5 mg PO DAILY 03/23/23 Atorvastatin Calcium [Lipitor] 40 mg PO BEDTIME 03/23/23 Cholecalciferol (Vitamin D3) [D3-50] 1 tab PO DAILY 03/23/23 Doxepin HCl [Sinequan*] 25 mg PO BEDTIME 03/23/23 Insulin Aspart [Novolog Flexpen] 4 units SQ SEECOM 03/23/23 Insulin Degludec [Tresiba Flextouch U-200] 35 units SQ DAILY 03/23/23 Lisinopril [Zestril] 20 mg PO DAILY 03/23/23 Mv-Min/Iron/Folic/Calcium/Vitk [Women's Multivitamin Tablet] 1 tab PO DAILY 03/23/23 Spironolactone 50 mg PO DAILY 03/23/23 Vitamin E [Vitamin E*] 1 tab PO DAILY 03/23/23 - Past Medical/Surgical History Has patient received pneumonia vaccine in the past: Yes Diabetic: Yes -: DIABETES-NIDDM -: HIGH CHOLESTEROL -: HEPATITIS C -: HTN -: hyperlipidemia -: NH -: cva -: TRIPLE BYPASS -: right upper leg stent -: right lower leg stent Psychosocial/ Personal History: Lives at home, speaking on phone to her Brother - Family History Mother -: Heart disease, Hypertension, Diabetes, Other (see notes) Notes: DEMENTIA Father -: Heart disease, Diabetes, Other (see notes) Notes: HEART ATTACK - Social History Smoking Status: Former smoker Alcohol use: No CD- Drugs: No Caffeine use: Yes Place of Residence: Home Review of Systems 10-point ROS is otherwise unremarkable General: As per HPI Respiratory: Cough, Shortness of Breath, As per HPI Cardiovascular: Chest Pain, As per HPI Physical Examination - Vital Signs Temperature: 98.2 F Blood Pressure: 146/70 Pulse: 71 Respirations: 18 Pulse Ox (%): 100 - Physical Exam General: Alert, Oriented x3 HEENT: Atraumatic, Normocephalic, PERRLA Neck: Supple, 2+ carotid pulse no bruit Respiratory: Normal air movement, Crackles/rales, Other (dry cough) Cardiovascular: No edema, Other (bradycardia, peaked T waves on 12 lead) Capillary refill: <2 Seconds Gastrointestinal: Soft and benign Musculoskeletal: No clubbing Integumentary: No rashes Neurological: Normal speech, Normal tone External genitalia: Deferred Rectal: Deferred - Studies Laboratory Data (last 24 hrs) 03/22/23 03/22/23 03/22/23 19:40 16:35 16:35 WBC 14.80 H Hgb 13.4 Hct 41.1 Plt Count 471 H Sodium 124 L Potassium 7.6 H* D 6.7 H* BUN 46 H Creatinine 1.65 H Glucose 371 H Magnesium 1.9 Total Bilirubin 0.3 AST 15 ALT 24 Alkaline Phosphatase 84 03/22/23 03/22/23 16:30 16:30 WBC Cancelled Hgb Cancelled Hct Cancelled Plt Count Cancelled Sodium Cancelled Potassium Cancelled BUN Cancelled Creatinine Cancelled Glucose Cancelled Magnesium Total Bilirubin Cancelled AST Cancelled ALT Cancelled Alkaline Phosphatase Cancelled Assessment and Plan - Problems (Diagnosis) (1) Hyperkalemia with normal acid-base balance Current Visit: Yes Status: Acute Plan: Temporizing medication regimen - Calcium Gluconate, D50, Insulin, Kayexalate Black with I&O NS bolus and maintenance trend potassium level Monitor telemetry Consult Nephrology OTC ingestion/supplements? (2) COPD exacerbation Onset Date: 05/25/14 Current Visit: Yes Status: Acute Plan: COPD with lower respiratory tract pneumonia Neb treatments Antibiotics O2 prn Tussionex 5ml po x 1 Monitor VS, observe for hypoxia (3) Chest pain, rule out acute myocardial infarction Current Visit: Yes Status: Acute Plan: trend troponins, elevation likely demand ischemia closely monitor telemetry, bradycardia and peaked T-waves likely electrolyte derangement effects (4) Pneumonia Current Visit: Yes Status: Acute Plan: Follow blood cultures O2 per protocol neb treatments antibiotics Qualifiers: Laterality: right - Advance Directives Does patient have a Living Will: No Does patient have a Durable POA for Healthcare: Yes
[2023-03-23] MEDS: NA CHLORIDE 0.9% 1,000 ML IV SCH (06:00)
[2023-03-23 07:02] LABS: Absolute Lymphocytes (CBC) 4.6 K/uL (0.7-4.9); Hematocrit 37.7 % (36.0-45.0); Lymphocytes % 35.9 % (15.3-44.8); MCV 82.7 fL (80-100); MPV 7.6 fL (7.6-11.3); Platelets 446 thou/uL (152-406); RBC Red Blood Cell Count 4.56 M/uL (3.86-4.86)
[2023-03-23 07:21] LABS: Albumin 2.5 g/dL (3.4-5.0); Bilirubin Total 0.3 mg/dL (0.2-1.0); Magnesium 1.5 mg/dL (1.6-2.4); Phosphorus 4.3 mg/dL (2.5-4.9); Potassium 5.1 mEq/L (3.5-5.1); Protein, Total 7.5 g/dL (6.4-8.2)
[2023-03-23 07:22] LABS: Troponin High Sensitivity 75.9 pg/mL (<58.9)
[2023-03-23] MEDS: INSULIN REGULAR (HUMAN) 100 UNIT/ML SQ SCH (07:30)
[2023-03-23] MEDS ORDERED: IPRATROPIUM BROM 0.5MG/2.5ML ONE (08:05)
[2023-03-23] MEDS: CEFEPIME 1 GM in NA CHLORIDE 0.9% 100 ML IV SCH ×2 (12:00→20:16)
--- NOTE | 2023-03-23 12:03 | P.PN ---
Subjective Date of Service: 03/23/23 Chief Complaint: chest pain, hyperkalemia, shortness of breath, elevated troponin Patient has been coughing intermittently. Potassium level improved overnight Patient has no new complaint. She has been stable on room air. Physical Examination - Vital Signs Temperature: 98.2 F Blood Pressure: 124/59 Pulse: 78 Respirations: 20 Pulse Ox (%): 100 - Physical Exam General: Alert, In no apparent distress, Oriented x3 HEENT: Mucous membr. moist/pink, Sclerae nonicteric Neck: Supple, JVD not distended Respiratory: Clear to auscultation bilaterally, Normal air movement Cardiovascular: No edema, Regular rate/rhythm, Normal S1 S2, No murmurs Gastrointestinal: Normal bowel sounds, Soft and benign, Non-distended, No tenderness Musculoskeletal: No swelling Integumentary: No rashes, No cyanosis Neurological: Normal strength at 5/5 x4 extr - Studies Laboratory Data (last 24 hrs) 03/22/23 03/22/23 03/22/23 19:40 16:35 16:35 WBC 14.80 H Hgb 13.4 Hct 41.1 Plt Count 471 H Sodium 124 L Potassium 7.6 H* D 6.7 H* BUN 46 H Creatinine 1.65 H Glucose 371 H Magnesium 1.9 Total Bilirubin 0.3 AST 15 ALT 24 Alkaline Phosphatase 84 03/22/23 03/22/23 16:30 16:30 WBC Cancelled Hgb Cancelled Hct Cancelled Plt Count Cancelled Sodium Cancelled Potassium Cancelled BUN Cancelled Creatinine Cancelled Glucose Cancelled Magnesium Total Bilirubin Cancelled AST Cancelled ALT Cancelled Alkaline Phosphatase Cancelled Assessment And Plan - Current Problems (Diagnosis) (1) Pneumonia Current Visit: Yes Status: Acute Qualifiers: Laterality: right (2) Hyperkalemia with normal acid-base balance Current Visit: Yes Status: Acute (3) Type 2 diabetes mellitus Current Visit: Yes Status: Acute (4) COPD exacerbation Onset Date: 05/25/14 Current Visit: Yes Status: Acute (5) Elevated troponin Current Visit: Yes Status: Acute (6) Acute kidney injury Current Visit: Yes Status: Acute - Plan Hyperkalemia/HECTOR Cause of hyperkalemia is unclear. Probably related to HECTOR. Potassium level improved after Kayexalate and other potassium lowering measures. Medically stable. Serum creatinine improved with IV hydration.. Nephrology consulted Continue to monitor renal function and electrolytes Low potassium diet. Hold lisinopril and Aldactone Pneumonia/COPD exacerbation Failed outpatient treatment Continue IV antibiotics-IV cefepime and Zithromax Bronchodilators Chest physiotherapy. Elevated troponin/coronary artery disease Troponin trended flat and likely secondary to demand ischemia No ACS. Resume home medications for CAD-aspirin, Plavix, lipitor and Coreg. Essential Hypertension Resume home dose Coreg and amlodipine. DVT prophylaxis: Heparin SQ
[2023-03-23] MEDS ORDERED: HOME MED 1 EA UNK (Insulin Aspart [Novolog Flexpen] 100 UNIT/ML Insuln.Pen) SQ SCH (12:15)
[2023-03-23] MEDS ORDERED: AZITHROMYCIN 500 MG INJ IVPB ONE (13:41)
[2023-03-23] MEDS ORDERED: NA CHLORIDE 0.9% 100 ML ONE (13:42)
[2023-03-23] MEDS: AZITHROMYCIN IV 500 MG in NA CHLORIDE 0.9% 250 ML IVPB SCH (14:00)
[2023-03-23] MEDS ORDERED: NA CHLORIDE 0.9% 250 ML ONE (14:01)
[2023-03-23] MEDS ORDERED: INSULIN LISPRO 100 UNIT/ML ONE (16:17)
[2023-03-23] MEDS: INSULIN LISPRO 100 UNIT/ML SQ SCH (16:19)
[2023-03-23] MEDS ORDERED: MAGNESIUM SULFATE 1 gm IVPB 1 GM/100 ML BAG IV ONE (19:56)
[2023-03-23] MEDS: carvediloL 12.5 MG TAB PO SCH (20:16)
[2023-03-23] MEDS: ATORVASTATIN 40 MG TAB PO SCH (20:16)
[2023-03-23] MEDS: DOXEPIN HCL 25 MG CAP PO SCH (20:17)
[2023-03-24] MEDS ORDERED: CEFEPIME 1 GM in NA CHLORIDE 0.9% 100 ML IV SCH ×2
[2023-03-24 04:47] LABS: Absolute Lymphocytes (CBC) 4.3 K/uL (0.7-4.9); Hematocrit 36.4 % (36.0-45.0); Lymphocytes % 44.1 % (15.3-44.8); MCV 83.5 fL (80-100); MPV 7.9 fL (7.6-11.3); Platelets 396 thou/uL (152-406); RBC Red Blood Cell Count 4.36 M/uL (3.86-4.86)
[2023-03-24 05:06] LABS: Potassium 4.4 mEq/L (3.5-5.1)
[2023-03-24] MEDS ORDERED: ACETAMINOPHEN 325 MG TABLET PO PRN (05:45)
[2023-03-24 07:53] VITALS: BMI 27.2
[2023-03-24] MEDS: AMLODIPINE 5 MG TAB PO SCH (08:41)
[2023-03-24] MEDS: carvediloL 12.5 MG TAB PO SCH ×2 (08:41→20:41)
[2023-03-24] MEDS: CEFEPIME 1 GM in NA CHLORIDE 0.9% 100 ML IV SCH ×2 (08:41→20:44)
[2023-03-24] MEDS ORDERED: INSULIN LISPRO 100 UNIT/ML ONE (08:54)
[2023-03-24] MEDS ORDERED: ASPIRIN 81 MG CHEWABLE TABLET ONE (08:55)
[2023-03-24] MEDS ORDERED: CLOPIDOGREL 75 MG TABLET ONE (08:55)
[2023-03-24] MEDS ORDERED: VITAMIN D 1000 UNIT TAB ONE (08:56)
[2023-03-24] MEDS ORDERED: Multi-VIT(Centravite Senior) 1 TAB TAB ONE (08:56)
[2023-03-24] MEDS ORDERED: INSULIN GLARGINE 100 UNIT/ML SQ ONE (08:56)
[2023-03-24] MEDS ORDERED: NA CHLORIDE 0.9% 250 ML ONE (08:57)
[2023-03-24] MEDS ORDERED: AZITHROMYCIN 500 MG INJ IVPB ONE (08:57)
[2023-03-24] MEDS ORDERED: HOME MED 1 EA UNK (Iron [Iron] 18 MG Tablet) PO SCH (09:00)
[2023-03-24] MEDS ORDERED: HOME MED 1 EA UNK (Insulin Degludec [Tresiba Flextouch U-200] 200 UNIT/ML Insuln.Pen) SQ SCH (09:00)
[2023-03-24] MEDS: ASPIRIN EC 81 MG TAB PO SCH (09:00)
[2023-03-24] MEDS ORDERED: ASPIRIN 81 MG PO SCH (09:00)
[2023-03-24] MEDS: VITAMIN D 5,000 UNIT CAP PO SCH (09:00)
[2023-03-24] MEDS ORDERED: HOME MED 1 EA UNK (Cholecalciferol (Vitamin D3) [D3-50] 1,250 MCG Capsule) PO SCH (09:00)
[2023-03-24] MEDS ORDERED: HOME MED 1 EA UNK (Mv-Min/Iron/Folic/Calcium/Vitk [Women's Multivitamin Tablet] Tablet) PO SCH (09:00)
[2023-03-24] MEDS: VITAMIN E 400 IU CAP PO SCH (09:00)
[2023-03-24] MEDS: FERROUS SULFATE 325 MG TAB PO SCH (09:00)
[2023-03-24] MEDS: CLOPIDOGREL 75 MG TABLET PO SCH (09:01)
[2023-03-24] MEDS: Multi-VIT(Centravite Senior) 1 TAB TAB PO SCH (09:01)
[2023-03-24] MEDS: AZITHROMYCIN IV 500 MG in NA CHLORIDE 0.9% 250 ML IVPB SCH (09:02)
[2023-03-24] MEDS: HEPARIN 5000 UNIT/ML 1 ML VIAL SQ SCH ×2 (09:06→17:22)
[2023-03-24] MEDS: INSULIN GLARGINE 100 UNIT/ML SQ SCH (09:06)
[2023-03-24] MEDS: INSULIN LISPRO 100 UNIT/ML SQ SCH ×3 (09:07→17:21)
--- NOTE | 2023-03-24 11:59 | P.PN ---
Subjective Date of Service: 03/24/23 Chief Complaint: chest pain, hyperkalemia, shortness of breath, elevated troponin Patient has been coughing intermittently. Overall states he feels better. She reports poor night sleep No recorded fever. Physical Examination - Vital Signs Temperature: 98.1 F Blood Pressure: 128/71 Pulse: 78 Respirations: 19 Pulse Ox (%): 96 - Physical Exam General: Alert, In no apparent distress, Oriented x3 HEENT: Mucous membr. moist/pink Neck: Supple, JVD not distended Respiratory: Normal air movement, Crackles/rales (Mild bibasilar crackles) Cardiovascular: No edema, Regular rate/rhythm, Normal S1 S2 Gastrointestinal: Normal bowel sounds, Soft and benign, Non-distended Musculoskeletal: No swelling Integumentary: No rashes, No cyanosis Neurological: Normal strength at 5/5 x4 extr Assessment And Plan - Current Problems (Diagnosis) (1) Pneumonia Current Visit: Yes Status: Acute Qualifiers: Laterality: right (2) Hyperkalemia with normal acid-base balance Current Visit: Yes Status: Acute (3) Type 2 diabetes mellitus Current Visit: Yes Status: Acute (4) COPD exacerbation Onset Date: 05/25/14 Current Visit: Yes Status: Acute (5) Elevated troponin Current Visit: Yes Status: Acute (6) Acute kidney injury Current Visit: Yes Status: Acute - Plan Hyperkalemia/HECTOR Hyperkalemia resolved. Hyperkalemia likely secondary to Aldactone and lisinopril use. Medically stable. Serum creatinine improved with IV hydration.. Nephrology consulted Continue to monitor renal function and electrolytes Low potassium diet. Lisinopril and Aldactone are on hold Pneumonia/COPD exacerbation Failed outpatient treatment Continue IV antibiotics-IV cefepime and Zithromax Bronchodilators Chest physiotherapy. Elevated troponin/coronary artery disease Troponin trended flat and likely secondary to demand ischemia No ACS. Continue home medications for CAD-aspirin, Plavix, lipitor and Coreg. Essential Hypertension Continue home dose Coreg and amlodipine. DVT prophylaxis: Heparin SQ
[2023-03-24] MEDS: ATORVASTATIN 40 MG TAB PO SCH (20:41)
[2023-03-24] MEDS: DOXEPIN HCL 25 MG CAP PO SCH (20:41)
[2023-03-24 22:23] VITALS: O2SAT 99
[2023-03-24] MEDS ORDERED: TRAZODONE 50 MG TABLET PO PRN (23:33)
[2023-03-25] MEDS: HEPARIN 5000 UNIT/ML 1 ML VIAL SQ SCH ×2 (01:10→09:20)
[2023-03-25] MEDS: VITAMIN E 400 IU CAP PO SCH (09:00)
[2023-03-25] MEDS: CEFEPIME 1 GM in NA CHLORIDE 0.9% 100 ML IV SCH (09:16)
[2023-03-25] MEDS: VITAMIN D 5,000 UNIT CAP PO SCH (09:17)
[2023-03-25] MEDS: CLOPIDOGREL 75 MG TABLET PO SCH (09:17)
[2023-03-25] MEDS: Multi-VIT(Centravite Senior) 1 TAB TAB PO SCH (09:17)
[2023-03-25] MEDS: carvediloL 12.5 MG TAB PO SCH (09:18)
[2023-03-25] MEDS: FERROUS SULFATE 325 MG TAB PO SCH (09:18)
[2023-03-25] MEDS: INSULIN GLARGINE 100 UNIT/ML SQ SCH (09:18)
[2023-03-25] MEDS: INSULIN LISPRO 100 UNIT/ML SQ SCH ×2 (09:18→11:30)
[2023-03-25] MEDS: ASPIRIN EC 81 MG TAB PO SCH (09:18)
[2023-03-25] MEDS: AMLODIPINE 5 MG TAB PO SCH (09:18)
[2023-03-25] MEDS: AZITHROMYCIN IV 500 MG in NA CHLORIDE 0.9% 250 ML IVPB SCH (09:19)
--- NOTE | 2023-03-25 09:20 | P.DS ---
Admission Date: 03/22/23 Discharge Date: 03/25/23 Disposition: ROUTINE DISCHARGE Discharge Condition: FAIR Reason for Admission: chest pain, hyperkalemia, shortness of breath, elevated troponin - Problems (1) Pneumonia Current Visit: Yes Status: Acute Qualifiers: Laterality: right (2) Hyperkalemia with normal acid-base balance Current Visit: Yes Status: Acute (3) Type 2 diabetes mellitus Current Visit: Yes Status: Acute (4) COPD exacerbation Onset Date: 05/25/14 Current Visit: Yes Status: Acute (5) Elevated troponin Current Visit: Yes Status: Acute (6) Acute kidney injury Current Visit: Yes Status: Acute Brief History of Present Illness: Ms. Emanuel is a 77 yo with a past medical history of HTN, HLD, CHF, CVA, NIDDM who was treated for an upper respiratory infection on 03/17/23 with Zithromax and a shot of antibiotics at an outside facility. She had a renal ultrasound on 03/20/23 that was normal. She presented to [facility] ED with chest pain, cough, and shortness of breath. Her x-ray reveals a small right lower lobe pneumonia. EKG was significant for bradycardia and peaked T waves. Her initial serum potassium at 1635 returned at 6.7. Ms. Emanuel received emergency hyperkalemia treatment including calcium gluconate, IV insulin and glucose, a 500 ml NS bolus, Kayexalate 45grams po, and NS at 100ml/hr. Her second potassium level returned at 7.6. Dr. Rivas was contacted for consultation and patient admitted to ICU for evaluation and treatment. Hospital Course: Patient admitted to the medical floor and the following medical problems addressed: Hyperkalemia/HECTOR Hyperkalemia resolved with IV hydration and emergent hyperkalemia treatment with Kayexalate, calcium gluconate, IV insulin and dextrose. Hyperkalemia likely secondary to Aldactone and lisinopril use. Medically stable. Serum creatinine also improved with IV hydration and remained stable Low potassium diet recommended. Aldactone discontinued. Lisinopril resumed on discharge. Pneumonia/COPD exacerbation Failed outpatient treatment Patient treated with IV antibiotics-IV cefepime and Zithromax Given bronchodilators. Patient respiratory condition is clinically improved. She is discharged with oral Levaquin to continue treatment for pneumonia. Elevated troponin/coronary artery disease Troponin trended flat and likely secondary to demand ischemia No ACS. Continued home medications for CAD-aspirin, Plavix, lipitor and Coreg. She will follow-up with cardiology as outpatient for evaluation for possible stress test. Essential Hypertension Continued home dose Coreg and amlodipine. Vital Signs/Physical Exam: Temp Pulse Resp BP Pulse Ox 97.0 F 82 16 154/64 H 100 03/25/23 08:00 03/25/23 08:00 03/25/23 08:00 03/25/23 08:00 03/25/23 08:00 General: Alert, In no apparent distress, Oriented x3 HEENT: Mucous membr. moist/pink Neck: Supple, JVD not distended Respiratory: Clear to auscultation bilaterally, Normal air movement Cardiovascular: No edema, Regular rate/rhythm, Normal S1 S2 Gastrointestinal: Normal bowel sounds, Soft and benign, Non-distended, No tenderness Musculoskeletal: No swelling, No tenderness Integumentary: No rashes Neurological: Normal gait, Normal strength at 5/5 x4 extr Laboratory Data at Discharge: WBC 9.80 thou/uL (4.3-10.9) 03/24/23 04:26 Hgb 12.0 g/dL (12.0-15.0) 03/24/23 04:26 Hct 36.4 % (36.0-45.0) 03/24/23 04:26 Plt Count 396 thou/uL (152-406) 03/24/23 04:26 Sodium 135 mEq/L (136-145) L 03/24/23 04:26 Potassium 4.4 mEq/L (3.5-5.1) D 03/24/23 04:26 BUN 31 mg/dL (7-18) H 03/24/23 04:26 Creatinine 1.29 mg/dL (0.55-1.02) H 03/24/23 04:26 Glucose 169 mg/dL (74-106) H 03/24/23 04:26 Phosphorus 4.3 mg/dL (2.5-4.9) 03/23/23 06:54 Magnesium 1.5 mg/dL (1.6-2.4) L 03/23/23 06:54 Total Bilirubin 0.3 mg/dL (0.2-1.0) 03/23/23 06:54 AST 7 U/L (15-37) L 03/23/23 06:54 ALT 18 U/L (13-56) 03/23/23 06:54 Alkaline Phosphatase 68 U/L (45-117) 03/23/23 06:54 Home Medications: Iron 65 mg PO DAILY 05/25/14 carvediloL [Coreg*] 12.5 mg PO BID 05/25/14 Aspirin [Adult Low Dose Aspirin EC] 81 mg PO DAILY 06/21/15 Clopidogrel Bisulfate [Plavix*] 75 mg PO DAILY 06/21/15 Nitroglycerin [Nitrostat] 0.4 mg SL PRN PRN 06/21/15 Amlodipine [Norvasc*] 5 mg PO DAILY 03/23/23 Atorvastatin Calcium [Lipitor] 40 mg PO BEDTIME 03/23/23 Cholecalciferol (Vitamin D3) [D3-50] 1 tab PO DAILY 03/23/23 Doxepin HCl [Sinequan*] 25 mg PO BEDTIME 03/23/23 Insulin Aspart [Novolog Flexpen] 4 units SQ SEECOM 03/23/23 Insulin Degludec [Tresiba Flextouch U-200] 35 units SQ DAILY 03/23/23 Lisinopril [Zestril] 20 mg PO DAILY 03/23/23 Mv-Min/Iron/Folic/Calcium/Vitk [Women's Multivitamin Tablet] 1 tab PO DAILY 03/23/23 Vitamin E [Vitamin E*] 1 tab PO DAILY 03/23/23 levoFLOXacin [Levaquin] 750 mg PO DAILY #5 tab 03/25/23 New Medications: levoFLOXacin [Levaquin] 750 mg PO DAILY #5 tab Diet: AHA Activity: Ad mirian Followup: Garland Mcknight MD [ACTIVE - CAN ADMIT] - 1-2 Weeks (Please call office for arrangement for outpatient stress test) Time spent managing pt's care (in minutes): 32
[2023-03-25 14:30] VITALS: BP 133/61; TEMP 97.8
--- NOTE | 2023-03-29 14:03 | EKG ---
Test Date: 2023-03-22 Test Time: 16:47:27 Sole Rounding Machine Operator: GURWINDER MEASUREMENT RESULTS: Intervals: Rate: 51 AL: 146 QRSD: 100 QT: 398 QTc: 366 Iselin: P: 35 AL: 146 QRS: 41 T: -11 INTERPRETIVE STATEMENTS: Sinus bradycardia with sinus arrhythmia Otherwise normal ECG Compared to ECG 09/01/2017 20:55:51 Sinus rhythm no longer present Myocardial infarct finding no longer present Electronically Signed On 03-29-23 13:47:55 FEEDER TENDER by Garland Mcknight
== END 2023-03-25 16:20 | disposition home or self-care (01) | DRG 682 ==
LOC: ER 16:16 → ERHOLD 19:48 → 3RD-ICU 22:50 → 4TH 03-24 14:42
PROVIDERS: ADMIT Internal Medicine; ATTEND Internal Medicine
DX: N17.9 Acute kidney failure, unspecified (principal); J18.9 Pneumonia, unspecified organism; J44.0 Chronic obstructive pulmonary disease with (acute) lower respiratory infection; J44.1 Chronic obstructive pulmonary disease with (acute) exacerbation; E87.5 Hyperkalemia; E11.9 Type 2 diabetes mellitus without complications; E78.00 Pure hypercholesterolemia, unspecified; I10 Essential (primary) hypertension; I25.2 Old myocardial infarction; I25.10 Atherosclerotic heart disease of native coronary artery without angina pectoris; T50.0X5A Adverse effect of mineralocorticoids and their antagonists, initial encounter; T46.4X5A Adverse effect of angiotensin-converting-enzyme inhibitors, initial encounter; R77.8 Other specified abnormalities of plasma proteins; Z79.4 Long term (current) use of insulin; Z86.73 Personal history of transient ischemic attack (TIA), and cerebral infarction without residual deficits; Z79.82 Long term (current) use of aspirin; Z79.02 Long term (current) use of antithrombotics/antiplatelets; Z79.899 Other long term (current) drug therapy; Z87.891 Personal history of nicotine dependence
CPT/HCPCS: 36415; 71045; 76770; 80048; 80053; 80076; 82947; 83605; 83735; 83880; 84100; 84132; 84484; 85025; 87040; 93005; 94640; 96365; 96366; 96375; 99285; J0612; J0692; J0696; J1644; J1815; J3475; J7030; J7040; J7050; J7613; J7644

== ENCOUNTER → 2023-05-14 | Emergency (ER) | payer MEDICARE ==
[2023-05-14 11:49] LABS: Absolute Lymphocytes (CBC) 1.6 K/uL (0.7-4.9); Hematocrit 34.3 % (36.0-45.0); Lymphocytes % 37.7 % (15.3-44.8); MCV 86.3 fL (80-100); MPV 9.6 fL (7.6-11.3); Platelets 253 thou/uL (152-406); RBC Red Blood Cell Count 3.97 M/uL (3.86-4.86)
[2023-05-14 12:05] LABS: Potassium 5.2 mEq/L (3.5-5.1)
--- NOTE | 2023-05-14 14:11 | ER ---
Nurse's Notes [facility] Name: Miya Emanuel Age: 77 yrs Sex: Female : 1945 Arrival Date: 05/14/2023 Time: 10:51 Bed 7 Private MD: Effie Cerna Diagnosis: Chronic kidney disease, stage 3 (moderate) Presentation: 05/14 11:00 Chief complaint: Patient states: TOLD TO COME IN FOR RECHECK OF KIDNEY AND POTASSIUM db LEVEL. STATES WAS TOLD HAS ABNORMAL LAB RESULTS. Coronavirus screen: Vaccine status: Patient reports receiving the 2nd dose of the covid vaccine. Client denies travel out of the [place] in the last 14 days. At this time, the client does not indicate any symptoms associated with coronavirus-19. Ebola Screen: Patient negative for fever greater than or equal to 101.5 degrees Fahrenheit, and additional compatible Ebola Virus Disease symptoms Patient denies exposure to infectious person. Patient denies travel to an Ebola-affected area in the 21 days before illness onset. No symptoms or risks identified at this time. Initial Sepsis Screen: Does the patient meet any 2 criteria? No. Patient's initial sepsis screen is negative. Does the patient have a suspected source of infection? No. Patient's initial sepsis screen is negative. Risk Assessment: Do you want to hurt yourself or someone else? Patient reports no desire to harm self or others. Onset of symptoms was May 14, 2023. 11:00 Method Of Arrival: Ambulatory db 11:00 Acuity: SHIRLEY 3 db Triage Assessment: 11:02 General: Appears in no apparent distress. comfortable, Behavior is calm, cooperative. db Pain: Complains of pain in left foot. Neuro: Level of Consciousness is awake, alert, obeys commands, Oriented to person, place, time, situation. Respiratory: Airway is patent Respiratory effort is even, unlabored, Respiratory pattern is regular, symmetrical. Historical: - Allergies: 11: No Known Allergies; db - PMHx: 11: CAD; Diabetes - NIDDM; Hepatitis C; Hyperlipidemia; heart attack; Myocardial db infarction; Hypertension; - Immunization history:: Client reports receiving the 2nd dose of the Covid vaccine. - Social history:: Smoking status: Patient denies any tobacco usage or history of. Screenin:03 [facility] ED Fall Risk Assessment (Adult) History of falling in the last 3 months, ph including since admission No falls in past 3 months (0 pts) Confusion or Disorientation No (0 pts) Intoxicated or Sedated No (0 pts) Impaired Gait No (0 pts) Mobility Assist Device Used Yes (1 pt) Altered Elimination No (0 pt) Score/Fall Risk Level 0 - 2 = Low Risk Oriented to surroundings, Maintained a safe environment, Provided non-skid footwear, Hourly rounding (assess needs \T\ fall precautionary measures) done. Abuse screen: Denies threats or abuse. Denies injuries from another. Nutritional screening: No deficits noted. Tuberculosis screening: No symptoms or risk factors identified. Assessment: 12:02 General: Appears in no apparent distress. comfortable, Behavior is calm, cooperative, ph appropriate for age. Pain: Denies pain. Neuro: Level of Consciousness is awake, alert, obeys commands, Oriented to person, place, time, situation. Cardiovascular: Capillary refill < 3 seconds in bilateral fingers Patient's skin is warm and dry. Respiratory: Airway is patent Respiratory effort is even, unlabored. Derm: Skin is pink, warm \T\ dry. Musculoskeletal: Circulation, motion, and sensation intact. Vital Signs: 11:03 BP 155 / 63; Pulse 85; Resp 18; Temp 98.5(O); Pulse Ox 100% ; Weight 72.57 kg; Height 5 db ft. 2 in. ; 12:32 BP 127 / 68; Pulse 74; Resp 17; Pulse Ox 100% on R/A; me1 13:30 BP 137 / 68; Pulse 73; Resp 16; Pulse Ox 99% on R/A; me1 11:03 Body Mass Index 29.26 (72.57 kg, 157.48 cm) db ED Course: 10:56 Patient arrived in ED. mr 10:57 Effie Cerna is Private Physician. mr 11:01 Johnny Vidales DO is Attending Physician. ms3 11:02 Triage completed. db 11:02 Arm band placed on. db 11:25 Ashley Melendez, JALIL is Primary Nurse. ph 12:01 Initial lab(s) drawn, by ia, sent to lab. Inserted saline lock: 22 gauge in right ph antecubital area, using aseptic technique. Blood collected. 12:03 Patient has correct armband on for positive identification. Bed in low position. Call ph light in reach. Side rails up X 1. Door closed. Noise minimized. Warm blanket given. 14:10 Effie Cerna is Referral Physician. ms3 14:41 Provided Education on: POC, Verbalized understanding. . me1 14:41 No provider procedures requiring assistance completed. IV discontinued, intact, me1 bleeding controlled, No redness/swelling at site. Pressure dressing applied. Administered Medications: No medications were administered Medication: 12:03 VIS not applicable for this client. ph Outcome: 14:10 Discharge ordered by MD. ms3 14:41 Discharged to home ambulatory, with family, me1 14:41 Condition: stable 14:41 Discharge instructions given to patient, family, Instructed on discharge instructions, follow up and referral plans. Demonstrated understanding of instructions, follow-up care, medications, Prescriptions given X 1, 14:43 Patient left the ED. me1 Signatures: Rossana Ordonez, Reg Reg mr Ashley Melendez, RN RN ph Johnny Vidales, DO ms3 Elena Patel, RN RN Aline Bonner, JALIL RN me1 Corrections: (The following items were deleted from the chart) 11:27 11:03 BP 155 / 63; Pulse 85bpm; Resp 18bpm; Pulse Ox 100%; Temp 96F; 72.57 kg; Height 5 db ft. 2 in.; BMI: 29.2; db
--- NOTE | 2023-05-14 14:11 | EDPHYS ---
Physician Documentation [facility] Name: Miya Emanuel Age: 77 yrs Sex: Female : 1945 Arrival Date: 05/14/2023 Time: 10:51 Bed 7 Private MD: Effie Cerna ED Physician Johnny Vidales HPI: 05/14 11:26 This 77 yrs old Black Female presents to ER via Ambulatory with complaints of Abnormal ms3 Lab Results. 11:26 77-year-old female past medical history of coronary disease, diabetes, hepatitis C, ms3 hyperlipidemia, myocardial infarction, and presents to the emergency department for abnormal labs that were obtained yesterday. 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 Abdirizak Contreras at [facility] in [place] called her and instructed her to go to the emergency department for elevated potassium. Patient denies symptoms. Patient denies any alleviating or inciting factors. Historical: - Allergies: 11:02 No Known Allergies; db - PMHx: 11:02 CAD; Diabetes - NIDDM; Hepatitis C; Hyperlipidemia; heart attack; Myocardial db infarction; Hypertension; - Immunization history:: Client reports receiving the 2nd dose of the Covid vaccine. - Social history:: Smoking status: Patient denies any tobacco usage or history of. ROS: 11:26 Constitutional: Negative for fever, and chills. Neck: Negative for injury, pain, and ms3 swelling, Cardiovascular: Negative for chest pain, and palpitations. Respiratory: Negative for shortness of breath, cough, wheezing, and pleuritic chest pain, Abdomen/GI: Negative for abdominal pain, nausea, vomiting, diarrhea, and constipation, MS/Extremity: Negative for injury and deformity, Skin: Negative for injury, rash, and discoloration, Exam: 11:26 Constitutional: This is a well developed, well nourished patient who is awake, alert, ms3 and in no acute distress. Head/Face: Normocephalic, atraumatic. Neck: Trachea midline, no cervical lymphadenopathy. Supple, full range of motion without nuchal rigidity, or vertebral point tenderness. No Meningismus. Chest/axilla: Normal chest wall appearance and motion. Nontender with no deformity. Cardiovascular: Regular rate and rhythm with a normal S1 and S2. No gallops, murmurs, or rubs. Normal PMI, no JVD. No pulse deficits. Respiratory: Lungs have equal breath sounds bilaterally, clear to auscultation and percussion. No rales, rhonchi or wheezes noted. No increased work of breathing, no retractions or nasal flaring. Abdomen/GI: Soft, non-tender, with normal bowel sounds. No distension or tympany. No guarding or rebound. No evidence of tenderness throughout. Skin: Warm, dry with normal turgor. Normal color with no rashes, no lesions, and no evidence of cellulitis. Vital Signs: 11:03 BP 155 / 63; Pulse 85; Resp 18; Temp 98.5(O); Pulse Ox 100% ; Weight 72.57 kg; Height 5 db ft. 2 in. ; 12:32 BP 127 / 68; Pulse 74; Resp 17; Pulse Ox 100% on R/A; me1 13:30 BP 137 / 68; Pulse 73; Resp 16; Pulse Ox 99% on R/A; me1 11:03 Body Mass Index 29.26 (72.57 kg, 157.48 cm) db MDM: 11:26 Differential Diagnosis Hyperkalemia versus end-stage renal disease versus chronic ms3 kidney disease. 11:27 Patient medically screened. ms3 14:10 Data reviewed: vital signs, nurses notes, lab test result(s), CBC, electrolytes, and as ms3 a result, I will discharge patient. Care significantly affected by the following chronic conditions: Diabetes, Hypertension, Hepatitis C. Counseling: I had a detailed discussion with the patient and/or guardian regarding the historical points, exam findings, and any diagnostic results supporting the discharge/admit diagnosis, lab results, the need for outpatient follow up, to return to the emergency department if symptoms worsen or persist or if there are any questions or concerns that arise at home. Special discussion: I discussed with the patient/guardian in detail that at this point there is no indication for admission to the hospital. It is understood, however, that if the symptoms persist or worsen the patient needs to return immediately for re-evaluation. ED course: Discussed normal potassium level with patient. Patient to follow-up with her primary care physician in 2 to 3 days. Patient understands and agrees with plan. All questions were answered. Return precautions discussed include worsening symptoms, or any other concerns. On reevaluation patient is alert and oriented x 4, no apparent distress, nontoxic-appearing, ambulatory emergency room, speaking full sentences. 05/14 11:25 Order name: CBC with Diff; Complete Time: 12:34 ms3 05/14 11:25 Order name: BMP; Complete Time: 12:34 ms3 05/14 12:34 Order name: Potassium; Complete Time: 13:37 ms3 Administered Medications: No medications were administered Disposition Summary: 05/14/23 14:10 Discharge Ordered Notes: Location: Home ms3 Condition: Stable ms3 Diagnosis - Chronic kidney disease, stage 3 (moderate) ms3 Followup: ms3 - With: Effie Cerna - When: 2 - 3 days - Reason: Recheck today's complaints Discharge Instructions: - Chronic Kidney Disease, Adult, [id number] ms3 - Discharge Summary Sheet ld1 Forms: - Medication Reconciliation Form ms3 - Thank You Letter ms3 - Antibiotic Education ms3 - Prescription Opioid Use ms3 - Patient Portal Instructions ms3 - Leadership Thank You Letter ms3 - Family Work Release ld1 Signatures: Dispatcher [employer] EDJohnny Arango DO DO ms3 Elena Patel, RN RN db
[2023-05-14 15:06] VITALS: BP 137/68; TEMP 98.5; O2SAT 99
== END ==
LOC: SUPCPDRO 10:51 → ER 10:51
DX: E11.22 Type 2 diabetes mellitus with diabetic chronic kidney disease (principal); I12.9 Hypertensive chronic kidney disease with stage 1 through stage 4 chronic kidney disease, or unspecified chronic kidney disease; N18.30 Chronic kidney disease, stage 3 unspecified
CPT/HCPCS: 36415; 80048; 84132; 85025

== ENCOUNTER 2023-11-04 16:49 | Emergency (ER) | payer OTHER ==
--- NOTE | 2023-11-04 18:33 | RAD REPORT ---
EXAM DESCRIPTION: Krysta Ellis And Yanet (2 Views)11/04/2023 5:56 pm CLINICAL HISTORY: Cough COMPARISON: 2018 FINDINGS: 15 millimeter left upper lobe nodule unchanged likely benign The lungs appear clear of acute infiltrate. The heart is mildly enlarged. Postsurgical changes involve the chest IMPRESSION: No acute abnormalities displayed
[2023-11-04 19:55] LABS: SARS-CoV-2 Antigen CONTROL BLUE LINE VIS/BG OK; SARS-CoV-2 Antigen Rapid Res Negative (Negative)
--- NOTE | 2023-11-04 20:04 | ER ---
Nurse's Notes [facility] Name: Miya Emanuel Age: 77 yrs Sex: Female : 1945 Arrival Date: 11/04/2023 Time: 16:49 Bed 10 Private MD: Diagnosis: Acute upper respiratory infection, unspecified Presentation: 11/03 17:42 Chief complaint: Patient states: Cough, fever, runny nose, heaviness on chest, headache cm10 onset yesterday. Coronavirus screen: Client denies travel out of the [place] in the last 14 days. Ebola Screen: Patient denies travel to an Ebola-affected area in the 21 days before illness onset. No symptoms or risks identified at this time. Initial Sepsis Screen: Does the patient meet any 2 criteria? No. Patient's initial sepsis screen is negative. Does the patient have a suspected source of infection? No. Patient's initial sepsis screen is negative. Risk Assessment: Do you want to hurt yourself or someone else? Patient reports no desire to harm self or others. Onset of symptoms was November 04, 2023. 17:42 Method Of Arrival: Ambulatory cm10 17:42 Acuity: SHIRLEY 3 cm10 Historical: - Allergies: 17:41 No Known Allergies; cm10 - PMHx: 17:41 CAD; Diabetes - NIDDM; heart attack; Hepatitis C; Hyperlipidemia; Hypertension; cm10 Myocardial infarction; - Immunization history:: Adult Immunizations up to date. - Infectious Disease History:: Denies. - Social history:: Smoking status: Patient denies any tobacco usage or history of. Screenin:12 [facility] ED Fall Risk Assessment (Adult) History of falling in the last 3 months, kl including since admission No falls in past 3 months (0 pts) Confusion or Disorientation No (0 pts) Intoxicated or Sedated No (0 pts) Impaired Gait No (0 pts) Mobility Assist Device Used Yes (1 pt) Altered Elimination No (0 pt) Score/Fall Risk Level 0 - 2 = Low Risk Oriented to surroundings, Maintained a safe environment. Abuse screen: Denies threats or abuse. Nutritional screening: No deficits noted. Tuberculosis screening: No symptoms or risk factors identified. Assessment: 19:35 General: Appears in no apparent distress. comfortable, Behavior is calm, cooperative. kl Pain: Denies pain. Neuro: No deficits noted. Cardiovascular: No deficits noted. Respiratory: No deficits noted. Airway is patent Trachea midline Respiratory effort is even, unlabored, Respiratory pattern is regular, symmetrical. GI: No deficits noted. No signs and/or symptoms were reported involving the gastrointestinal system. : No deficits noted. No signs and/or symptoms were reported regarding the genitourinary system. EENT: No deficits noted. No signs and/or symptoms were reported regarding the EENT system. Vital Signs: 17:42 BP 190 / 92; Pulse 89; Resp 16; Temp 98.5(O); Pulse Ox 96% on R/A; Weight 71.67 kg; cm10 Height 5 ft. 2 in. ; Pain 7/10; 20:12 Pulse 72; Resp 16; Pulse Ox 98% on R/A; kl 17:42 Body Mass Index 28.90 (71.67 kg, 157.48 cm) cm10 17:42 Pain Scale: Adult cm10 ED Course: 16:52 Patient arrived in ED. im 17:03 Virginia Harris PA-C is PHCP. sb4 17:03 Lemuel Luong MD is Attending Physician. sb4 17:45 Triage completed. cm10 17:45 Arm band placed on Patient placed in waiting room. cm10 17:58 Chest Pa And Lat (2 Views) XRAY In Process Unspecified. EDMS 19:54 EKG done, by ED staff. vk 20:13 No provider procedures requiring assistance completed. Patient did not have IV access kl during this emergency room visit. Administered Medications: No medications were administered Medication: 20:12 VIS not applicable for this client. kl Outcome: 20:03 Discharge ordered by . sb4 20:12 Discharged to home ambulatory, kl 20:12 Condition: stable 20:12 Discharge instructions given to patient, Instructed on discharge instructions, follow up and referral plans. medication usage, Demonstrated understanding of instructions, follow-up care, medications, Prescriptions given X 1, 20:13 Patient left the ED. kl Signatures: Dispatcher [employer] EDMS Celia Shaikh, RN Virginia Morgan PA-C PA-C sb4 Odalys Murphy Clarissa, RN RN cm10 Jennifer Sim vk
--- NOTE | 2023-11-04 20:04 | EDPHYS ---
Physician Documentation [facility] Name: Miya Emanuel Age: 77 yrs Sex: Female : 1945 Arrival Date: 11/04/2023 Time: 16:49 Bed 10 Private MD: ED Physician Lemuel Luong HPI: 11/03 17:59 This 77 yrs old Black Female presents to ER via Ambulatory with complaints of Flu sb4 Symptoms. 17:59 headache, cough, body aches x 2 days. thinks she has covid. has not been taking any sb4 medications. denies any sob. no GI symptoms. Historical: - Allergies: 17:41 No Known Allergies; cm10 - PMHx: 17:41 CAD; Diabetes - NIDDM; heart attack; Hepatitis C; Hyperlipidemia; Hypertension; cm10 Myocardial infarction; - Immunization history:: Adult Immunizations up to date. - Infectious Disease History:: Denies. - Social history:: Smoking status: Patient denies any tobacco usage or history of. ROS: 17:59 Abdomen/GI: Negative for abdominal pain, nausea, vomiting, diarrhea, and constipation, sb4 17:59 Constitutional: Positive for body aches, chills, fever, malaise, 17:59 Respiratory: Positive for cough, 17:59 Neuro: Positive for headache, Exam: 17:59 Constitutional: This is a well developed, well nourished patient who is awake, alert, sb4 and in no acute distress. Head/Face: Normocephalic, atraumatic. Eyes: Extra-ocular motions intact. Periorbital areas with no swelling, redness, or edema. ENT: Mucous membranes moist. Cardiovascular: Regular rate and rhythm with a normal S1 and S2. Respiratory: Lungs have equal breath sounds bilaterally, clear to auscultation and percussion. No rales, rhonchi or wheezes noted. No increased work of breathing, no retractions or nasal flaring. Abdomen/GI: Soft, non-tender, no distension. Skin: Warm, dry with normal turgor. Normal color with no rashes, no lesions, and no evidence of cellulitis. MS/ Extremity: Pulses equal, no cyanosis. Neurovascular intact. Full, normal range of motion. Vital Signs: 17:42 BP 190 / 92; Pulse 89; Resp 16; Temp 98.5(O); Pulse Ox 96% on R/A; Weight 71.67 kg; cm10 Height 5 ft. 2 in. ; Pain 7/10; 20:12 Pulse 72; Resp 16; Pulse Ox 98% on R/A; kl 17:42 Body Mass Index 28.90 (71.67 kg, 157.48 cm) cm10 17:42 Pain Scale: Adult cm10 MDM: 17:09 Patient medically screened. sb4 20:03 Data reviewed: vital signs, nurses notes, lab test result(s), EKG, radiologic studies, sb4 and as a result, I will discharge patient. Counseling: I had a detailed discussion with the patient and/or guardian regarding the historical points, exam findings, and any diagnostic results supporting the discharge/admit diagnosis, the presence of at least one elevated blood pressure reading (>120/80) during this emergency department visit, lab results, radiology results, to return to the emergency department if symptoms worsen or persist or if there are any questions or concerns that arise at home. 11/03 17:43 Order name: SARS RAPID; Complete Time: 19:55 sb4 11/03 17:43 Order name: Flu; Complete Time: 20:01 sb4 11/03 17:43 Order name: Chest Pa And Lat (2 Views) XRAY; Complete Time: 18:34 sb4 11/03 17:46 Order name: EKG; Complete Time: 17:46 sb4 11/03 17:46 Order name: EKG - Nurse/Tech; Complete Time: 19:54 sb4 EC:56 Rate is 75 beats/min. Rhythm is regular, Sinus Rhythm with PACs. AK interval is normal sb4 at 162 msec. QRS interval is normal at 100 msec. QT interval is normal at 402 msec. No Q waves. Clinical impression: No evidence of ischemia. Interpreted by me. Reviewed by me. Administered Medications: No medications were administered Disposition Summary: 11/04/23 20:03 Discharge Ordered Notes: Location: Home sb4 Problem: new sb4 Symptoms: are unchanged sb4 Condition: Stable sb4 Diagnosis - Acute upper respiratory infection, unspecified sb4 Followup: sb4 - With: Emergency Department - When: As needed - Reason: Trouble breathing, Worsening of condition Discharge Instructions: - Discharge Summary Sheet sb4 - Upper Respiratory Infection, Adult, [id number] sb4 Forms: - Antibiotic Education sb4 - Patient Portal Instructions sb4 - Leadership Thank You Letter sb4 Prescriptions: - azithromycin 250 mg Oral tablet - take 1 dose pack ORAL route as directed on dose pack For 250 mg dose pack: take sb4 500 mg today (day 1), then 250 mg for 4 days (days 2-5); 1 Pack; Refills: 0, Product Selection Permitted Signatures: Dispatcher [employer] EDMS Virginia Harrsi PANeriC PAJl sb4 Marissa Gabriel RN RN cm10 Corrections: (The following items were deleted from the chart) 17:44 17:44 SARS-COV-2 Antigen Rapid+I.LAB.BRZ ordered. EDMS EDMS 17:44 17:44 Influenza Screen (A \T\ B)+BA.LAB.BRZ ordered. EDMS EDMS 17:44 17:44 Chest Pa And Lat (2 Views)+RAD.RAD.BRZ ordered. EDMS EDMS
[2023-11-04 20:18] VITALS: BP 190/92; TEMP 98.5
[2023-11-04 20:20] VITALS: O2SAT 98
--- NOTE | 2023-11-06 16:31 | EKG ---
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
== END 2023-11-04 20:13 | disposition home or self-care (01) ==
LOC: ER 16:49
DX: J06.9 Acute upper respiratory infection, unspecified (principal); Z11.52 Encounter for screening for COVID-19
CPT/HCPCS: 36415; 71046; 87804; 87811; 93005; 99283

== ENCOUNTER 2023-11-08 16:00 | Emergency (ER) | payer OTHER ==
[2023-11-08] MEDS ORDERED: ACETAMINOPHEN 500 MG TAB ONE (17:34)
--- NOTE | 2023-11-08 19:42 | RAD REPORT ---
EXAM DESCRIPTION: RAD - Foot Left 3 View - 11/08/2023 6:11 pm CLINICAL HISTORY: PAIN COMPARISON: FOOT AP LAT dated 05/15/2008 TECHNIQUE: Left foot, 3 views. FINDINGS: No fracture, dislocation or periosteal reaction. Sequelae of first metatarsal osteotomy. M etallic wirelike density along the lateral cortex of the first digit proximal phalanx may relate to p ostsurgical sequelae as well. Mild soft tissue swelling dorsally. No air or foreign body in the soft tissues. IMPRESSION: No acute osseous abnormality. Mild soft tissue swelling dorsally.
--- NOTE | 2023-11-08 19:44 | ER ---
Nurse's Notes [facility] Name: Miya Emanuel Age: 78 yrs Sex: Female : 1945 Arrival Date: 11/08/2023 Time: 16:00 Bed DX1 Private MD: Diagnosis: Contusion of left foot Presentation: 11/07 16:30 Chief complaint: Patient states: Pt states her legs gave out last night while walking tl4 in her house, causing her to fall. Pt c/o left foot pain. Coronavirus screen: At this time, the client does not indicate any symptoms associated with coronavirus-19. Ebola Screen: No symptoms or risks identified at this time. Initial Sepsis Screen: Does the patient meet any 2 criteria? No. Patient's initial sepsis screen is negative. Does the patient have a suspected source of infection? No. Patient's initial sepsis screen is negative. Risk Assessment: Do you want to hurt yourself or someone else? Patient reports no desire to harm self or others. Onset of symptoms was November 07, 2023. 16:30 Method Of Arrival: Wheelchair tl4 16:30 Acuity: SHIRLEY 3 tl4 Triage Assessment: 16:35 General: Appears in no apparent distress. Behavior is calm, cooperative. Pain: tl4 Complains of pain in left foot. EENT: No signs and/or symptoms were reported regarding the EENT system. Neuro: Level of Consciousness is awake, alert, obeys commands, Oriented to person, place, time, situation. Cardiovascular: Capillary refill < 3 seconds Patient's skin is warm and dry. Respiratory: Airway is patent Respiratory effort is even, unlabored, Respiratory pattern is regular, symmetrical. GI: No signs and/or symptoms were reported involving the gastrointestinal system. : No signs and/or symptoms were reported regarding the genitourinary system. Derm: No signs and/or symptoms reported regarding the dermatologic system. Musculoskeletal: Reports pain in left foot. Injury Description: blunt from fall. Historical: - PMHx: 16:34 CAD; Diabetes - NIDDM; heart attack; Hepatitis C; Hyperlipidemia; Hypertension; tl4 Myocardial infarction; - Immunization history:: Adult Immunizations unknown. - Infectious Disease History:: Denies. - Social history:: Smoking status: Patient denies any tobacco usage or history of. Screenin:00 [facility] ED Fall Risk Assessment (Adult) History of falling in the last 3 months, vc1 including since admission No falls in past 3 months (0 pts) Confusion or Disorientation No (0 pts) Intoxicated or Sedated No (0 pts) Impaired Gait Yes (1 pt) Mobility Assist Device Used Yes (1 pt) Altered Elimination No (0 pt) Score/Fall Risk Level 0 - 2 = Low Risk Oriented to surroundings, Maintained a safe environment, Educated pt \T\ family on fall prevention, incl call for assistance when getting out of bed. Abuse screen: Denies threats or abuse. Nutritional screening: No deficits noted. Tuberculosis screening: No symptoms or risk factors identified. Assessment: 20:22 General: Appears in no apparent distress. Behavior is calm, cooperative, appropriate vc1 for age. Pain: Complains of pain in left foot. Neuro: Level of Consciousness is awake, alert, obeys commands, Oriented to person, place, time, situation, Appropriate for age. Cardiovascular: No deficits noted. Respiratory: Airway is patent Respiratory effort is even, unlabored, Respiratory pattern is regular, symmetrical. GI: Abdomen is round non-distended. : No deficits noted. No signs and/or symptoms were reported regarding the genitourinary system. EENT: No deficits noted. No signs and/or symptoms were reported regarding the EENT system. Derm: Skin is intact, is healthy with good turgor, Skin is dry, Skin is normal, Skin temperature is warm. Musculoskeletal: Reports pain in left foot. Vital Signs: 16:30 BP 123 / 62; Pulse 70; Resp 16; Temp 97.8(O); Pulse Ox 96% on R/A; Weight 69.4 kg; tl4 Height 5 ft. 2 in. ; Pain 8/10; 16:30 Body Mass Index 27.98 (69.40 kg, 157.48 cm) tl4 16:30 Pain Scale: Adult tl4 ED Course: 16:04 Patient arrived in ED. mg5 16:07 Johnny Vidales DO is Attending Physician. ms3 16:34 Triage completed. tl4 16:36 Arm band placed on left wrist. tl4 18:06 Attending Physician role handed off by Johnny Vidales DO ms3 18:06 Lemuel Luong MD is Attending Physician. ms3 18:11 Togolese, LaKendric, RN is Primary Nurse. le1 18:13 Foot Left 3 View XRAY In Process Unspecified. EDMS 20:21 No provider procedures requiring assistance completed. Patient did not have IV access vc1 during this emergency room visit. 20:21 Ortho shoe applied to left foot. vc1 Administered Medications: 17:38 Drug: Acetaminophen PO 1000 mg PO once Route: PO; nj1 20:24 Follow up: Response: No adverse reaction; Pain is decreased kj2 Medication: 20:21 VIS not applicable for this client. vc1 Outcome: 19:43 Discharge ordered by . rn 20:21 Discharged to home ambulatory, with rolling walker (personal) vc1 20:21 Condition: good 20:21 Discharge instructions given to patient, Instructed on discharge instructions, follow up and referral plans. Demonstrated understanding of instructions, follow-up care, 20:23 Patient left the ED. vc1 Signatures: Dispatcher [employer] EDMS Lemuel Luong MD MD rn Sims, Marcus, DO DO ms3 Celine Daniels RN RN vc1 Wilma Pinto RN RN nj1 Mitra Cornell mg5 Juan Gtz RN RN tl4 Edison Merlos, RN RN le1 Alexandra Brar RN RN kj2
--- NOTE | 2023-11-08 19:44 | EDPHYS ---
Physician Documentation [facility] – [place], [place] Name: Miya Emanuel Age: 78 yrs Sex: Female : 1945 Arrival Date: 11/08/2023 Time: 16:00 Bed DX1 Private MD: ED Physician Lemuel Luong HPI: 11/07 16:35 This 78 yrs old Black Female presents to ER via Wheelchair with complaints of Foot ms3 Injury. 16:35 78-year-old female with past medical history of coronary artery disease, diabetes, ms3 myocardial infarction, hepatitis C, hyperlipidemia, hypertension, myocardial infarction presents to the emergency department for left foot pain that began last night after falling. Patient states her pain is an 8/10. Patient denies any alleviating or inciting factors. Patient states she has not taken medication for the pain.. Historical: - PMHx: 16:34 CAD; Diabetes - NIDDM; heart attack; Hepatitis C; Hyperlipidemia; Hypertension; tl4 Myocardial infarction; - Immunization history:: Adult Immunizations unknown. - Infectious Disease History:: Denies. - Social history:: Smoking status: Patient denies any tobacco usage or history of. ROS: 16:35 Constitutional: Negative for fever, and chills. Cardiovascular: Negative for chest ms3 pain, and palpitations. Respiratory: Negative for shortness of breath, cough, wheezing, and pleuritic chest pain, Abdomen/GI: Negative for abdominal pain, nausea, vomiting, diarrhea, and constipation, 16:35 MS/extremity: Positive for Left foot pain, Exam: 16:35 Constitutional: This is a well developed, well nourished patient who is awake, alert, ms3 and in no acute distress. Chest/axilla: Normal chest wall appearance and motion. Nontender with no deformity. Cardiovascular: Regular rate and rhythm with a normal S1 and S2. No gallops, murmurs, or rubs. Normal PMI, no JVD. No pulse deficits. Respiratory: Lungs have equal breath sounds bilaterally, clear to auscultation and percussion. No rales, rhonchi or wheezes noted. No increased work of breathing, no retractions or nasal flaring. 16:35 Musculoskeletal/extremity: Extremities: noted in the left foot: pain, tenderness, Vital Signs: 16:30 BP 123 / 62; Pulse 70; Resp 16; Temp 97.8(O); Pulse Ox 96% on R/A; Weight 69.4 kg; tl4 Height 5 ft. 2 in. ; Pain 8/10; 16:30 Body Mass Index 27.98 (69.40 kg, 157.48 cm) tl4 16:30 Pain Scale: Adult tl4 MDM: 16:35 Differential diagnosis: fracture, sprain, gout. ms3 16:39 Patient medically screened. ms3 18:06 Transition of care: After a detail discussion of the patient's case, care is ms3 transferred to Lemuel Luong MD. 19:42 Data reviewed: vital signs, nurses notes, radiologic studies, plain films, and as a rn result, I will discharge patient. Counseling: I had a detailed discussion with the patient and/or guardian regarding the historical points, exam findings, and any diagnostic results supporting the discharge/admit diagnosis, radiology results, the need for outpatient follow up, to return to the emergency department if symptoms worsen or persist or if there are any questions or concerns that arise at home. Special discussion: I discussed with the patient/guardian in detail that at this point there is no indication for admission to the hospital. It is understood, however, that if the symptoms persist or worsen the patient needs to return immediately for re-evaluation. 19:42 ED course: X-ray left foot images negative for acute fracture or dislocation per my rn interpretation. 11/07 16:35 Order name: Foot Left 3 View XRAY; Complete Time: 19:42 ms3 11/07 19:42 Order name: Post-op Orthopedic Shoe; Complete Time: 20:16 rn Administered Medications: 17:38 Drug: Acetaminophen PO 1000 mg PO once Route: PO; nj1 20:24 Follow up: Response: No adverse reaction; Pain is decreased kj2 Disposition Summary: 11/08/23 19:43 Discharge Ordered Notes: Location: Home rn Problem: new rn Symptoms: have improved rn Condition: Stable rn Diagnosis - Contusion of left foot rn Followup: rn - With: Private Physician - When: As needed - Reason: Recheck today's complaints, Re-evaluation by your physician Discharge Instructions: - Discharge Summary Sheet rn - Foot Contusion rn Forms: - Medication Reconciliation Form rn - Antibiotic data governance consultant - Prescription Opioid Use rn - Patient Portal Instructions rn - Leadership Thank You Letter rn Signatures: Dispatcher [employer] Lemuel Cornejo MD MD rn Vidales, Johnny, DO ms3 Wilma Pinto RN RN nj1 Juan Gtz RN RN tl4 Alexandra Brar RN kj2
[2023-11-08 20:29] VITALS: BP 123/62; TEMP 97.8; O2SAT 96
== END 2023-11-08 20:23 | disposition home or self-care (01) ==
LOC: ER 16:00
DX: S90.32XA Contusion of left foot, initial encounter (principal)
CPT/HCPCS: 99283

== ENCOUNTER 2024-07-31 02:55 | Inpatient (IN) | payer OTHER ==
[2024-07-31] MEDS ORDERED: NA CHLORIDE 0.9% 1,000 ML ONE (03:55)
[2024-07-31 04:14] LABS: PT Prothrombin Time 11.3 SECONDS (10-13.0); Protime INR 0.99
[2024-07-31 04:16] LABS: Absolute Eosinophils 0.1 K/uL (0-0.5); Absolute Lymphocytes (CBC) 2.2 K/uL (0.7-4.9); Absolute Monocytes 0.4 K/uL (0.1-1.3); Absolute Neutrophil 6.1 K/uL (1.8-8.0); Basophils % 0.2 % (0-1.3); Eosinophils % 0.6 % (0-4.4); Hematocrit 40.9 % (36.0-45.0); Hemoglobin 13.6 g/dL (12.0-15.0); Lymphocytes % 25.2 % (15.3-44.8); MCH 27.9 pg (27.0-35.0); MCHC 33.1 g/dL (32.0-36.0); MCV 84.2 fL (80-100); MPV 9.5 fL (7.6-11.3); Monocytes % 4.9 % (3.3-12.3); Neutrophils % 69.1 % (41.7-73.7); Platelets 216 thou/uL (152-406); RBC Red Blood Cell Count 4.86 M/uL (3.86-4.86); Red Cell Distribution Width 15.5 % (12.1-15.2)
[2024-07-31 04:28] LABS: ALT/SGPT 17 U/L (13-56); AST/SGOT 14 U/L (15-37); Albumin 3.6 g/dL (3.4-5.0); Albumin/Globulin Ratio 0.8 (1.1-1.8); Alkaline Phosphatase 76 U/L (45-117); Anion Gap 7.7 mEq/L (5.0-15.0); BUN Blood Urea Nitrogen 27 mg/dL (7-18); Bicarbonate 29 mEq/L (21-32); Bilirubin Total 0.5 mg/dL (0.2-1.0); Globulin 4.4 g/dL (2.3-3.5); Glomerular Filtration Rate 39 ml/min (=/>90); Glucose Level 106 mg/dL (74-106); Lipase 60 U/L (13-75); Magnesium 2.3 mg/dL (1.6-2.4); NT PRO-BNP 146 pg/mL (<450); Potassium 3.7 mEq/L (3.5-5.1); Sodium Level 136 mEq/L (136-145)
[2024-07-31 04:30] LABS: Bilirubin Direct < 0.2 mg/dL (0-0.2); Bilirubin Indirect, Calculated 0.3 mg/dL (0.2-0.8); Troponin High Sensitivity 74.9 pg/mL (<58.9)
--- NOTE | 2024-07-31 04:41 | EDPHYS ---
Physician Documentation [facility] Name: Miya Emanuel Age: 78 yrs Sex: Female : 1945 Arrival Date: 07/31/2024 Time: 02:55 Bed 15 Private MD: ED Physician Donato Walden HPI: 07/31 04:24 This 78 yrs old Black Female presents to ER via EMS with complaints of Nausea/Vomiting. chanel 04:24 The patient presents to the emergency department with nausea, vomiting, abdominal pain, chanel of the right upper quadrant, left upper quadrant, right lower quadrant and left lower quadrant. Onset: The symptoms/episode began/occurred 1 day(s) ago. Possible causes: unknown. The symptoms are aggravated by nothing. The symptoms are alleviated by nothing. Associated signs and symptoms: The patient has no apparent associated signs or symptoms. Severity of symptoms: At their worst the symptoms were mild in the emergency department the symptoms are unchanged. The patient has not experienced similar symptoms in the past. Historical: - Allergies: 03:18 No Known Allergies; jj7 - Home Meds: 05:45 atorvastatin oral [Active]; Lisinopril Oral [Active]; Vyvanse oral [Active]; carvedilol jj7 oral [Active]; Plavix 75 mg Oral tablet 1 tab daily [Active]; Furosemide Oral [Active]; - PMHx: 03:18 CAD; Diabetes - NIDDM; heart attack; Hepatitis C; Hyperlipidemia; Hypertension; jj7 Myocardial infarction; - PSHx: 03:18 None; jj7 - Immunization history:: Adult Immunizations up to date. - Infectious Disease History:: Denies. - Social history:: Smoking status: Patient denies any tobacco usage or history of. Patient/guardian denies using alcohol, street drugs, IV drugs. ROS: 04:25 Constitutional: Negative for fever, chills, and weight loss, Eyes: Negative for injury, chanel pain, redness, and discharge, ENT: Negative for injury, pain, and discharge, Neck: Negative for injury, pain, and swelling, Cardiovascular: Negative for chest pain, palpitations, and edema, Respiratory: Negative for shortness of breath, cough, wheezing, and pleuritic chest pain, Back: Negative for injury and pain, : Negative for injury, bleeding, discharge, and swelling, MS/Extremity: Negative for injury and deformity, Skin: Negative for injury, rash, and discoloration, Neuro: Negative for headache, weakness, numbness, tingling, and seizure, 04:25 Abdomen/GI: Positive for nausea and vomiting, of the right upper quadrant, left upper quadrant, right lower quadrant and left lower quadrant, Exam: 04:25 Constitutional: This is a well developed, well nourished patient who is awake, alert, chanel and in no acute distress. Head/Face: Normocephalic, atraumatic. Eyes: Pupils equal round and reactive to light, extra-ocular motions intact. Lids and lashes normal. Conjunctiva and sclera are non-icteric and not injected. Cornea within normal limits. Periorbital areas with no swelling, redness, or edema. ENT: Nares patent. No nasal discharge, no septal abnormalities noted. Tympanic membranes are normal and external auditory canals are clear. Oropharynx with no redness, swelling, or masses, exudates, or evidence of obstruction, uvula midline. Mucous membranes moist. Neck: Trachea midline, no thyromegaly or masses palpated, and no cervical lymphadenopathy. Supple, full range of motion without nuchal rigidity, or vertebral point tenderness. No Meningismus. Chest/axilla: Normal chest wall appearance and motion. Nontender with no deformity. No lesions are appreciated. Cardiovascular: Regular rate and rhythm with a normal S1 and S2. No gallops, murmurs, or rubs. Normal PMI, no JVD. No pulse deficits. Respiratory: Lungs have equal breath sounds bilaterally, clear to auscultation and percussion. No rales, rhonchi or wheezes noted. No increased work of breathing, no retractions or nasal flaring. Back: No spinal tenderness. No costovertebral tenderness. Full range of motion. Female : Normal external genitalia. Skin: Warm, dry with normal turgor. Normal color with no rashes, no lesions, and no evidence of cellulitis. MS/ Extremity: Pulses equal, no cyanosis. Neurovascular intact. Full, normal range of motion., bilateral aka Neuro: Awake and alert, GCS 15, oriented to person, place, time, and situation. Cranial nerves II-XII grossly intact. Motor strength 5/5 in all extremities. Sensory grossly intact. Cerebellar exam normal. Normal gait. Psych: Awake, alert, with orientation to person, place and time. Behavior, mood, and affect are within normal limits. 04:25 ECG was reviewed by the Attending Physician. 04:25 Abdomen/GI: Inspection: abdomen appears normal, Bowel sounds: normal, Palpation: mild abdominal tenderness, in all quadrants, Liver: no appreciated palpable abnormalities, Hernia: not appreciated, 04:25 Musculoskeletal/extremity: ROM: no acute changes, Circulation is intact in all extremities. Sensation intact. Compartment Syndrome exam of affected extremity: is normal. Joints: All joints appear normal with full range of motion. Weight bearing: able to fully bear weight, Tendon exam: specific tendon testing normal through active and passive range of motion DVT Exam: No signs of deep vein thrombosis. no pain, no swelling, no tenderness, negative Homans' sign noted on exam, no appreciated bluish discoloration, no erythema, no increased warmth, Calves: are non-tender, have equal circumference, Vital Signs: 03:15 BP 180 / 74; Pulse 70; Resp 16; Temp 97.9; Pulse Ox 100% ; Weight 66.22 kg; Height 5 jj7 ft. 2 in. ; Pain 0/10; 04:00 BP 189 / 91; Pulse 64; Resp 16; Pulse Ox 100% ; jj7 05:20 BP 179 / 76; Pulse 80; Resp 17; Pulse Ox 100% ; jj7 06:38 BP 126 / 76; Pulse 73; Resp 17; Pulse Ox 99% ; jj7 07:34 BP 112 / 72; Pulse 80; Resp 17 S; Pulse Ox 99% on R/A; Pain 0/10; kc6 08:41 BP 126 / 64; Pulse 77; Resp 17 S; Pulse Ox 100% on R/A; kc6 03:15 Body Mass Index 26.70 (66.22 kg, 157.48 cm) j7 03:15 Pain Scale: Adult jj7 07:34 Pain Scale: Adult kc6 MDM: 03:06 Medical Screening Exam initiated chanel 04:27 Differential diagnosis: Nonspecific abd pain, gastritis, cholecystitis, pancreatitis, chanel appendicitis, diverticulitis, viral gastroenteritis, gastroenteritis, appendicitis, bowel obstruction, coronary artery disease, cholecystitis, Cholelithiasis, diverticulitis, gastritis. Data reviewed: vital signs, nurses notes, EMS record, lab test result(s), EKG, radiologic studies, CT scan, plain films. Consideration of Admission/Observation Escalation of care including admission/observation considered. I considered the following discharge prescriptions or medication management in the emergency department Medications were administered in the Emergency Department. See MAR. Independent interpretation of the following test(s) in the Emergency Department EKG: See my EKG interpretation above X-Ray: My interpretation is CXR. CT Scan: My interpretation is SEE REPORT. Test considered but Not performed: Ultrasound NO ABD USG. Care significantly affected by the following chronic conditions: Diabetes, Hypertension, Obesity, CAD, [place], HEP C. 07/31 03:08 Order name: Basic Metabolic Panel; Complete Time: 04:33 [facility] 07/31 03:08 Order name: CBC with Diff; Complete Time: 04:33 [facility] 07/31 03:08 Order name: LFT's; Complete Time: 04:33 [facility] 07/31 03:08 Order name: Magnesium; Complete Time: 04:33 [facility] 07/31 03:08 Order name: NT PRO-BNP; Complete Time: 04:33 [facility] 07/31 03:08 Order name: PT-INR; Complete Time: 04:33 [facility] 07/31 03:08 Order name: Troponin HS; Complete Time: 04:33 [facility] 07/31 03:08 Order name: Lipase; Complete Time: 04:33 [facility] 07/31 03:08 Order name: UA Rfx Pedro Cult if indicated [facility] 07/31 09:12 Order name: Glucose, Ancillary Testing [facility] 07/31 09:56 Order name: T4 Free [facility] 07/31 09:56 Order name: Thyroid Stimulating Hormone [facility] 07/31 09:56 Order name: Urine Drug Screen [facility] 07/31 09:56 Order name: Basic Metabolic Panel [facility] 07/31 09:56 Order name: Basic Metabolic Panel [facility] 07/31 09:56 Order name: Basic Metabolic Panel [facility] 07/31 09:56 Order name: Basic Metabolic Panel [facility] 07/31 09:56 Order name: CBC with Automated Diff [facility] 07/31 09:56 Order name: CBC with Automated Diff [facility] 07/31 09:56 Order name: CBC with Automated Diff [facility] 07/31 09:56 Order name: CBC with Automated Diff [facility] 07/31 09:56 Order name: Lipid Profile [facility] 07/31 09:56 Order name: Lipid Profile [facility] 07/31 09:56 Order name: Magnesium [facility] 07/31 09:56 Order name: Magnesium [facility] 07/31 09:56 Order name: Magnesium [facility] 07/31 09:56 Order name: Magnesium [facility] 07/31 09:56 Order name: Phosphorus [facility] 07/31 09:56 Order name: Phosphorus [facility] 07/31 09:56 Order name: Phosphorus [facility] 07/31 09:56 Order name: Phosphorus [facility] 07/31 09:56 Order name: Troponin High Sensitivity [facility] 07/31 09:56 Order name: Troponin High Sensitivity [facility] 07/31 09:56 Order name: Troponin High Sensitivity [facility] 07/31 11:51 Order name: Glucose, Ancillary Testing [facility] 07/31 12:49 Order name: Glucose, Ancillary Testing [facility] 07/31 03:08 Order name: XRAY Chest (1 view) [facility] 07/31 03:08 Order name: CT Abd/Pelvis - Without Contrast [facility] 07/31 09:56 Order name: Echo with Doppler [facility] 07/31 03:08 Order name: EKG; Complete Time: 03:08 [facility] 07/31 09:55 Order name: Physical Therapy Consult [facility] 07/31 03:08 Order name: Cardiac monitoring; Complete Time: 04:00 [facility] 07/31 03:08 Order name: EKG - Nurse/Tech; Complete Time: 04:00 [facility] 07/31 03:08 Order name: IV Saline Lock; Complete Time: 04:00 [facility] 07/31 03:08 Order name: Labs collected and sent; Complete Time: 04:00 [facility] 07/31 03:08 Order name: O2 Per Protocol; Complete Time: 04:25 [facility] 07/31 03:08 Order name: O2 Sat Monitoring; Complete Time: 04:00 [facility] 07/31 05:13 Order name: Misc. Order: get ua; Complete Time: 05:42 chanel EC:25 Rate is 68 beats/min. Rhythm is regular. QRS [place] is Normal. IN interval is normal. QRS chanel interval is normal. QT interval is normal. No Q waves. T waves are Normal. No ST changes noted. Clinical impression: NSR w/ Non-specific ST/T Changes and No evidence of ischemia. Interpreted by me. Reviewed by me. Administered Medications: 03:59 Drug: NS 0.9% IV 1000 ml IV at 1000 ml once; to be given as a bolus over 60 minutes jj7 Route: IV; Rate: 1000 ml; Site: right antecubital; 07:35 Follow up: Response: No adverse reaction; IV Status: Completed infusion; IV Intake: kc6 1000ml 03:59 Not Given (Physician Discretion; pt feelig better. n/v resolvedd): ondansetron 8 mg IVP jj7 once; over 2 minutes 04:00 Not Given (Physician Discretion; n/v resolvedd): [id number] mg IVP once; dilute with jj7 10 mL 0.9% NaCl; give over 2 minutes 05:42 Drug: Aspirin PO Chewable Tablet 81 mg PO once Route: PO; jj7 07:35 Follow up: Response: No adverse reaction kc6 05:42 Drug: Enoxaparin Sub-Q 1 mg/kg Sub-Q once Route: Sub-Q; Site: abdomen; jj7 07:35 Follow up: Response: No adverse reaction kc6 Disposition Summary: 07/31/24 04:40 Hospitalization Ordered Notes: Hospitalization Status: Observation chanel Provider: Robbie Luong cha Condition: Fair chanel Problem: new chanel Symptoms: have improved chanel Bed/Room Type: Standard chanel Location: Telemetry/MedSurg (Inpatient)(07/31/24 14:09) jl7 Room Assignment: 222(07/31/24 14:09) jl7 Diagnosis - Nausea chanel - Vomiting chanel - Weakness chanel - Abnormal levels of other serum enzymes - Troponin 74.9 chanel - Unspecified kidney failure - chronic chanel Forms: - Medication Reconciliation Form chanel - SBAR form chanel - Leadership Thank You Letter chanel Signatures: Dispatcher [employer] Donato Ng MD MD cha Garcia, Cindy, RN RN Martine Khoury RN RN Tish Potts RN RN jl7 Judit Miles Juwairiyah, RN RN Janel Peace RN kc6 Corrections: (The following items were deleted from the chart) 05:39 04:40 Telemetry/MedSurg (observation) chanel cg 05:39 04:40 chanel cg 07:15 05:39 [facility] ER HOLD cg eb 07:15 05:39 ERHOLD- cg eb 07:16 07:15 Telemetry/MedSurg (observation) eb hb 07:16 07:15 eb hb 10:24 07:16 Telemetry/MedSurg (observation) hb hb : 07:16 hb hb 14: 10:24 [facility] ER HOLD hb jl7 14: 10:24 ERHOLD- hb jl7
--- NOTE | 2024-07-31 04:41 | ER ---
Nurse's Notes [facility] Name: Miya Emanuel Age: 78 yrs Sex: Female : 1945 Arrival Date: 07/31/2024 Time: 02:55 Bed 15 Private MD: Diagnosis: Nausea;Vomiting;Weakness;Abnormal levels of other serum enzymes-Troponin 74.9;Unspecified kidney failure-chronic Presentation: 07/31 03:15 Chief complaint: Patient states: N/V STARTED THIS MORNING. Coronavirus screen: At this jj7 time, the client does not indicate any symptoms associated with coronavirus-19. Ebola Screen: No symptoms or risks identified at this time. Initial Sepsis Screen: Does the patient meet any 2 criteria? No. Patient's initial sepsis screen is negative. Does the patient have a suspected source of infection? No. Patient's initial sepsis screen is negative. Risk Assessment: Do you want to hurt yourself or someone else? Patient reports no desire to harm self or others. Onset of symptoms was July 31, 2024. Care prior to arrival: Medication(s) given: DROPERIDOL 2.5 IM IN LEFT DELTOID. 03:15 Method Of Arrival: EMS: [facility] jj7 03:15 Acuity: SHIRLEY 3 jj7 Triage Assessment: 03:18 General: Appears in no apparent distress. comfortable, Behavior is calm, cooperative, jj7 appropriate for age, drowsy. Pain: Denies pain. GI: Reports nausea, vomiting. Historical: - Allergies: 03:18 No Known Allergies; jj7 - Home Meds: 05:45 atorvastatin oral [Active]; Lisinopril Oral [Active]; Vyvanse oral [Active]; carvedilol jj7 oral [Active]; Plavix 75 mg Oral tablet 1 tab daily [Active]; Furosemide Oral [Active]; - PMHx: 03:18 CAD; Diabetes - NIDDM; heart attack; Hepatitis C; Hyperlipidemia; Hypertension; jj7 Myocardial infarction; - PSHx: 03:18 None; jj7 - Immunization history:: Adult Immunizations up to date. - Infectious Disease History:: Denies. - Social history:: Smoking status: Patient denies any tobacco usage or history of. Patient/guardian denies using alcohol, street drugs, IV drugs. Screenin:19 Abuse screen: Denies threats or abuse. Nutritional screening: No deficits noted. jj7 Tuberculosis screening: No symptoms or risk factors identified. 05:43 [facility] ED Fall Risk Assessment (Adult) History of falling in the last 3 months, jj7 including since admission No falls in past 3 months (0 pts) Confusion or Disorientation No (0 pts) Intoxicated or Sedated No (0 pts) Impaired Gait No (0 pts) Mobility Assist Device Used No (0 pt) Altered Elimination No (0 pt) Score/Fall Risk Level 0 - 2 = Low Risk Oriented to surroundings, Maintained a safe environment, Educated pt \T\ family on fall prevention, incl call for assistance when getting out of bed, Assessed \T\ reinforced patient's understanding of fall precautions. Assessment: 03:19 Reassessment: SEE TRIAGE ASSESSMENT. jj7 05:44 GI: Patient currently denies abdominal pain, nausea, vomiting. jj7 06:38 Reassessment: PT SLEEPING. NO DISTRESS NOTED. jj7 07:15 General: Appears in no apparent distress. comfortable, well groomed, well developed, kc6 Behavior is calm, cooperative, appropriate for age. Pain: Denies pain. Neuro: Level of Consciousness is awake, alert, obeys commands, Oriented to person, place, time, situation, Appropriate for age. Cardiovascular: Denies chest pain, Capillary refill < 3 seconds Rhythm is regular. Respiratory: Airway is patent Trachea midline Respiratory effort is even, unlabored, Respiratory pattern is regular, symmetrical. GI: Abdomen is round non-distended, Bowel sounds present X 4 quads. Abd is soft X 4 quads Reports nausea, vomiting, Patient currently denies abdominal pain, diarrhea. : No signs and/or symptoms were reported regarding the genitourinary system. Urine is clear. EENT: No signs and/or symptoms were reported regarding the EENT system. Derm: No signs and/or symptoms reported regarding the dermatologic system. Skin is intact, is healthy with good turgor, Skin is pink, warm \T\ dry. Musculoskeletal: No signs and/or symptoms reported regarding the musculoskeletal system. Circulation, motion, and sensation intact. Range of motion: intact in all extremities. 08:41 Reassessment: Patient appears in no apparent distress at this time. No changes from kc6 previously documented assessment. Patient and/or family updated on plan of care and expected duration. Pain level reassessed. Patient is alert, oriented x 3, equal unlabored respirations, skin warm/dry/pink. 09:41 Reassessment: Patient appears in no apparent distress at this time. No changes from kc6 previously documented assessment. Patient and/or family updated on plan of care and expected duration. Pain level reassessed. Patient is alert, oriented x 3, equal unlabored respirations, skin warm/dry/pink. Vital Signs: 03:15 BP 180 / 74; Pulse 70; Resp 16; Temp 97.9; Pulse Ox 100% ; Weight 66.22 kg; Height 5 jj7 ft. 2 in. ; Pain 0/10; 04:00 BP 189 / 91; Pulse 64; Resp 16; Pulse Ox 100% ; jj7 05:20 BP 179 / 76; Pulse 80; Resp 17; Pulse Ox 100% ; jj7 06:38 BP 126 / 76; Pulse 73; Resp 17; Pulse Ox 99% ; jj7 07:34 BP 112 / 72; Pulse 80; Resp 17 S; Pulse Ox 99% on R/A; Pain 0/10; kc6 08:41 BP 126 / 64; Pulse 77; Resp 17 S; Pulse Ox 100% on R/A; kc6 03:15 Body Mass Index 26.70 (66.22 kg, 157.48 cm) jj7 03:15 Pain Scale: Adult jj7 07:34 Pain Scale: Adult kc6 ED Course: 03:06 Patient arrived in ED. jj7 03:06 Donato Walden MD is Attending Physician. [facility] 03:15 Patient has correct armband on for positive identification. Bed in low position. Call jj7 light in reach. Side rails up X2. Provided Education on: USE OF CALL BONNER. 03:18 Triage completed. jj7 03:18 Arm band placed on right wrist. Patient placed in an exam room, on a stretcher. jj7 03:45 Missed attempt(s): 20 gauge in right antecubital area. Bleeding controlled, band aid jj7 applied, catheter tip intact. 03:45 Missed attempt(s): 22 gauge in left antecubital area. Bleeding controlled, band aid jj7 applied, catheter tip intact. 03:46 Missed attempt(s): 22 gauge in left hand. Bleeding controlled, band aid applied, jj7 catheter tip intact. 03:57 Inna Pryor, RN is Primary Nurse. jj7 03:59 Inserted saline lock: 20 gauge in right antecubital area, using aseptic technique. jj7 Blood collected. Flushed with 10 mL NS. 04:00 Basic Metabolic Panel Sent. jj7 04:00 CBC with Diff Sent. jj7 04:00 LFT's Sent. jj7 04:00 Magnesium Sent. jj7 04:00 NT PRO-BNP Sent. jj7 04:00 PT-INR Sent. jj7 04:00 Troponin HS Sent. jj7 04:05 XRAY Chest (1 view) In Process Unspecified. EDMS 04:08 CT Abd/Pelvis - Without Contrast In Process Unspecified. EDMS 04:35 Robbie Luong MD is Hospitalizing Provider. [facility] 05:43 UA Rfx Pedro Cult if indicated Sent. jj7 07:00 Report received from JALIL ESPINOZA. kc 07:00 Patient has correct armband on for positive identification. Bed in low position. Call [facility] light in reach. Side rails up X2. youth nutritional monitor on. Pulse ox on. NIBP on. Door closed. Noise minimized. Lights dimmed. Warm blanket given. Pillow given. Verbal reassurance given. 07:24 Report given to REPORT GIVEN TO JANEL JIMENES. jj7 09:07 Diet: Patient given juice. Tolerated well. Assisted to bathroom. [facility] 09:41 No provider procedures requiring assistance completed. Patient admitted, IV remains in kc place. 09:41 Patient maintains SpO2 saturation greater than 95% on room air. kc 13:32 Primary Nurse role handed off by Inna Pryor, JALIL jl7 14:20 Janel Santana, RN is Primary Nurse. kc6 Administered Medications: 03:59 Drug: NS 0.9% IV 1000 ml IV at 1000 ml once; to be given as a bolus over 60 minutes jj7 Route: IV; Rate: 1000 ml; Site: right antecubital; 07:35 Follow up: Response: No adverse reaction; IV Status: Completed infusion; IV Intake: kc6 1000ml 03:59 Not Given (Physician Discretion; pt feelig better. n/v resolvedd): ondansetron 8 mg IVP jj7 once; over 2 minutes 04:00 Not Given (Physician Discretion; n/v resolvedd): [id number] mg IVP once; dilute with jj7 10 mL 0.9% NaCl; give over 2 minutes 05:42 Drug: Aspirin PO Chewable Tablet 81 mg PO once Route: PO; jj7 07:35 Follow up: Response: No adverse reaction kc6 05:42 Drug: Enoxaparin Sub-Q 1 mg/kg Sub-Q once Route: Sub-Q; Site: abdomen; jj7 07:35 Follow up: Response: No adverse reaction kc6 Medication: 03:19 VIS not applicable for this client. jj7 Intake: 07:35 IV: 1000ml; Total: 1000ml. kc6 Outcome: 04:40 Decision to Hospitalize by Provider. chanel 09:41 Admitted to ER Hold. Please see [facility] for further documentation. 6 09:41 Condition: good 09:41 Instructed on the need for admit, 15:12 Patient left the ED. kc6 Signatures: Dispatcher [employer] EDDonato Morocho MD MD cha Leal, Jahala RN RN jl7 Janel Santana RN RN kc6 Inna Pryor RN RN jj7
[2024-07-31] MEDS ORDERED: ASPIRIN 81 MG CHEWABLE TABLET ONE (05:34)
[2024-07-31] MEDS ORDERED: ENOXAPARIN 60 MG/0.6 ML SQ ONE (05:34)
[2024-07-31 05:45] LABS: Specific Gravity 1.007 (1.005-1.030); Urine Bilirubin NEGATIVE (Negative); Urine Blood Negative (Negative); Urine Clarity Clear (Clear); Urine Color Colorless (Yellow); Urine Glucose 3+ (Negative); Urine Ketones NEGATIVE (Negative); Urine Microscopic Reflex YN NO UMIC; Urine Nitrite NEGATIVE (Negative); Urine Protein NEGATIVE (Negative); Urine Urobilinogen Normal (Normal)
--- NOTE | 2024-07-31 05:48 | RAD REPORT ---
CLINICAL HISTORY: Abdominal distention. COMPARISON: None. TECHNIQUE: XR CHEST 1 VIEW 07/31/2024 3:08 AM CDT FINDINGS: Heart is mildly enlarged following sternotomy. Lungs are clear without consolidation, atelectasis, ma ss or edema. There is no pleural effusion. There is no pneumothorax. There are no acute osseous findings. IMPRESSION: Clear lungs. Electronically signed by: Rajat Cheung MD 07/31/2024 05:43 AM CDT RP Due to temporary technical issues with the PACS/[employer] reporting system, reports are being chang d by the in-house radiologist without review as a courtesy to ensure prompt reporting the interpreting radiologist is fully responsible for the content of the report. Transcribed Date/Time: 07/31/2024 5:47 AM
--- NOTE | 2024-07-31 05:55 | RAD REPORT ---
CLINICAL HISTORY: Abd pain, Nausea/vomiting. COMPARISON: None. TECHNIQUE: CT ABDOMEN PELVIS WITHOUT IV CONTRAST on 07/31/2024 3:08 AM CDT This exam was performed according to our departmental dose-optimization program, which includes autom ated exposure control, adjustment of the mA and/or kV according to patient size and/or use of iterative reconstruction technique. FINDINGS: Lower lungs are clear. Abdomen: The liver is normal in appearance. There is no biliary dilatation. Cholecystectomy was perfo rmed. The pancreas and spleen are normal in appearance. Adrenal glands are normal. Kidneys are mildly atrophic. Lower pole right renal cyst measures 18 mm. There is no definite hydronephrosis. Abdominal aorta is normal in course and caliber without aneurysm. There is no free air. There is no r etroperitoneal adenopathy. Pelvis: There is no bowel obstruction. Urinary bladder is unremarkable. There is no free fluid. Uteru s is poorly seen. Appendix is normal. Skeleton: There are no acute osseous findings. No suspicious bony lesions. IMPRESSION: No definite acute process. Electronically signed by: Rajat Cheung MD 07/31/2024 05:51 AM CDT RP Due to temporary technical issues with the PACS/[employer] reporting system, reports are being chang d by the in-house radiologist without review as a courtesy to ensure prompt reporting the interpreting radiologist is fully responsible for the content of the report. Transcribed Date/Time: 07/31/2024 5:55 AM
[2024-07-31] MEDS ORDERED: ONDANSETRON 4 MG/2 ML VIAL IV PRN (09:45)
[2024-07-31] MEDS ORDERED: ACETAMINOPHEN 325 MG TABLET PO PRN (09:45)
[2024-07-31] MEDS: NA CHLORIDE 0.9% 1,000 ML IV SCH (10:00)
--- NOTE | 2024-07-31 10:47 | P.HP ---
Patient History Date of Service: 07/31/24 Reason for admission: Weakness associated with nausea and vomiting, elevated tro ponin History of Present Illness: Miya Emanuel is a 78 year old female with pmhx CAD s/p 3 vessel CABG (2006), Diabetes - NIDDM, GA, Hepatitis C, Hyperlipidemia, Hypertension, who presents to the ED with complaints of nausea, vomiting, and weakness that began last night. Evaluation in the ER showing troponin of 74.9. On evaluation, she is sleeping comfortably, no complaints of abdominal palpation, no complaint of nausea or vomiting, reports she is feeling better. Laboratory evaluation significant for BUN/creatinine 27/1.38, GFR 39, troponin 74.9/81.9. Chest x-ray reports "Clear lungs." CT abd/pelvis reports "No definite acute process." Angio admitted to hospitalist service for further evaluation of elevated troponin and weakness. Allergies No Known Drug Allergies Allergy (Verified 06/21/15 11:58) Unknown Home Medications: carvediloL [Coreg*] 12.5 mg PO BID 05/25/14 Aspirin [Adult Low Dose Aspirin EC] 81 mg PO DAILY 06/21/15 Clopidogrel Bisulfate [Plavix*] 75 mg PO DAILY 06/21/15 Amlodipine [Norvasc*] 5 mg PO DAILY 03/23/23 Atorvastatin Calcium [Lipitor] 40 mg PO BEDTIME 03/23/23 Insulin Degludec [Tresiba Flextouch U-200] 20 units SQ DAILY 03/23/23 lisinopriL [Zestril] 20 mg PO DAILY 03/23/23 Empagliflozin [Jardiance] 25 mg PO DAILY 07/31/24 Furosemide [Lasix] 20 mg PO DAILY 07/31/24 Semaglutide [Ozempic] 1.5 mg SQ EVERY 7TH DAY 07/31/24 Sodium Zirconium Cyclosilicate [Lokelma] 10 gm PO DAILY 07/31/24 - Past Medical/Surgical History Diabetic: Yes -: DIABETES-NIDDM -: HIGH CHOLESTEROL -: HEPATITIS C -: HTN -: hyperlipidemia -: GA -: cva -: TRIPLE BYPASS -: right upper leg stent -: right lower leg stent Psychosocial/ Personal History: Lives at home, speaking on phone to her Brother - Family History Mother -: Heart disease, Hypertension, Diabetes, Other (see notes) Notes: DEMENTIA Father -: Heart disease, Diabetes, Other (see notes) Notes: HEART ATTACK - Social History Smoking Status: Never smoker Alcohol use: No CD- Drugs: No Caffeine use: Yes Review of Systems Other: per HPI Physical Examination - Physical Exam General: Alert, In no apparent distress, Oriented x3 HEENT: Atraumatic, Normocephalic, PERRLA Neck: Supple, 2+ carotid pulse no bruit Respiratory: Clear to auscultation bilaterally, Normal air movement Cardiovascular: Normal pulses, Regular rate/rhythm, Normal S1 S2 Capillary refill: <2 Seconds Gastrointestinal: Normal bowel sounds, Soft and benign, No tenderness (to palpation) Musculoskeletal: No clubbing Integumentary: No rashes Neurological: Normal speech, Normal tone - Studies Laboratory Data (last 24 hrs) 07/31/24 07/31/24 07/31/24 03:57 03:57 03:57 WBC 8.80 Hgb 13.6 Hct 40.9 Plt Count 216 PT 11.3 INR 0.99 Sodium 136 Potassium 3.7 BUN 27 H Creatinine 1.38 H Glucose 106 Magnesium 2.3 Total Bilirubin 0.5 AST 14 L ALT 17 Alkaline Phosphatase 76 Lipase 60 Assessment and Plan - Plan Assessment and Plan Weakness associated with nausea and vomiting -CT abd/pelvis reports "No definite acute process." -Antiemetic -Cipro/ flagyl -Protonix BID -NPO -UDS pending -Physical therapy Elevated troponin CAD s/p 3 vessel CABG (2006) Myocardial infarction - EKG: No obvious ST segment changes - troponin 74, Serial pending - Ordered transthoracic echocardiogram - chest x-ray reports "Clear lungs." - Consult Cardiology - recommendations appreciated - NPO for cardiology intervention - S/P aspirin 324 mg PO x 1 in ED - Start daily baby aspirin and statin - Symptom control with PRN acetaminophen - continuous telemetry - TSH/FreeT4, A1C, lipid panel pending DM-NIDDM -accucheck with SSI Hepatitis C Hypertension Hyperlipidemia -continue home medications DVT ppx Discharge Plan: Home Plan to discharge in: 24 Hours - Advance Directives Does patient have a Living Will: No Does patient have a Durable POA for Healthcare: Yes
[2024-07-31] MEDS ORDERED: D10W 125 ML IV PRN (11:50)
[2024-07-31] MEDS: D50W 25 GM/50 ML SYRINGE IV PRN (11:51)
[2024-07-31] MEDS: SODIUM CHLORIDE 0.9% 10ML INJ IV PRN (11:51)
[2024-07-31] MEDS ORDERED: D5 0.9 NS 1,000 ML IV ONE (11:57)
[2024-07-31] MEDS: D5 0.9 NS 1,000 ML IV SCH (12:00)
--- NOTE | 2024-07-31 15:17 | ECHO ---
HEIGHT: 5 ft 2 in WEIGHT: 145 lb 0 oz DATE OF STUDY: 07/31/[address]: Parisa Moore NP 2-DIMENSIONAL: YES M.MODE: YES DOPPLER: YES COLOR FLOW: YES TDS: NO PORTABLE: YES DEFINITY: NO BUBBLE STUDY: NO DIAGNOSIS: ELEVATED TROPONIN/HISTORY OF CORONARY ARTERY BYPASS GRAFT CARDIAC HISTORY: CATHERIZATION: YES SURGERY: YES PROSTHETIC VALVE: NO PACEMAKER: NO MEASUREMENTS (cm) DIASTOLIC (NORMALS) SYSTOLIC (NORMALS) IVSd 0.9 (0.6-1.2) LA Diam 3.1 (1.9-4.0) LVEF 55-60% LVIDd 3.3 (3.5-5.7) LVIDs 2.4 (2.0-3.5) %FS 28% LVPWd 1.2 (0.6-1.2) Ao Diam 2.9 (2.0-3.7) 2 DIMENSIONAL ASSESSMENT: RIGHT ATRIUM: NORMAL LEFT ATRIUM: NORMAL RIGHT VENTRICLE: NORMAL LEFT VENTRICLE: NORMAL TRICUSPID VALVE: MILD TRICUSPID REGURGITATION MITRAL VALVE: MITRAL ANNULAR CALCIFICATION WITH MILD MITRAL REGURGITATION PULMONIC VALVE: NORMAL AORTIC VALVE: MODERATE AORTIC INSUFFICIENCY PERICARDIAL EFFUSION: NONE AORTIC ROOT: NORMAL. LEFT VENTRICULAR WALL MOTION: NORMAL. DOPPLER/COLOR FLOW: SEE BELOW. COMMENTS: 1. NORMAL LEFT VENTRICULAR EJECTION FRACTION 55-60% WITH NORMAL WALL MOTION. 2. MITRAL ANNULAR CALCIFICATION WITH MILD TO MODERATE MITRAL REGURGITATION 3. MODERATE AORTIC INSUFFICIENCY. 4. MILD TRICUSPID REGURGITATION TECHNOLOGIST: IRIS LEDESMA
[2024-07-31] MEDS: METRONIDAZOLE 500mg IVPB 500 MG/100 ML BAG IV SCH (17:43)
--- NOTE | 2024-07-31 18:59 | CON ---
Date of Consultation: 07/31/2024 Reason For Consultation: Elevated troponin. History Of Present Illness: This is a 78-year-old female, presented to the emergency room with gener alized weakness along with nausea and vomiting. Denies having any chest pain. Mild abdominal discom fort. No diarrhea. Past Medical History: Hypertension, dyslipidemia, hepatitis C, diabetes. Medications: Refer to reconciliation sheet for detailed list. Allergies: NO KNOWN DRUG ALLERGIES. Family History: No premature coronary artery disease or cancer. Social History: She does not smoke or drink. Does not use any drugs. Review of Systems: All systems reviewed and they were negative except as mentioned in the HPI. Past Surgical History: Coronary artery bypass surgery. Physical Examination: Vital Signs: Reviewed. Head and Neck: Pupils are equal, reactive to light. Intact eye movements. No JVD. No cervical lym phadenopathy. Neck is supple. Thyroid is not enlarged. Lungs: Clear to auscultation bilaterally. No rhonchi, wheezing, or crackles. No accessory muscle u se. Heart: Regular rate and rhythm. No extra sounds. Abdomen: Soft, nontender. Bowel sounds positive. No organomegaly. No masses or hernia. No rigidi ty or rebound. Extremities: No edema, clubbing, or cyanosis. Intact pulses. Skin: No rash. No nodules. Neurologic: Alert, awake, and oriented x3. No acute focal deficits appreciated. Investigations: Troponin 74 and then 81, BUN 27, and creatinine 1.3, and hemoglobin is 13.6. Assessment And Recommendations: 1. Elevated troponin, known coronary artery disease, status post coronary artery bypass graft. She d oes not have any chest pain. This is likely demand. Recommend to check another set of cardiac enzym es in 8 hours. If no significant delta, then from my perspective, she can be evaluated on an outpati ent basis with a stress test. 2. Dyslipidemia, on statin to continue. 3. Nausea, vomiting, and possible gastroenteritis. She is being worked up and Cardiology will follow . If her troponin substantially goes up, then further workup to be done, otherwise outpatient stress test with her primary lens coater. SR/MODL Voice ID: [id number] Report ID: [id number]
[2024-07-31] MEDS: Ciprofloxacin 200mg IV 200 MG/100 ML IV.SOLN. IV SCH (20:11)
[2024-07-31] MEDS: ENOXAPARIN 60 MG/0.6 ML SQ SCH (20:13)
[2024-07-31] MEDS: PANTOPRAZOLE 40 MG INJ IVP SCH (20:13)
[2024-07-31] MEDS: ATORVASTATIN 40 MG TAB PO SCH (20:13)
[2024-07-31] MEDS: carvediloL 6.25 MG TAB PO SCH (21:00)
[2024-07-31] MEDS ORDERED: ATORVASTATIN 40 MG TAB PO SCH (21:00)
[2024-08-01 02:02] LABS: Barbiturates NEGATIVE (NEGATIVE); Benzodiazepines NEGATIVE (NEGATIVE); Cocaine NEGATIVE (NEGATIVE); METHAMPHETAM NEGATIVE (NEGATIVE); Methadone NEGATIVE (NEGATIVE); Opiates NEGATIVE (NEGATIVE); Phencyclidine NEGATIVE (NEGATIVE); THC Cannibis NEGATIVE (NEGATIVE)
[2024-08-01 06:02] LABS: Absolute Lymphocytes (CBC) 2.4 K/uL (0.7-4.9); Absolute Monocytes 0.4 K/uL (0.1-1.3); Absolute Neutrophil 1.9 K/uL (1.8-8.0); Basophils % 0.3 % (0-1.3); Eosinophils % 0.9 % (0-4.4); Hematocrit 35.1 % (36.0-45.0); Hemoglobin 11.6 g/dL (12.0-15.0); MCH 27.8 pg (27.0-35.0); MCHC 32.9 g/dL (32.0-36.0); MCV 84.6 fL (80-100); Monocytes % 7.5 % (3.3-12.3); Neutrophils % 40.3 % (41.7-73.7); Nucleated Red Blood Cells % 0.2 % (0-0); Platelets 213 thou/uL (152-406); RBC Red Blood Cell Count 4.15 M/uL (3.86-4.86); Red Cell Distribution Width 15.1 % (12.1-15.2)
[2024-08-01 06:59] LABS: Anion Gap 11.5 mEq/L (5.0-15.0); Magnesium 2.1 mg/dL (1.6-2.4); Phosphorus 2.7 mg/dL (2.5-4.9); Potassium 3.5 mEq/L (3.5-5.1); Thyroid Stimulating Hormone 0.941 uIU/mL (0.358-3.740)
[2024-08-01] MEDS: EMPAGLIFLOZIN 25 MG PO SCH (09:00)
[2024-08-01] MEDS ORDERED: ASPIRIN EC 81 MG TAB PO SCH (09:00)
[2024-08-01] MEDS: CLOPIDOGREL 75 MG TABLET PO SCH (11:11)
[2024-08-01] MEDS: lisinopriL 20 MG TAB PO SCH (11:11)
[2024-08-01] MEDS: FUROSEMIDE 20 MG TABLET PO SCH (11:12)
[2024-08-01] MEDS: ASPIRIN EC 81 MG TAB PO SCH (11:12)
[2024-08-01] MEDS: AMLODIPINE 5 MG TAB PO SCH (11:12)
[2024-08-01] MEDS: POTASSIUM CL SA 10 MEQ TAB PO ONE (12:43)
--- NOTE | 2024-08-01 21:35 | P.PN ---
Date of Service: 08/01/24 Subjective Awake and feeling much better, ambulating independently in her room clarifies N/V was a sudden onset that woke her up at 2 am day of admission will continue to monitor troponin and telemetry ROS 10 point ROS as noted above, otherwise negative Physical Exam General: Alert and Oriented x3, NAD HEENT: Atraumatic, Normocephalic, PERRLA Respiratory: Clear to auscultation bilaterally, Normal air movement, on RA Cardiovascular: NSR, Normal S1 S2 Capillary refill: <2 Seconds Gastrointestinal: Soft and benign on palpation, No tenderness (to palpation) Musculoskeletal: No clubbing Integumentary: No rashes Neurological: Normal speech, Normal tone Vitals Reviewed Problem list Weakness associated with nausea and vomiting Elevated troponin CAD s/p 3 vessel CABG (2006) Myocardial infarction DM-NIDDM Hepatitis C Hypertension Hyperlipidemia Assessment and Plan Weakness associated with nausea and vomiting -CT abd/pelvis reports "No definite acute process." -Antiemetic -Cipro/ flagyl -Protonix BID -UDS negative -Physical therapy consulted Elevated troponin CAD s/p 3 vessel CABG (2006) Myocardial infarction - EKG: No obvious ST segment changes - troponin 74/81/75/78 - Ordered transthoracic echocardiogram - chest x-ray reports "Clear lungs." - Cardiology Following - S/P aspirin 324 mg PO x 1 in ED - Start daily baby aspirin and statin - Symptom control with PRN acetaminophen - continuous telemetry - TSH/FreeT4, lipid panel WNL DM-NIDDM- hypoglycemic -accucheck with SSI -reduced PO intake d/t not liking the food Hepatitis C Hypertension Hyperlipidemia -continue home medications DVT ppx Discharge Plan: Home Plan to discharge in: 24 Hours
--- NOTE | 2024-08-02 07:22 | P.PN ---
Date of Service: 08/02/24 Subjective awake and feeling well this morning Some bradycardia through out the day, transfer to ICU for continued monitoring- Miya reports not feeling well and being very tired stopped coreg, Cardiology to re-evaluate in the morning ROS 10 point ROS as noted above, otherwise negative Physical Exam General: Alert and oriented x3, NAD Respiratory: nonlabored breathing, on RA Cardiovascular: Irregular rhythm with bradycardia, Normal S1 S2 Capillary refill: <2 Seconds Gastrointestinal: Soft on palpation, No tenderness (to palpation) Musculoskeletal: No clubbing Integumentary: No rashes Neurological: Normal speech, Normal tone Vitals Reviewed Problem list Weakness associated with nausea and vomiting likely 2/2 to bradycardia Elevated troponin CAD s/p 3 vessel CABG (2006) Myocardial infarction DM-NIDDM Hepatitis C Hypertension Hyperlipidemia Assessment and Plan Weakness associated with nausea and vomiting likely 2/2 to bradycardia -CT abd/pelvis reports "No definite acute process." -Antiemetic -Stopped Cipro/ flagyl -Protonix BID -UDS negative -Physical therapy consulted -May be cardiac related, will continue to monitor Elevated troponin CAD s/p 3 vessel CABG (2006) Myocardial infarction - EKG: No obvious ST segment changes - troponin 74/81/75/78 - preliminary transthoracic echocardiogram reports "normal EF, mitral annular calcification with mild to moderate mitral regurgitation, morderate aortic insufficiency, mild tricuspid regurgitation" - chest x-ray reports "Clear lungs." - Cardiology Following-recommend inpatient for continued monitoring - S/P aspirin 324 mg PO x 1 in ED - Start daily baby aspirin and statin - Symptom control with PRN acetaminophen - continuous telemetry - TSH/FreeT4, lipid panel WNL DM-NIDDM- hypoglycemic -accucheck with SSI -reduced PO intake d/t not liking the food Hepatitis C Hypertension Hyperlipidemia -continue home medications DVT ppx Discharge Plan: Home Plan to discharge in: 24 Hours
[2024-08-02 08:36] LABS: Absolute Eosinophils 0.1 K/uL (0-0.5); Absolute Lymphocytes (CBC) 1.8 K/uL (0.7-4.9); Absolute Monocytes 0.4 K/uL (0.1-1.3); Absolute Neutrophil 1.9 K/uL (1.8-8.0); Basophils % 0.6 % (0-1.3); Hematocrit 35.6 % (36.0-45.0); Hemoglobin 11.7 g/dL (12.0-15.0); Lymphocytes % 41.8 % (15.3-44.8); MCH 27.7 pg (27.0-35.0); MCHC 32.9 g/dL (32.0-36.0); MCV 84.1 fL (80-100); MPV 9.1 fL (7.6-11.3); Monocytes % 8.4 % (3.3-12.3); Neutrophils % 46.2 % (41.7-73.7); Nucleated Red Blood Cells % 0.1 % (0-0); Platelets 218 thou/uL (152-406); RBC Red Blood Cell Count 4.23 M/uL (3.86-4.86); Red Cell Distribution Width 15.5 % (12.1-15.2)
[2024-08-02 08:49] LABS: Phosphorus 2.4 mg/dL (2.5-4.9)
[2024-08-02] MEDS: ATROPINE SULFATE 1 MG/ML INJ IV ONE (14:44)
[2024-08-02 16:14] LABS: Anion Gap 9.6 mEq/L (5.0-15.0); Phosphorus 2.8 mg/dL (2.5-4.9)
[2024-08-02 16:15] LABS: Magnesium 1.9 mg/dL (1.6-2.4); Potassium 4.6 mEq/L (3.5-5.1)
[2024-08-02 16:17] LABS: Troponin High Sensitivity 77.2 pg/mL (<58.9)
[2024-08-02] MEDS: HYDRALAZINE HCL 20 MG/ML VIAL IV PRN (17:14)
[2024-08-03 05:16] LABS: Absolute Eosinophils 0.3 K/uL (0-0.5); Absolute Lymphocytes (CBC) 2.7 K/uL (0.7-4.9); Absolute Monocytes 0.5 K/uL (0.1-1.3); Basophils % 0.8 % (0-1.3); Eosinophils % 4.8 % (0-4.4); Hematocrit 36.5 % (36.0-45.0); Hemoglobin 12.1 g/dL (12.0-15.0); Lymphocytes % 48.9 % (15.3-44.8); MCH 27.9 pg (27.0-35.0); MCHC 33.1 g/dL (32.0-36.0); MCV 84.5 fL (80-100); MPV 9.5 fL (7.6-11.3); Monocytes % 9.3 % (3.3-12.3); Neutrophils % 36.2 % (41.7-73.7); Nucleated Red Blood Cells % 0.2 % (0-0); Platelets 211 thou/uL (152-406); RBC Red Blood Cell Count 4.32 M/uL (3.86-4.86); Red Cell Distribution Width 15.9 % (12.1-15.2)
[2024-08-03 05:35] LABS: Anion Gap 9.1 mEq/L (5.0-15.0); Magnesium 1.9 mg/dL (1.6-2.4); Phosphorus 3.2 mg/dL (2.5-4.9); Potassium 4.1 mEq/L (3.5-5.1)
--- NOTE | 2024-08-03 10:53 | P.PN ---
Subjective Date of Service: 08/03/24 Chief Complaint: Weakness associated with nausea and vomiting, elevated troponin Subjective: No new changes, No C/O voiced, Tolerating diet, Ambulating, Improving Review of Systems 10-point ROS is otherwise unremarkable Physical Examination - Vital Signs Temperature: 97.2 F Blood Pressure: 119/61 Pulse: 74 Respirations: 14 Pulse Ox (%): 99 - Physical Exam General: Alert, In no apparent distress HEENT: Atraumatic, PERRLA, EOMI Neck: Supple, JVD not distended Respiratory: Clear to auscultation bilaterally, Normal air movement Cardiovascular: Regular rate/rhythm, Normal S1 S2 Gastrointestinal: Normal bowel sounds, No tenderness Musculoskeletal: No tenderness Integumentary: No rashes Neurological: Normal speech, Normal tone, Normal affect Lymphatics: No axilla or inguinal lymphadenopathy - Studies Medications List Reviewed: Yes Assessment And Plan - Current Problems (Diagnosis) (1) CAD (coronary artery disease) of artery bypass graft Current Visit: Yes Status: Acute Plan: with history of CABG, patient denies chest pain, troponin leak is very mild with no significant delta. patient follow up with her cardiac surgeon and she is scheduled to see them saturday can follow up with us as outpatient and will get Records and cardiac PET if needed. No further in patient cardiac work up needed. (2) Chronic diastolic heart failure Current Visit: Yes Status: Acute Plan: patient looks euvolemic on exam continue current medications, avoid AVN blocking agents due to bradycardia. outpatient follow up to adjust medications. (3) Bradycardia Current Visit: Yes Status: Acute Plan: there was concerns for second degree type 2 heart block, did not see that on tele overnight or even on rhythm strip. continue to avoid AVN blocking agents continue to monitor on tele overnight. if no heart block then outpatient follow up with cardiology for event monitor
--- NOTE | 2024-08-03 11:57 | EKG ---
Test Date: 2024-08-02 Test Time: 13:52:13 Paratransit Operator: CMAP MEASUREMENT RESULTS: Intervals: Rate: 78 DE: 152 QRSD: 94 QT: 406 QTc: 462 [place]: P: 118 DE: 152 QRS: 166 T: 207 INTERPRETIVE STATEMENTS: Suspect arm lead reversal, interpretation assumes no reversal Sinus rhythm with premature atrial complexes Left posterior fascicular block Inferior infarct, age undetermined Abnormal ECG Compared to ECG 07/31/2024 03:51:15 Atrial premature complex(es) now present Left posterior fascicular block now present Myocardial infarct finding still present Electronically Signed On 08-03-24 11:56:26 CDT by Fransisco Cheung
--- NOTE | 2024-08-03 12:08 | EKG ---
Test Date: 2024-07-31 Test Time: 03:51:15 Crm Administrator: ALEXIS MEASUREMENT RESULTS: Intervals: Rate: 68 OR: 176 QRSD: 112 QT: 422 QTc: 448 [place]: P: 52 OR: 176 QRS: 22 T: -40 INTERPRETIVE STATEMENTS: Normal sinus rhythm Possible Left atrial enlargement Inferior infarct, age undetermined Cannot rule out Anterior infarct, age undetermined Abnormal ECG Compared to ECG 11/04/2023 19:53:21 Atrial premature complex(es) no longer present Myocardial infarct finding still present Electronically Signed On 08-03-24 12:06:09 CDT by Fransisco Cheung
--- NOTE | 2024-08-03 14:16 | P.PN ---
Date of Service: 08/03/24 Subjective No further episodes of bradycardia or heart block noted on telemetry Beta-blockers on hold ROS 10 point ROS as noted above, otherwise negative Physical Exam General: Alert and oriented x3, NAD Respiratory: nonlabored breathing, on RA Cardiovascular: Regular rate and rhythm, Normal S1 S2 Capillary refill: <2 Seconds Gastrointestinal: Soft on palpation, No tenderness (to palpation) Musculoskeletal: No clubbing Integumentary: No rashes Neurological: Normal speech, Normal tone Vitals Reviewed Problem list Weakness associated with nausea and vomiting likely 2/2 to bradycardia Elevated troponin CAD s/p 3 vessel CABG (2006) Myocardial infarction DM-NIDDM Hepatitis C Hypertension Hyperlipidemia Plan Weakness associated with nausea and vomiting likely 2/2 to bradycardia -CT abd/pelvis reports "No definite acute process." -Protonix BID -Physical therapy consulted -May be cardiac related, will continue to monitor -Beta-codey discontinued, sinus rhythm -Cardiology reviewed telemetry, rhythm strips and did not see any significant blocks present - Nausea/vomiting improving Elevated troponin CAD s/p 3 vessel CABG (2006) Myocardial infarction - EKG: No obvious ST segment changes - troponin 74/81/75/78 - preliminary transthoracic echocardiogram reports "normal EF, mitral annular calcification with mild to moderate mitral regurgitation, morderate aortic insufficiency, mild tricuspid regurgitation" - chest x-ray reports "Clear lungs." - S/P aspirin 324 mg PO x 1 in ED - Start daily baby aspirin and statin - Symptom control with PRN acetaminophen - continuous telemetry - TSH/FreeT4, lipid panel WNL DM-NIDDM- hypoglycemic -accucheck with SSI -reduced PO intake d/t not liking the food Hepatitis C Hypertension Hyperlipidemia -continue home medications Discharge Plan: Home Plan to discharge in: 24 Hours
[2024-08-03] MEDS ORDERED: BENZONATATE 100 MG CAP PO PRN (16:56)
[2024-08-03] MEDS ORDERED: CHLORASEPTIC LOZENGES PO PRN (16:56)
[2024-08-04 00:11] VITALS: O2SAT 100
[2024-08-04 05:59] LABS: Hematocrit 36.4 % (36.0-45.0); Hemoglobin 12.1 g/dL (12.0-15.0); MCH 27.8 pg (27.0-35.0); MCHC 33.1 g/dL (32.0-36.0); MCV 83.9 fL (80-100); MPV 8.9 fL (7.6-11.3); Platelets 227 thou/uL (152-406); RBC Red Blood Cell Count 4.34 M/uL (3.86-4.86); Red Cell Distribution Width 15.5 % (12.1-15.2)
[2024-08-04 06:19] LABS: Anion Gap 7.8 mEq/L (5.0-15.0)
[2024-08-04 06:21] LABS: Potassium 3.8 mEq/L (3.5-5.1)
[2024-08-04] MEDS: ENOXAPARIN 40 MG/0.4 ML SQ SCH (09:53)
[2024-08-04] MEDS: POTASSIUM CL SA 10 MEQ TAB PO ONE (09:53)
--- NOTE | 2024-08-04 12:00 | P.PN ---
Date of Service: 08/04/24 Subjective Had a few episodes of bradycardia overnight nonsustained but heart rate dropping to the 30s Patient reports feeling weak, lightheaded Carvedilol has now been on hold for around 48 hours ROS 10 point ROS as noted above, otherwise negative Physical Exam General: Alert and oriented x3, NAD Respiratory: nonlabored breathing, on RA Cardiovascular: Regular rate and rhythm, Normal S1 S2 Capillary refill: <2 Seconds Gastrointestinal: Soft on palpation, No tenderness (to palpation) Musculoskeletal: No clubbing Integumentary: No rashes Neurological: Normal speech, Normal tone Vitals Reviewed Problem list Second-degree type II heart block Weakness associated with nausea and vomiting likely 2/2 to bradycardia Elevated troponin CAD s/p 3 vessel CABG (2006) Myocardial infarction DM-NIDDM Hepatitis C Hypertension Hyperlipidemia Plan Second-degree type II heart block Cardiology has reviewed overnight rhythm strips, there is concern for second- degree type II heart block Patient symptomatic, cardiology recommends transfer for EP evaluation likely pacemaker placement Weakness associated with nausea and vomiting -CT abd/pelvis reports "No definite acute process." -Protonix BID -Physical therapy consulted -Nausea/vomiting improved Elevated troponin CAD s/p 3 vessel CABG (2006) Myocardial infarction - EKG: No obvious ST segment changes - troponin 74/81/75/78 - preliminary transthoracic echocardiogram reports "normal EF, mitral annular calcification with mild to moderate mitral regurgitation, morderate aortic insufficiency, mild tricuspid regurgitation" - chest x-ray reports "Clear lungs." - S/P aspirin 324 mg PO x 1 in ED - Start daily baby aspirin and statin - Symptom control with PRN acetaminophen - continuous telemetry - TSH/FreeT4, lipid panel WNL DM-NIDDM- hypoglycemic -accucheck with SSI -reduced PO intake d/t not liking the food Hepatitis C Hypertension Hyperlipidemia -continue home medications Discharge Plan: Home Plan to discharge in: 24 Hours
--- NOTE | 2024-08-04 12:39 | P.PN ---
Subjective Date of Service: 08/04/24 Chief Complaint: Weakness associated with nausea and vomiting, elevated troponin Subjective: No new changes, No C/O voiced, Tolerating diet, Ambulating, Improving Review of Systems 10-point ROS is otherwise unremarkable Physical Examination - Vital Signs Temperature: 98.3 F Blood Pressure: 144/102 Pulse: 77 Respirations: 20 Pulse Ox (%): 99 - Physical Exam General: Alert, In no apparent distress HEENT: Atraumatic, PERRLA, EOMI Neck: Supple, JVD not distended Respiratory: Clear to auscultation bilaterally, Normal air movement Cardiovascular: Regular rate/rhythm, Normal S1 S2 Gastrointestinal: Normal bowel sounds, No tenderness Musculoskeletal: No tenderness Integumentary: No rashes Neurological: Normal speech, Normal tone, Normal affect Lymphatics: No axilla or inguinal lymphadenopathy - Studies Medications List Reviewed: Yes Assessment And Plan - Current Problems (Diagnosis) (1) CAD (coronary artery disease) of artery bypass graft Current Visit: Yes Status: Acute Plan: with history of CABG, patient denies chest pain, troponin leak is very mild with no significant delta. patient follow up with her cardiac surgeon and she is scheduled to see them saturday can follow up with us as outpatient and will get Records and cardiac PET if needed. No further in patient cardiac work up needed. (2) Chronic diastolic heart failure Current Visit: Yes Status: Acute Plan: patient looks euvolemic on exam continue current medications, avoid AVN blocking agents due to bradycardia. outpatient follow up to adjust medications. (3) Bradycardia Current Visit: Yes Status: Acute Plan: there was concerns for second degree type 2 heart block, continue to avoid AVN blocking agents patient will need to be transferred for pacemaker evaluation
[2024-08-05 05:24] LABS: Hematocrit 36.5 % (36.0-45.0); Hemoglobin 12.2 g/dL (12.0-15.0); MCH 27.8 pg (27.0-35.0); MCHC 33.4 g/dL (32.0-36.0); MCV 83.4 fL (80-100); MPV 9.4 fL (7.6-11.3); Platelets 217 thou/uL (152-406); RBC Red Blood Cell Count 4.38 M/uL (3.86-4.86); Red Cell Distribution Width 15.7 % (12.1-15.2)
[2024-08-05 05:47] LABS: Anion Gap 9.8 mEq/L (5.0-15.0); Magnesium 1.9 mg/dL (1.6-2.4); Phosphorus 3.6 mg/dL (2.5-4.9); Potassium 3.8 mEq/L (3.5-5.1)
[2024-08-05] MEDS: POTASSIUM 25 MEQ EFFERV TAB PO ONE (08:28)
--- NOTE | 2024-08-05 11:33 | P.PN ---
Subjective Date of Service: 08/05/24 Chief Complaint: Weakness associated with nausea and vomiting, elevated troponin Subjective: No new changes, No C/O voiced, Tolerating diet, Ambulating, Improving Review of Systems 10-point ROS is otherwise unremarkable Physical Examination - Vital Signs Temperature: 97.1 F Blood Pressure: 140/68 Pulse: 75 Respirations: 20 Pulse Ox (%): 100 - Physical Exam General: Alert, In no apparent distress HEENT: Atraumatic, PERRLA, EOMI Neck: Supple, JVD not distended Respiratory: Clear to auscultation bilaterally, Normal air movement Cardiovascular: Regular rate/rhythm, Normal S1 S2 Gastrointestinal: Normal bowel sounds, No tenderness Musculoskeletal: No tenderness Integumentary: No rashes Neurological: Normal speech, Normal tone, Normal affect Lymphatics: No axilla or inguinal lymphadenopathy - Studies Medications List Reviewed: Yes Assessment And Plan - Current Problems (Diagnosis) (1) CAD (coronary artery disease) of artery bypass graft Current Visit: Yes Status: Acute Plan: with history of CABG, patient denies chest pain, troponin leak is very mild with no significant delta. patient follow up with her cardiac surgeon and she is scheduled to see them saturday can follow up with us as outpatient and will get Records and cardiac PET if needed. No further in patient cardiac work up needed. (2) Chronic diastolic heart failure Current Visit: Yes Status: Acute Plan: patient looks euvolemic on exam continue current medications, avoid AVN blocking agents due to bradycardia. outpatient follow up to adjust medications. (3) Mobitz type 2 second degree heart block Current Visit: Yes Status: Acute Plan: Patient will need to be transferred to another hospital with EP coverage to be evaluated for pacemaker placement. avoid AVN blocking agents.
--- NOTE | 2024-08-05 13:06 | P.DS ---
Admission Date: 08/01/24 Discharge Date: 08/05/24 Disposition: TRANSFER TO [facility] Comment: [facility] Discharge Condition: GOOD Reason for Admission: Weakness associated with nausea and vomiting, elevated troponin Brief History of Present Illness: Miya Emanuel is a 78 year old female with pmhx CAD s/p 3 vessel CABG (2006), Diabetes - NIDDM, [place], Hepatitis C, Hyperlipidemia, Hypertension, who presents to the ED with complaints of nausea, vomiting, and weakness that began last night. Evaluation in the ER showing troponin of 74.9. On evaluation, she is sleeping comfortably, no complaints of abdominal palpation, no complaint of nausea or vomiting, reports she is feeling better. Laboratory evaluation significant for BUN/creatinine 27/1.38, GFR 39, troponin 74.9/81.9. Chest x-ray reports "Clear lungs." CT abd/pelvis reports "No definite acute process." Angio admitted to hospitalist service for further evaluation of elevated troponin and weakness. Hospital Course: Problem list Second-degree type II heart block Weakness associated with nausea and vomiting likely 2/2 to bradycardia Elevated troponin CAD s/p 3 vessel CABG (2006) Myocardial infarction DM-NIDDM Hepatitis C Hypertension Hyperlipidemia Vital Signs/Physical Exam: Temp Pulse Resp BP Pulse Ox 97.1 F 75 20 140/68 100 08/05/24 11:33 08/05/24 11:33 08/05/24 11:33 08/05/24 11:33 08/05/24 11:33 General: Alert, In no apparent distress, Oriented x3 HEENT: Atraumatic, PERRLA Neck: Supple, JVD not distended Respiratory: Clear to auscultation bilaterally, Normal air movement Cardiovascular: Regular rate/rhythm, Normal S1 S2 Gastrointestinal: Normal bowel sounds, No tenderness Musculoskeletal: No tenderness Integumentary: No rashes Neurological: Normal speech, Normal affect Laboratory Data at Discharge: WBC 5.20 thou/uL (4.3-10.9) 08/05/24 04:59 Hgb 12.2 g/dL (12.0-15.0) 08/05/24 04:59 Hct 36.5 % (36.0-45.0) 08/05/24 04:59 Plt Count 217 thou/uL (152-406) 08/05/24 04:59 PT 11.3 SECONDS (10-13.0) 07/31/24 03:57 INR 0.99 07/31/24 03:57 Sodium 138 mEq/L (136-145) 08/05/24 04:59 Potassium 3.8 mEq/L (3.5-5.1) 08/05/24 04:59 BUN 12 mg/dL (7-18) 08/05/24 04:59 Creatinine 1.02 mg/dL (0.55-1.02) 08/05/24 04:59 Glucose 102 mg/dL (74-106) 08/05/24 04:59 Phosphorus 3.6 mg/dL (2.5-4.9) 08/05/24 04:59 Magnesium 1.9 mg/dL (1.6-2.4) 08/05/24 04:59 Total Bilirubin 0.5 mg/dL (0.2-1.0) 07/31/24 03:57 AST 14 U/L (15-37) L 07/31/24 03:57 ALT 17 U/L (13-56) 07/31/24 03:57 Alkaline Phosphatase 76 U/L (45-117) 07/31/24 03:57 Triglycerides 129 mg/dL (<150) 08/01/24 05:14 Cholesterol 132 mg/dL (<200) 08/01/24 05:14 HDL Cholesterol 45 mg/dL (40-60) 08/01/24 05:14 Cholesterol/HDL Ratio 2.93 08/01/24 05:14 Lipase 60 U/L (13-75) 07/31/24 03:57 Home Medications: carvediloL [Coreg*] 12.5 mg PO BID 05/25/14 Aspirin [Adult Low Dose Aspirin EC] 81 mg PO DAILY 06/21/15 Clopidogrel Bisulfate [Plavix*] 75 mg PO DAILY 06/21/15 Amlodipine [Norvasc*] 5 mg PO DAILY 03/23/23 Atorvastatin Calcium [Lipitor] 40 mg PO BEDTIME 03/23/23 Insulin Degludec [Tresiba Flextouch U-200] 20 units SQ DAILY 03/23/23 lisinopriL [Zestril] 20 mg PO DAILY 03/23/23 Empagliflozin [Jardiance] 25 mg PO DAILY 07/31/24 Furosemide [Lasix] 20 mg PO DAILY 07/31/24 Semaglutide [Ozempic] 1.5 mg SQ EVERY 7TH DAY 07/31/24 Sodium Zirconium Cyclosilicate [Lokelma] 10 gm PO DAILY 07/31/24 Physician Discharge Instructions: Patient was admitted to the hospital for nausea, vomiting and elevated troponin. Her troponins trended flat she was seen by cardiology who recommended further workup with her primary financial systems manager. During hospitalization she was noted to have bradycardic episodes typically lasting for a few seconds at a time but suspicious for a secondary type II block. Cardiology reviewed rhythm strips and recommended transfer for EP evaluation and possible pacemaker insertion.' Patient is accepted for transfer to [facility] for further management of her second-degree type II block. Followup: Effie Cerna MD [Primary Care Provider] - Time spent managing pt's care (in minutes): 49
[2024-08-05 13:07] VITALS: BMI 27.2
[2024-08-05 13:16] VITALS: BP 131/101; TEMP 98
== END 2024-08-05 13:00 | disposition short-term general hospital (02) | DRG 309 ==
LOC: ER 02:55 → ERHOLD 09:45 → 2ND 15:19 → OBSVTOIN 08-01 17:01 → 3RD-ICU 08-02 16:58
PROVIDERS: ADMIT Hospitalist; ATTEND Internal Medicine
DX: R00.1 Bradycardia, unspecified (principal); I50.32 Chronic diastolic (congestive) heart failure; I11.0 Hypertensive heart disease with heart failure; I44.1 Atrioventricular block, second degree; E78.5 Hyperlipidemia, unspecified; E66.9 Obesity, unspecified; E11.65 Type 2 diabetes mellitus with hyperglycemia; E11.649 Type 2 diabetes mellitus with hypoglycemia without coma; I08.1 Rheumatic disorders of both mitral and tricuspid valves; I25.10 Atherosclerotic heart disease of native coronary artery without angina pectoris; I25.2 Old myocardial infarction; B19.20 Unspecified viral hepatitis C without hepatic coma; R79.89 Other specified abnormal findings of blood chemistry; Z79.4 Long term (current) use of insulin; Z95.1 Presence of aortocoronary bypass graft; Z68.26 Body mass index [BMI] 26.0-26.9, adult; Z79.02 Long term (current) use of antithrombotics/antiplatelets; Z79.899 Other long term (current) drug therapy
CPT/HCPCS: 36415; 71045; 74176; 80048; 80061; 80076; 80307; 81003; 82947; 83690; 83735; 83880; 84100; 84439; 84443; 84484; 85025; 85027; 85610; 93005; 93306; 96360; 96361; 96372; 97116; 97161; 99285; G0378; J0360; J0461; J0744; J1650; J2470; J7030; J7042